=== PATIENT | male | born 1990 | race Caucasian/White ===

== ENCOUNTER 2019-01-31 10:38 | Emergency (ER) | payer SELFPAY ==
[2019-01-31] MEDS ORDERED: ASPIRIN 81 MG TABLET, CHEWABLE PO ONE (11:17)
[2019-01-31 11:23] LABS: ABSOLUTE EOSINOPHILS # (AUTO) 0.1 10^3/uL (0.0-0.6); ABSOLUTE MONOCYTES (AUTO) 1.2 10^3/uL (0.1-1.4); ABSOLUTE NEUT (AUTO) 10.1 10^3/uL (1.7-8.2); BASOPHILS % (AUTO) 0.4 % (0-2); EOSINOPHILS % (AUTO) 0.8 % (0-6); HEMATOCRIT 37.6 % (37.9-51.0); HEMOGLOBIN 12.8 g/dL (13.5-17.0); LYMPHOCYTES % (AUTO) 14.6 % (13-45); MEAN CORPUSCULAR HGB CONC 34.2 g/dL (32.0-36.0); MEAN CORPUSCULAR VOLUME 97 fl (80-97); MONOCYTES % (AUTO) 9.2 % (3-13); PLATELET COUNT 181 10^3/uL (150-450); RED CELL DISTRIBUTION WIDTH 14.9 % (11.5-14.0); TOTAL CELLS COUNTED % (AUTO) 100 %; WHITE BLOOD COUNT 13.5 10^3/uL (4.0-10.5)
--- NOTE | 2019-01-31 11:35 | ER Document Report ---
ED Medical Screen (RME) - General Chief Complaint: Chest Pain Stated Complaint: CHEST PAIN, LEFT ARM PAIN Time Seen by Provider: 01/31/19 11:31 Primary Care Provider: ROSANGELA FAGAN [Primary Care Provider] - Follow up as needed Mode of Arrival: Ambulatory Information source: Patient Notes: 28-year-old male presented to ED for complaint of chest pain. He states is been going on for couple weeks but he started having numbness down his arm with shortness of breath he has had aches. He denies any nausea vomiting or diarrhea. Drinks every day smokes a pack and a half a day he states he also uses Subutex every other day probably less than a half a pole. Patient is alert oriented respirations regular nonlabored speaking in full sentences. I have greeted and performed a rapid initial assessment of this patient. A comprehensive ED assessment and evaluation of the patient, analysis of test results and completion of medical decision making process will be conducted by an additional ED providers. - Related Data Allergies/Adverse Reactions: No Known Allergies Allergy (Unverified 01/31/19 10:40) Past Medical History - Social History Chew tobacco use (# tins/day): No Frequency of alcohol use: Heavy Drug Abuse: None Course - Laboratory Result Diagrams: 01/31/19 11:15 01/31/19 11:15 Laboratory results interpreted by me: 01/31/19 11:15 WBC 13.5 H RBC 3.90 L Hgb 12.8 L Hct 37.6 L RDW 14.9 H Absolute Neuts (auto) 10.1 H Doctor's Discharge - Discharge Referrals: ROSANGELA FAGAN [Primary Care Provider] - Follow up as needed
[2019-01-31 11:40] LABS: ALBUMIN 4.8 g/dL (3.5-5.0); ALKALINE PHOSPHATASE 94 U/L (38-126); ANION GAP 9 (5-19); ASPARTATE AMINO TRANSFERASE 160 U/L (17-59); BILIRUBIN,DIRECT 0.1 mg/dL (0.0-0.4); BILIRUBIN,TOTAL 0.4 mg/dL (0.2-1.3); BLOOD UREA NITROGEN 15 mg/dL (7-20); CALCIUM 9.6 mg/dL (8.4-10.2); CARBON DIOXIDE 29 mmol/L (22-30); CHLORIDE 99 mmol/L (98-107); CREATINE KINASE 218 U/L (55-170); GLUCOSE 97 mg/dL (75-110); POTASSIUM 4.1 mmol/L (3.6-5.0); TOTAL PROTEIN 7.3 g/dL (6.3-8.2)
[2019-01-31 11:54] LABS: TROPONIN I < 0.012 ng/mL
--- NOTE | 2019-01-31 11:57 | RADIOLOGY REPORT (SQ) ---
EXAM DESCRIPTION: CHEST SINGLE VIEW COMPLETED DATE/TIME: 01/31/2019 11:49 am REASON FOR STUDY: chest pain COMPARISON: None. EXAM PARAMETERS: NUMBER OF VIEWS: One view. TECHNIQUE: Single frontal radiographic view of the chest acquired. RADIATION DOSE: NA LIMITATIONS: None. FINDINGS: LUNGS AND PLEURA: No opacities, masses or pneumothorax. No pleural effusion. MEDIASTINUM AND HILAR STRUCTURES: No masses. Contour normal. HEART AND VASCULAR STRUCTURES: Heart normal in size. Normal vasculature. BONES: No acute findings. HARDWARE: None in the chest. OTHER: No other significant finding. IMPRESSION: NO ACUTE RADIOGRAPHIC FINDING IN THE CHEST. TECHNICAL DOCUMENTATION: JOB ID: [id number] [employer]- All Rights Reserved Reading location - IP/workstation name: [email or web address]
[2019-01-31] MEDS ORDERED: NORMAL SALINE 1000 ML 1,000 ML IV ONE (13:32)
[2019-01-31] MEDS ORDERED: LIDOCAINE 2% VISCOUS SOLN 20 ML UDCUP PO ONE (16:04)
[2019-01-31] MEDS ORDERED: METOCLOPRAMIDE HCL ORAL SOLN 10 MG/10 ML UDCUP PO ONE (16:04)
[2019-01-31] MEDS ORDERED: MAG HYDROX/AL HYDROX/SIMETH SUSP 30 ML UDCUP PO ONE (16:04)
[2019-01-31 16:33] LABS: URINE AMPHETAMINES SCREEN NEGATIVE; URINE BARBITURATES SCREEN NEGATIVE; URINE BENZODIAZEPINES SCREEN NEGATIVE; URINE COCAINE SCREEN NEGATIVE; URINE MARIJUANA (THC) SCREEN NEGATIVE; URINE METHADONE SCREEN NEGATIVE; URINE PHENCYCLIDINE SCREEN NEGATIVE
--- NOTE | 2019-01-31 17:23 | ER Document Report ---
ED General - General Chief Complaint: Chest Pain Stated Complaint: CHEST PAIN, LEFT ARM PAIN Time Seen by Provider: 01/31/19 11:31 Primary Care Provider: ROSANGELA FAGAN [NO LOCAL MD] - Follow up as needed Mode of Arrival: Ambulatory Notes: RME NOTE: 28-year-old male presented to ED for complaint of chest pain. He states is been going on for couple weeks but he started having numbness down his arm with shortness of breath he has had aches. He denies any nausea vomiting or diarrhea. Drinks every day smokes a pack and a half a day he states he also uses Subutex every other day probably less than a half a pole. Patient is alert oriented respirations regular nonlabored speaking in full sentences. MY HPI: Patient voices upon my assessment that he has had sharp epigastric abdominal pains intermittently for the last couple of weeks. States he has not taken any medications. States that sometimes he feels as though bilateral upper extremities go numb. When I asked him specifically if he feels as though he is breathing fast during his episodes he stops to think. States "yeah I guess." States his mother has at an early age from coronary artery disease which concerned him which is why he presents to the emergency room. Patient voices he does smoke cigarettes but is denying any history of high blood pressure, hyperlipidemia, diabetes. - Related Data Allergies/Adverse Reactions: No Known Allergies Allergy (Unverified 01/31/19 10:40) Past Medical History - General Information source: Patient - Social History Smoking Status: Current Every Day Smoker Chew tobacco use (# tins/day): No Frequency of alcohol use: Heavy Drug Abuse: None Family History: Reviewed & Not Pertinent Patient has suicidal ideation: No Patient has homicidal ideation: No Review of Systems - Review of Systems Constitutional: denies: Fever EENT: No symptoms reported Cardiovascular: See HPI Respiratory: No symptoms reported Gastrointestinal: See HPI Genitourinary: No symptoms reported Male Genitourinary: No symptoms reported Musculoskeletal: No symptoms reported Skin: No symptoms reported Hematologic/Lymphatic: No symptoms reported Neurological/Psychological: No symptoms reported Physical Exam - Vital signs Vitals: Resp Pulse Ox 19 97 01/31/19 11:17 01/31/19 11:17 - Notes Notes: GENERAL: Alert, interacts well. No acute distress. HEAD: Normocephalic, atraumatic. EYES: Pupils equal, round, and reactive to light. Extraocular movements intact. ENT: Oral mucosa moist, tongue midline. NECK: Full range of motion. Supple. Trachea midline. LUNGS: Clear to auscultation bilaterally, no wheezes, rales, or rhonchi. No respiratory distress. HEART: Regular rate and rhythm. No murmur ABDOMEN: Soft, epigastric abdominal pain noted. No right upper quadrant or left upper quadrant pain noted. Non-distended. Bowel sounds present in all 4 quadrants. EXTREMITIES: Moves all 4 extremities spontaneously. No edema, normal radial and dorsalis pedis pulses bilaterally. No cyanosis. BACK: no cervical, thoracic, lumbar midline tenderness. No saddle anesthesia, normal distal neurovascular exam. NEUROLOGICAL: Alert and oriented x3. Normal speech. cranial nerves II through XII grossly intact. PSYCH: Normal affect, normal mood. SKIN: Warm, dry, normal turgor. No rashes or lesions noted. Course - Re-evaluation Re-evalutation: Initial orders placed by E provider. Upon my assessment patient does appear to have more epigastric abdominal pain. Lipase added to order. Lipase is negative. Patient was given a GI cocktail which relieved his pain. Discussed with patient likely diagnosis of gastritis and following up with primary care provider. At this time will discharge with return precautions and follow-up recommendations. Verbal discharge instructions given a the bedside and opportunity for questions given. Medication warnings reviewed. Patient is in agreement with this plan and has verbalized understanding of return precautions and the need for primary care follow-up in the next 24-72 hours. This medical record was dictated with voice recognizing software. There may be grammatical, syntax errors that are unintended. EKG shows sinus rhythm rate of 92, QTc 446, normal early repolarization pattern. - Vital Signs Vital signs: Temp Pulse Resp BP Pulse Ox 98.5 F 12 130/75 H 97 01/31/19 11:33 01/31/19 12:30 01/31/19 12:30 01/31/19 12:30 - Laboratory Result Diagrams: 01/31/19 11:15 01/31/19 11:15 Laboratory results interpreted by me: 01/31/19 01/31/19 11:15 11:15 WBC 13.5 H RBC 3.90 L Hgb 12.8 L Hct 37.6 L RDW 14.9 H Absolute Neuts (auto) 10.1 H Sodium 136.8 L AST 160 H Creatine Kinase 218 H Discharge - Discharge Clinical Impression: Epigastric abdominal pain Gastritis Qualifiers: Gastritis type: unspecified gastritis Chronicity: acute Gastritis bleeding: without bleeding Qualified Code(s): K29.00 - Acute gastritis without bleeding Condition: Stable Disposition: HOME, SELF-CARE Instructions: Gastritis ([facility]) Additional Instructions: You have been seen and treated in the emergency department for your generalized epigastric abdominal pain. Likely this is gastritis. This is an inflammation of your esophageal lining. Please take medications as prescribed. Please also follow-up at [facility], [facility] for continued care. Return to the emergency room for any concerns. Prescriptions: Sucralfate [Carafate 1 gm Tablet] 1 gm PO QID #20 tablet Famotidine [Pepcid 40 mg Tablet] 40 mg PO BID #60 tablet Forms: Return to Work Referrals: RYLAN,NO [NO LOCAL MD] - Follow up as needed [facility] [Provider Group] - Follow up as needed [facility] [Provider Group] - Follow up as needed
[2019-01-31 17:56] VITALS: BP 132/84
--- NOTE | 2019-02-01 08:45 | EKG REPORT ---
SEVERITY:- NORMAL ECG - SINUS RHYTHM ST ELEV, PROBABLE NORMAL EARLY REPOL PATTERN : Confirmed by: Racheal Barrera MD 01-Feb-2019 08:44:59
== END 2019-01-31 17:56 | disposition home or self-care (01) ==
LOC: ER 10:38
DX: K29.00 Acute gastritis without bleeding (principal); R10.13 Epigastric pain; M79.602 Pain in left arm; R07.9 Chest pain, unspecified; R20.0 Anesthesia of skin; R06.02 Shortness of breath; F17.200 Nicotine dependence, unspecified, uncomplicated
CPT/HCPCS: 93005; 99284; 96360; 36415; 82553; 82550; 83690; 85025; 80053; 84484; 80307; 71045; 93010; J3490; J7030

== ENCOUNTER 2019-07-13 06:35 | Inpatient (IN) | payer SELFPAY ==
[2019-07-13] MEDS ORDERED: NORMAL SALINE 1000 ML 1,000 ML IV ONE (06:45)
[2019-07-13] MEDS ORDERED: ONDANSETRON HCL INJ/PF 4 MG/2 ML SDV IV ONE ×2 (06:45→14:03)
[2019-07-13 07:05] LABS: ABSOLUTE BASOPHILS # (AUTO) 0.1 10^3/uL (0.0-0.2); ABSOLUTE LYMPHOCYTES (AUTO) 1.5 10^3/uL (0.5-4.7); ABSOLUTE MONOCYTES (AUTO) 0.7 10^3/uL (0.1-1.4); ABSOLUTE NEUT (AUTO) 9.6 10^3/uL (1.7-8.2); BASOPHILS % (AUTO) 0.5 % (0-2); EOSINOPHILS % (AUTO) 0.2 % (0-6); HEMATOCRIT 31.9 % (37.9-51.0); HEMOGLOBIN 11.2 g/dL (13.5-17.0); LYMPHOCYTES % (AUTO) 12.8 % (13-45); MEAN CORPUSCULAR HEMOGLOBIN 38.8 pg (27.0-33.4); MEAN CORPUSCULAR HGB CONC 35.1 g/dL (32.0-36.0); MONOCYTES % (AUTO) 5.8 % (3-13); PLATELET COUNT 242 10^3/uL (150-450); RED BLOOD COUNT 2.89 10^6/uL (4.35-5.55); RED CELL DISTRIBUTION WIDTH 20.2 % (11.5-14.0); SEGMENTED NEUTROPHILS % (AUTO) 80.7 % (42-78); TOTAL CELLS COUNTED % (AUTO) 100 %; WHITE BLOOD COUNT 11.9 10^3/uL (4.0-10.5)
[2019-07-13] MEDS ORDERED: MORPHINE SULFATE 10 MG/ML INJ IV ONE ×5 (07:18→15:28)
[2019-07-13] MEDS ORDERED: LIDOCAINE 2% VISCOUS SOLN 15 ML UDCUP PO ONE (07:19)
[2019-07-13] MEDS ORDERED: MAG HYDROX/AL HYDROX/SIMETH SUSP 30 ML UDCUP PO ONE (07:19)
[2019-07-13] MEDS ORDERED: PANTOPRAZOLE SODIUM 40 MG VIAL IV ONE (07:20)
[2019-07-13 07:21] LABS: ALBUMIN 3.3 g/dL (3.5-5.0); ALKALINE PHOSPHATASE 197 U/L (38-126); ANION GAP 7 (5-19); ASPARTATE AMINO TRANSFERASE 102 U/L (17-59); BILIRUBIN,DIRECT 0.3 mg/dL (0.0-0.4); BILIRUBIN,TOTAL 1.2 mg/dL (0.2-1.3); BLOOD UREA NITROGEN 11 mg/dL (7-20); CALCIUM 8.2 mg/dL (8.4-10.2); CARBON DIOXIDE 29 mmol/L (22-30); CHLORIDE 102 mmol/L (98-107); GLUCOSE 115 mg/dL (75-110); POTASSIUM 3.5 mmol/L (3.6-5.0)
[2019-07-13 07:26] LABS: MEAN CORPUSCULAR VOLUME 111 fl (80-97)
[2019-07-13 07:29] LABS: ANISOCYTOSIS 2+; HOWELL-JOLLY BODIES PRESENT; PLATELET CLUMPS PRESENT; PLATELET COMMENT ADEQUATE; POLYCHROMASIA SLIGHT; STOMATOCYTES 1+
--- NOTE | 2019-07-13 08:06 | ER Document Report ---
Entered by ELENI MENDOZA SCRIBE 07/13/19 0717 Acting as scribe for:ASHLEY VILLANUEVA MD ED GI/ - General Chief Complaint: Abdominal Pain Stated Complaint: STOMACH PAIN Time Seen by Provider: 07/13/19 06:59 Primary Care Provider: OSCAR SINGLETON MD [Primary Care Provider] - Follow up as needed Mode of Arrival: Ambulatory Information source: Patient Notes: This 28-year-old male patient presents to the emergency department today with complaints of upper abdominal pain which began a few hours prior to arrival. Patient is writhing around in the bed and appears to be in significant pain. Patient is a daily drinker, when asked how much he drinks daily he says "I do not know, asked her" and motions to a female medical records specialist at bedside. She reports that he consumes approximately x3-4 22 ounce beers a day. Patient has vomited twice. Patient reported to nursing staff at triage that every morning when he wakes up he has nausea and dry heaves. Patient also reported somewhat chronic mild abdominal pain but he states that today is by far the worst pain he has had. Pertinent PMHx/PSHx: EtOH abuse - additional PMHx/PSHx not pertinent to this visit as recorded. PCP: none TRAVEL OUTSIDE OF THE [place] IN LAST 30 DAYS: No - Related Data Allergies/Adverse Reactions: No Known Allergies Allergy (Unverified 01/31/19 10:40) Home Medications: prilosec Past Medical History - General Information source: Patient, [facility] Records - Social History Smoking Status: Current Every Day Smoker Cigarette use (# per day): Yes Frequency of alcohol use: daily Lives with: Spouse/Significant other Family History: Reviewed & Not Pertinent Patient has suicidal ideation: No Patient has homicidal ideation: No - Medical History Medical History: Negative Surgical Hx: Negative Review of Systems - Review of Systems Constitutional: No symptoms reported EENT: No symptoms reported Cardiovascular: No symptoms reported Respiratory: No symptoms reported Gastrointestinal: See HPI, Abdominal pain, Nausea, Vomiting Genitourinary: No symptoms reported Male Genitourinary: No symptoms reported Musculoskeletal: No symptoms reported Skin: No symptoms reported Hematologic/Lymphatic: No symptoms reported Neurological/Psychological: No symptoms reported -: Yes All other systems reviewed and negative Physical Exam - Vital signs Vitals: Temp Pulse Resp BP Pulse Ox 97.5 F 96 18 140/81 H 100 07/13/19 06:39 07/13/19 06:39 07/13/19 06:39 07/13/19 06:39 07/13/19 06:39 - Notes Notes: Physical Exam: General: Alert, appears quite uncomfortable, writhing around in the bed compl aining of pain. HEENT: Normocephalic. Atraumatic. PERRL. Extraocular movements intact. Oropharynx clear. Neck: Supple. Non-tender. Respiratory: No respiratory distress. Clear and equal breath sounds bilaterally. Cardiovascular: Regular rate and rhythm. Abdominal: Markedly decreased, nearly absent bowel sounds. Guarding throughout. Patient is moderately tender with palpation across his entire abdomen, severe tenderness with palpation of the upper abdomen. Unable to tell if there is true rebound tenderness. No distension. Back: No gross abnormalities. Extremities: Moves all four extremities. Upper extremities: Normal inspection. Normal ROM. Lower extremities: Normal inspection. No edema. Normal ROM. Neurological: Normal cognition. AAOx4. Normal speech. Psychological: Normal affect. Normal Mood. Skin: Warm. Dry. Normal color. Course - Vital Signs Vital signs: Temp Pulse Resp BP Pulse Ox 99 F 96 24 H 100/86 H 98 07/13/19 15:42 07/13/19 06:39 07/13/19 12:33 07/13/19 14:01 07/13/19 15:04 - Laboratory Result Diagrams: 07/13/19 06:49 07/13/19 06:49 Laboratory results interpreted by me: 07/13/19 07/13/19 07/13/19 06:49 06:49 06:49 WBC 11.9 H RBC 2.89 L Hgb 11.2 L Hct 31.9 L MCV 111 H MCH 38.8 H RDW 20.2 H Lymph % (Auto) 12.8 L Absolute Neuts (auto) 9.6 H Seg Neutrophils % 80.7 H Potassium 3.5 L Glucose 115 H Calcium 8.2 L AST 102 H Alkaline Phosphatase 197 H Total Protein 6.0 L Albumin 3.3 L Lipase 4981.6 H - Diagnostic Test Radiology reviewed: Image reviewed, Reports reviewed - Right upper quadrant ultrasound is read as a distended gallbladder with no other abnormalities. When I looked at the ultrasound, the gallbladder did not look distended. CT scan of the abdomen pelvis with IV and oral contrast shows acute pancreatitis, moderate ascites, hepatomegaly with moderate hepatic steatosis. - Consults Dr. Martin Time consulted: 10:35 Consulted provider: will come to ER - Recommends medicine admission, and CT scan with oral and IV contrast. Discharge - Discharge Clinical Impression: Acute abdominal pain Pancreatitis Qualifiers: Chronicity: acute Pancreatitis type: unspecified pancreatitis type Acute p ancreatitis complication: unspecified Qualified Code(s): K85.90 - Acute pancreatitis without necrosis or infection, unspecified Condition: Stable Disposition: ADMITTED INPATIENT Admitting Provider: Maggie (Hospitalist) Unit Admitted: Medical Floor Referrals: OSCAR SINGLETON MD [Primary Care Provider] - Follow up as needed Scribe Attestation: 07/13/19 07:26 I personally performed the services described in the documentation, reviewed and edited the documentation which was dictated to the scribe in my presence, and it accurately records my words and actions. I personally performed the services described in the documentation, reviewed and edited the documentation which was dictated to the scribe in my presence, and it accurately records my words and actions.
--- NOTE | 2019-07-13 08:22 | RADIOLOGY REPORT (SQ) ---
EXAM DESCRIPTION: ACUTE ABDOMEN SERIES COMPLETED DATE/TIME: 07/13/2019 7:53 am REASON FOR STUDY: Severe epigastric abd pain,chronic EtOH abuse COMPARISON: None. NUMBER OF VIEWS: Three views. TECHNIQUE: Frontal chest, supine abdomen and upright/decubitus abdomen radiographic images acquired. LIMITATIONS: None. FINDINGS: CHEST: Lungs clear of infiltrates. FREE AIR: None. No abnormal gas collections. BOWEL GAS PATTERN: Nonobstructive pattern. No dilated loops or air fluid levels. CALCIFICATIONS: No suspicious calcifications. HARDWARE: None in the abdomen. SOFT TISSUES: No gross mass or suggestion of organomegaly. BONES: No acute fracture. No worrisome bone lesions. OTHER: No other significant finding. IMPRESSION: NO RADIOGRAPHIC EVIDENCE FOR ACUTE ABDOMINAL DISEASE. TECHNICAL DOCUMENTATION: JOB ID: [id number] 2010 [employer]- All Rights Reserved Reading location - IP/workstation name: [email or web address]
[2019-07-13] MEDS ORDERED: RINGERS SOLUTION,LACTATED 1,000 ML IV ONE ×2 (08:37→15:44)
[2019-07-13] MEDS ORDERED: MORPHINE SULFATE 10 MG/ML INJ NEB ONE (08:52)
[2019-07-13 09:22] LABS: APPEARANCE,URINE CLEAR; BILIRUBIN,URINE NEGATIVE (NEGATIVE); COLOR,URINE YELLOW; GLUCOSE, URINE NEGATIVE (NEGATIVE); KETONES,URINE NEGATIVE (NEGATIVE); LEUKOCYTE ESTERASE,URINE NEGATIVE (NEGATIVE); NITRITE,URINE NEGATIVE (NEGATIVE); PROTEIN,URINE NEGATIVE (NEGATIVE); URINE SPECIFIC GRAVITY 1.013; UROBILINOGEN,URINE NEGATIVE mg/dL (<2.0)
--- NOTE | 2019-07-13 09:43 | RADIOLOGY REPORT (SQ) ---
EXAM DESCRIPTION: U/S ABDOMEN LIMITED W/O DOP COMPLETED DATE/TIME: 07/13/2019 9:27 am REASON FOR STUDY: Acute pancreatitis COMPARISON: None. TECHNIQUE: Dynamic and static grayscale images acquired of the abdomen and recorded on PACS. Additio nal selected color Doppler and spectral images recorded. LIMITATIONS: None. FINDINGS: PANCREAS: No masses. Visualized pancreatic duct normal caliber. LIVER: No masses. Echotexture normal. LIVER VASCULATURE: Normal directional flow of the main portal vein and hepatic veins. GALLBLADDER: Distended. No gallstones or wall thickness. ULTRASOUND-DETECTED OHARA'S SIGN: Positive. INTRAHEPATIC DUCTS AND COMMON DUCT: CBD and intrahepatic ducts normal caliber. No filling defects. INFERIOR VENA CAVA: Normal flow. AORTA: No aneurysm. RIGHT KIDNEY: Normal size. Normal echogenicity. No solid or suspicious masses. No hydronephrosis. No calcifications. PERITONEAL AND RIGHT PLEURAL SPACE: No ascites or effusions. OTHER: No other significant findings. IMPRESSION: Distended gallbladder without stones. Positive sonographic Ohara's sign. TECHNICAL DOCUMENTATION: JOB ID: [id number] 2010 [employer]- All Rights Reserved Reading location - IP/workstation name: [email or web address]
[2019-07-13] MEDS ORDERED: PIPERACILLIN/TAZOBACTAM 3.375 GM VIAL IV ONE (10:56)
--- NOTE | 2019-07-13 11:06 | PDOC CONSULTATION ---
Consultation Consult Date: 07/13/19 Attending physician:: SILAS VILLANUEVA Provider Consulted: BRIAN BERMUDEZ Consult reason:: Acute abdominal pain History of Present Illness Admission Date/PCP: OSCAR SINGLETON MD History of Present Illness: KACY DUMAS is a 28 year old male Presents emergency department via ground rescue complaining of acute onset abdominal pain nausea and one episode of vomiting. Last bowel movement earlier this morning, normal. Patient reports a history of waking up with dry heaves and nausea. He drinks alcohol, specifically multiple beers, daily. He denies history of pancreatitis, but admits to having had gastritis. In the emergency department he was found to have significant abdominal tenderness and acute abdominal series was interpreted as normal. Patient had a right upper quadrant ultrasound which was interpreted as having a distended gallbladder. Patient's liver function studies within normal limits. His lipase level was 4981. Surgery was consulted to rule out surgical cause for his symptoms. He has received IV fluids and pain medication in the ED Past Medical History Past Medical History: Gastritis: Alcohol abuse, smoking Past Surgical History Past Surgical History: Nonoperative management of the thumb injury Social History Lives with: Spouse/Significant other Smoking Status: Current Every Day Smoker Electronic Cigarette use?: No Frequency of Alcohol Use: Heavy Hx Recreational Drug Use: No Hx Prescription Drug Abuse: No Family History Family History: None, Reviewed & Not Pertinent Parental Family History Reviewed: No Children Family History Reviewed: No Sibling(s) Family History Reviewed.: No Medication/Allergy Home Medications: Famotidine [Pepcid 40 mg Tablet] 40 mg PO BID #60 tablet 01/31/19 Sucralfate [Carafate 1 gm Tablet] 1 gm PO QID #20 tablet 01/31/19 Allergies/Adverse Reactions: No Known Allergies Allergy (Unverified 01/31/19 10:40) Review of Systems Constitutional: PRESENT: as per HPI Eyes: ABSENT: visual disturbances Ears: ABSENT: hearing changes Cardiovascular: ABSENT: chest pain, dyspnea on exertion, edema, orthropnea, palpitations Respiratory: ABSENT: cough, hemoptysis Gastrointestinal: PRESENT: as per HPI, other - Denies history of trauma; has nausea, and dry heaves in the morning. Genitourinary: ABSENT: dysuria, hematuria Musculoskeletal: ABSENT: joint swelling Endocrine: ABSENT: cold intolerance, heat intolerance, polydipsia, polyuria Hematologic/Lymphatic: ABSENT: easy bleeding, easy bruising Physical Exam Vital Signs: Temp Pulse Resp BP Pulse Ox 97.5 F 96 22 H 125/79 98 07/13/19 06:39 07/13/19 06:39 07/13/19 09:01 07/13/19 09:01 07/13/19 09:01 Intake & Output 07/12/19 07/13/19 07/14/19 06:59 06:59 06:59 Intake Total 1999 Balance 1999 Weight 99.3 kg General appearance: PRESENT: mild distress, other - Patient unable to get comfortable in the bed Head exam: PRESENT: atraumatic Eye exam: PRESENT: EOMI Ear exam: PRESENT: normal external ear exam Mouth exam: PRESENT: dry mucosa Neck exam: PRESENT: full ROM Respiratory exam: PRESENT: clear to auscultation cheri Cardiovascular exam: PRESENT: RRR Pulses: PRESENT: normal carotid pulses, normal radial pulses, normal femoral pulses, normal dorsalis pedis pul GI/Abdominal exam: PRESENT: other - Slightly distended, hypoactive bowel sounds, diffusely tender. Poorly localized Rectal exam: PRESENT: deferred Extremities exam: PRESENT: full ROM Musculoskeletal exam: PRESENT: full ROM Neurological exam: PRESENT: oriented to person, oriented to place, oriented to time, oriented to situation Psychiatric exam: PRESENT: anxious Results Laboratory Results: 07/13/19 06:49 07/13/19 06:49 07/13/19 07/13/19 07/13/19 06:49 06:49 06:49 WBC 11.9 H RBC 2.89 L Hgb 11.2 L Hct 31.9 L MCV 111 H MCH 38.8 H MCHC 35.1 RDW 20.2 H Plt Count 242 Seg Neutrophils % 80.7 H Sodium 137.6 Potassium 3.5 L Chloride 102 Carbon Dioxide 29 Anion Gap 7 BUN 11 Creatinine 0.77 Est GFR ( Amer) > 60 Glucose 115 H Calcium 8.2 L Total Bilirubin 1.2 AST 102 H Alkaline Phosphatase 197 H Total Protein 6.0 L Albumin 3.3 L Lipase 4981.6 H Urine Color Urine Appearance Urine pH Ur Specific [place] Urine Protein Urine Glucose (UA) Urine Ketones Urine Blood Urine Nitrite Ur Leukocyte Esterase Urine WBC (Auto) 07/13/19 08:57 WBC RBC Hgb Hct MCV MCH MCHC RDW Plt Count Seg Neutrophils % Sodium Potassium Chloride Carbon Dioxide Anion Gap BUN Creatinine Est GFR ( Amer) Glucose Calcium Total Bilirubin AST Alkaline Phosphatase Total Protein Albumin Lipase Urine Color YELLOW Urine Appearance CLEAR Urine pH 5.0 Ur Specific [place] 1.013 Urine Protein NEGATIVE Urine Glucose (UA) NEGATIVE Urine Ketones NEGATIVE Urine Blood NEGATIVE Urine Nitrite NEGATIVE Ur Leukocyte Esterase NEGATIVE Urine WBC (Auto) 2 Impressions: Acute Abdomen Series 07/13/19 07:18 IMPRESSION: NO RADIOGRAPHIC EVIDENCE FOR ACUTE ABDOMINAL DISEASE. Abdomen Ultrasound 07/13/19 08:37 IMPRESSION: Distended gallbladder without stones. Positive sonographic Ohara's sign. Assessment & Plan - Diagnosis (1) Acute abdominal pain Is this a current diagnosis for this admission?: Yes Plan: Impression: Acute onset abdominal pain with significant abdominal tenderness, nonlocalized, guarding, leukocytosis, and fairly unremarkable imaging thus far. 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 The gallbladder on ultrasonography does not appear distended, and there are no stones. Acute abdominal series suggests intraperitoneal edema versus fluid. Liver function studies within normal limits. There is no immediate indication for surgical intervention. Recommendations: 1. Patient needs admission for management of pain, IV fluids, n.p.o. status. I have suggested the patient be admitted to the hospitalist service with surgery consulting and this was discussed with Dr. Silas Graves. 2. I have recommended we obtain a CT scan of the abdomen and pelvis with oral contrast to further delineate the extent of pancreatitis, and to rule out potential causes of his acute abdominal pain. 3. I explained what pancreatitis is to the patient and his significant mother, and the initial management thereof. 4. We will follow patient with you. (2) Pancreatitis Qualifiers: Chronicity: acute Pancreatitis type: unspecified pancreatitis type Acute pancreatitis complication: unspecified Qualified Code(s): K85.90 - Acute pancreatitis without necrosis or infection, unspecified Is this a current diagnosis for this admission?: Yes (3) Smoker Is this a current diagnosis for this admission?: Yes (4) Alcohol abuse Is this a current diagnosis for this admission?: Yes - Time Time Spent: 30 to 50 Minutes Smoking Cessation Education: 3 to 10 minutes Medications reviewed and adjusted accordingly: Yes Anticipated discharge: Home - Inpatient Certification Based on my medical assessment, after consideration of the patient's comorbidities, presenting symptoms, or acuity I expect that the services needed warrant INPATIENT care.: Yes I certify that my determination is in accordance with my understanding of Medicare's requirements for reasonable and necessary INPATIENT services [42 CFR 412.3e].: Yes Medical Necessity: Need For IV Fluids, Need for Pain Control
--- NOTE | 2019-07-13 15:47 | RADIOLOGY REPORT (SQ) ---
EXAM DESCRIPTION: CT ABD/PELVIS WITH IV ORAL COMPLETED DATE/TIME: 07/13/2019 2:09 pm REASON FOR STUDY: Acute pancreatitis, ascites, guarding. COMPARISON: Abdominal ultrasound, same date. TECHNIQUE: CT scan of the abdomen and pelvis performed using helical scanning technique with dynamic intravenous contrast injection. No oral contrast. Images reviewed with lung, soft tissue, and bone windows. Reconstructed coronal and sagittal MPR images reviewed. Delayed images for evaluation of the urinary system also acquired. All images stored on PACS. All CT scanners at this facility use dose modulation, iterative reconstruction, and/or weight based d osing when appropriate to reduce radiation dose to as low as reasonably achievable (ALARA). [facility]: Dose Right [facility]: CareDose [facility]: Dose Right [facility]: Teradose 4D [facility]: EmboMedics CONTRAST TYPE AND DOSE: contrast/concentration: Isovue 350.00 mg/ml; Total Contrast Delivered: 100.0 ml; Total Saline Delivered: 72.0 ml RENAL FUNCTION: Greater than 60 RADIATION DOSE: CT Rad equipment meets quality standard of care and radiation dose reduction techniq ues were employed. CTDIvol: 6.4 - 9.0 mGy. DLP: 883 mGy-cm.. LIMITATIONS: None. FINDINGS: LOWER CHEST: No significant findings. No nodules or infiltrates. No effusion. LIVER: The liver is markedly enlarged measuring 24.8 cm craniocaudal at the midclavicular line. Ther e is moderate diffuse hepatic steatosis. No focal hepatic mass. Hepatic and portal veins are patent . No intrahepatic or extrahepatic biliary ductal dilation. SPLEEN: Normal size. No focal lesions. PANCREAS: The pancreas is diffusely enlarged with homogeneous enhancement. No focal pancreatic mass. No pancreatic ductal dilation. No evidence of pancreatic necrosis. There is peripancreatic fluid. No focal pseudocyst. GALLBLADDER: No identified stones by CT criteria. No inflammatory changes to suggest cholecystitis. ADRENAL GLANDS: No significant masses or asymmetry. RIGHT KIDNEY AND URETER: No solid masses. No significant calcifications. No hydronephrosis or hyd roureter. LEFT KIDNEY AND URETER: No solid masses. No significant calcifications. No hydronephrosis or hydr oureter. AORTA AND VESSELS: No aneurysm. No dissection. Renal arteries, SMA, celiac without stenosis. RETROPERITONEUM: No retroperitoneal adenopathy, hemorrhage or masses. BOWEL AND PERITONEAL CAVITY: There is a moderate amount of ascites. No pneumoperitoneum. No bowel o bstruction. No bowel wall thickening. APPENDIX: Normal. PELVIS: No mass. No free fluid. Normal bladder. ABDOMINAL WALL: No masses. No hernias. BONES: No significant or acute findings. OTHER: No other significant finding. IMPRESSION: 1. Diffuse enlargement of the pancreas without evidence of pancreatic necrosis. Findings are consist ent with acute pancreatitis. 2. Moderate amount of ascites in the abdomen and pelvis. No focal drainable abscess. 3. Hepatomegaly with moderate hepatic steatosis. TECHNICAL DOCUMENTATION: JOB ID: [id number] Quality ID # [id number]: Final reports with documentation of one or more dose reduction techniques (e.g., Au tomated exposure control, adjustment of the mA and/or kV according to patient size, use of iterative reconstruction technique) 2010 [employer]- All Rights Reserved Reading location - IP/workstation name: [email or web address]
[2019-07-13] MEDS ORDERED: ONDANSETRON HCL INJ/PF 4 MG/2 ML SDV IV PRN (17:03)
[2019-07-13] MEDS ORDERED: RINGERS SOLUTION,LACTATED 1,000 ML IV PRN ×2 (17:03→17:38)
[2019-07-13] MEDS ORDERED: GLUCAGON,HUMAN RECOMB 1 MG INJ SUBCUT PRN (17:03)
[2019-07-13] MEDS ORDERED: DEXTROSE 50%-WATER 25 GM/50 ML DISP.SYRIN IV PRN ×2 (17:03)
[2019-07-13] MEDS ORDERED: ACETAMINOPHEN 325 MG TABLET PO PRN (17:03)
[2019-07-13] MEDS ORDERED: DEXTROSE 40% GEL 15 GM TUBE PO PRN ×2 (17:03)
[2019-07-13] MEDS ORDERED: MORPHINE SULFATE 10 MG/ML INJ IV PRN (17:10)
[2019-07-13] MEDS ORDERED: POTASSI CL 20 MEQ/50 ML RIDER 20 MEQ/50 ML RTUPB IV ONE (17:15)
--- NOTE | 2019-07-13 17:41 | PDOC H&P ---
History of Present Illness Admission Date/PCP: 07/13/19 16:09 OSCAR SINGLETON MD Patient complains of: Abdominal pain, nausea and vomiting History of Present Illness: KACY DUMAS is a 28 year old male with no significant medical or surgical history presents to the emergency department with severe abdominal pain. The patient states that his stomach had been feeling upset yesterday but he was not having any significant pain. At approximately 3 AM he was awakened with abdominal pain. It was severe. It was associated with nausea and vomiting. He denied fever or chills. He denies hematemesis. He has never had anything like this before. He admits to drinking 3 of the 22 ounce cans of beer daily and smoking 1 to 1-1/2 packs of cigarettes daily. Evaluation revealed an elevated lipase of 4981.6. Alkaline phosphatase was slightly elevated at 197. ALT was normal and AST was 102. Total bilirubin was normal. His potassium was low at 3.5. His white blood cell count was elevated at 11.9 and 81% neutrophils. Hemoglobin was 11.2, hematocrit 31.9 and his MCV was elevated at 111. Diagnostic imaging shows acute pancreatitis with hepatomegaly and ascites. Surgery has seen the patient. Will admit patient to the medical service. Past Medical History Psychiatric Medical History: Reports: Alcohol Dependency, Tobacco Dependency Past Surgical History Past Surgical History: Reports: None Social History Information Source: Patient Lives with: Spouse/Significant other Smoking Status: Current Every Day Smoker Electronic Cigarette use?: No Frequency of Alcohol Use: Heavy Hx Recreational Drug Use: No Hx Prescription Drug Abuse: No - Advance Directive Resuscitation Status: Do Not Resuscitate Family History Family History: Reviewed & Not Pertinent, CAD, Other - Asthma Parental Family History Reviewed: Yes Children Family History Reviewed: NA Sibling(s) Family History Reviewed.: Yes Medication/Allergy Home Medications: Famotidine [Pepcid 40 mg Tablet] 40 mg PO BID #60 tablet 01/31/19 Sucralfate [Carafate 1 gm Tablet] 1 gm PO QID #20 tablet 01/31/19 Allergies/Adverse Reactions: No Known Allergies Allergy (Unverified 01/31/19 10:40) Review of Systems All systems: reviewed and no additional remarkable complaints except as stated Constitutional: PRESENT: as per HPI Respiratory: PRESENT: other - Epigastric discomfort with deep breaths Gastrointestinal: PRESENT: abdominal pain, nausea, vomiting, other - Distended abdomen Physical Exam Vital Signs: Temp Pulse Resp BP Pulse Ox 99 F 96 24 H 100/86 H 98 07/13/19 15:42 07/13/19 06:39 07/13/19 12:33 07/13/19 14:01 07/13/19 15:04 Intake & Output 07/12/19 07/13/19 07/14/19 06:59 06:59 06:59 Intake Total 1999 Balance 1999 Weight 99.3 kg General appearance: PRESENT: cooperative, severe distress, well-developed Head exam: PRESENT: atraumatic, normocephalic Eye exam: PRESENT: conjunctiva pink, EOMI. ABSENT: scleral icterus Ear exam: PRESENT: normal external ear exam. ABSENT: bleeding, drainage Mouth exam: PRESENT: dry mucosa, tongue midline Respiratory exam: PRESENT: clear to auscultation cheri, symmetrical, unlabored, other - Epigastric discomfort with deep breath. ABSENT: rales, rhonchi, tachypnea, wheezes Cardiovascular exam: PRESENT: RRR, +S1, +S2. ABSENT: diastolic murmur, systolic murmur GI/Abdominal exam: PRESENT: ascites - By diagnostic imaging, distended, firm, tenderness - Extremely tender especially in the epigastrium Rectal exam: PRESENT: deferred Gentrourinary exam: ABSENT: indwelling catheter Extremities exam: PRESENT: full ROM. ABSENT: pedal edema Musculoskeletal exam: PRESENT: normal inspection. ABSENT: deformity Neurological exam: PRESENT: alert, awake, oriented to person, oriented to place, oriented to time, oriented to situation, CN II-XII grossly intact. ABSENT: altered, motor sensory deficit Psychiatric exam: PRESENT: appropriate affect - Affect reflects his significant pain. ABSENT: agitated, anxious Focused psych exam: ABSENT: delusional, restlessness Skin exam: PRESENT: dry, normal color, warm. ABSENT: rash Results Laboratory Results: 07/13/19 06:49 07/13/19 06:49 07/13/19 07/13/19 07/13/19 06:49 06:49 06:49 WBC 11.9 H RBC 2.89 L Hgb 11.2 L Hct 31.9 L MCV 111 H MCH 38.8 H MCHC 35.1 RDW 20.2 H Plt Count 242 Seg Neutrophils % 80.7 H Sodium 137.6 Potassium 3.5 L Chloride 102 Carbon Dioxide 29 Anion Gap 7 BUN 11 Creatinine 0.77 Est GFR ( Amer) > 60 Glucose 115 H Calcium 8.2 L Total Bilirubin 1.2 AST 102 H Alkaline Phosphatase 197 H Total Protein 6.0 L Albumin 3.3 L Lipase 4981.6 H Urine Color Urine Appearance Urine pH Ur Specific [place] Urine Protein Urine Glucose (UA) Urine Ketones Urine Blood Urine Nitrite Ur Leukocyte Esterase Urine WBC (Auto) 07/13/19 08:57 WBC RBC Hgb Hct MCV MCH MCHC RDW Plt Count Seg Neutrophils % Sodium Potassium Chloride Carbon Dioxide Anion Gap BUN Creatinine Est GFR ( Amer) Glucose Calcium Total Bilirubin AST Alkaline Phosphatase Total Protein Albumin Lipase Urine Color YELLOW Urine Appearance CLEAR Urine pH 5.0 Ur Specific [place] 1.013 Urine Protein NEGATIVE Urine Glucose (UA) NEGATIVE Urine Ketones NEGATIVE Urine Blood NEGATIVE Urine Nitrite NEGATIVE Ur Leukocyte Esterase NEGATIVE Urine WBC (Auto) 2 Impressions: Acute Abdomen Series 07/13/19 07:18 IMPRESSION: NO RADIOGRAPHIC EVIDENCE FOR ACUTE ABDOMINAL DISEASE. Abdomen Ultrasound 07/13/19 08:37 IMPRESSION: Distended gallbladder without stones. Positive sonographic Ohara's sign. Abdomen/Pelvis CT 07/13/19 10:55 IMPRESSION: 1. Diffuse enlargement of the pancreas without evidence of pancreatic necrosis. Findings are consistent with acute pancreatitis. 2. Moderate amount of ascites in the abdomen and pelvis. No focal drainable abscess. 3. Hepatomegaly with moderate hepatic steatosis. Assessment and Plan - Diagnosis (1) Pancreatitis Qualifiers: Chronicity: acute Pancreatitis type: unspecified pancreatitis type Acute pancreatitis complication: unspecified Qualified Code(s): K85.90 - Acute pancreatitis without necrosis or infection, unspecified Is this a current diagnosis for this admission?: Yes (2) Ascites Qualifiers: Ascites type: due to alcoholic hepatitis Qualified Code(s): K70.11 - Alcoholic hepatitis with ascites Is this a current diagnosis for this admission?: Yes (3) Acute abdominal pain Is this a current diagnosis for this admission?: Yes (4) Hepatomegaly Is this a current diagnosis for this admission?: Yes (5) Alcoholic hepatitis with ascites Is this a current diagnosis for this admission?: Yes (6) Alcohol dependency Qualifiers: Substance use status: uncomplicated Qualified Code(s): F10.20 - Alcohol dependence, uncomplicated Is this a current diagnosis for this admission?: Yes (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 He will get aggressive IV fluids. We will continue to monitor the serum chemistries. Pancreatitis secondary to alcoholism Abdominal pain and ascites secondary to pancreatitis and possible alcohol related hepatitis-analgesia and supportive care. Consider Aldactone after further evaluation. Alcohol-related hepatitis with hepatomegaly and ascites-the patient was warned about worsening complications from ongoing alcoholism. In view of potential withdrawal IV benzodiazepine therapy is available. Alcohol and nicotine dependency-I have prescribed a nicotine patch as needed. When the patient is feeling better I will discuss potential detox plans. Megaloblastic anemia-the patient was mildly anemic but his MCV was 111. This is likely related to his alcohol abuse. I have ordered anemia studies and the patient will likely benefit from folic acid and B12. I have asked nursing to monitor intake and output. In addition to the IV benzodiazepine therapy, IV analgesia will be available. The patient will be n.p.o. He will get aggressive IV fluids. This will include a banana bag. We will check laboratory studies daily and continue ongoing evaluation of the patient. - Time Time Spent with patient: 35 or more minutes Smoking Cessation Education: 3 to 10 minutes Medications reviewed and adjusted accordingly: Yes Anticipated discharge: Home - Inpatient Certification Based on my medical assessment, after consideration of the patient's c omorbidities, presenting symptoms, or acuity I expect that the services needed warrant INPATIENT care.: Yes I certify that my determination is in accordance with my understanding of Medicare's requirements for reasonable and necessary INPATIENT services [42 CFR 412.3e].: Yes Medical Necessity: Need Close Monitoring Due to Risk of Patient Decompensation, Need For IV Fluids, Need for Pain Control, Risk of Complication if Not Cared For in Hospital Post Hospital Care: D/C [employer] Management Technician Documentation
[2019-07-13] MEDS: NORMAL SALINE 1000 ML 1,000 ML with POTASSIUM CHLORIDE 20 MEQ, MAGNESIUM SULFATE 8 MEQ,... IV SCH ×5 (19:27)
[2019-07-13] MEDS ORDERED: MAGNESIUM SULFATE/D5W 1 GM/100 ML RTUPB IV ONE (19:48)
[2019-07-13] MEDS ORDERED: THIAMINE HCL INJ 200 MG/2 ML VIAL IM ONE (19:49)
[2019-07-13] MEDS ORDERED: MVI, ADULT NO.1 WITH VIT K INJ 10 ML VIAL IV ONE ×2 (19:51→21:15)
[2019-07-13] MEDS ORDERED: PYRIDOXINE HCL INJ 100 MG/1 ML VIAL IM ONE (19:54)
[2019-07-13] MEDS ORDERED: CYANOCOBALAMIN (VITAMIN B-12) INJ 1000 MCG/1 ML VIAL IM ONE (19:54)
[2019-07-13] MEDS ORDERED: FOLIC ACID INJ 5 MG/1 ML 10 ML VIAL IV ONE (20:30)
[2019-07-13] MEDS: MORPHINE SULFATE 10 MG/ML INJ IV PRN (20:52)
[2019-07-13] MEDS ORDERED: PYRIDOXINE HCL INJ 100 MG/1 ML VIAL ONE (21:28)
[2019-07-13] MEDS: DIAZEPAM INJ 10 MG/2 ML DISP.SYRIN IV PRN (22:35)
[2019-07-13] MEDS: HEPARIN SOD (PORCINE) 5,000 UNIT/ML 1 ML VIAL SUBCUT SCH (22:51)
[2019-07-13] MEDS ORDERED: INFLUENZA QUAD (6MOS+) 2019-20 VAC 0.5 ML SYR IM ONE (23:50)
[2019-07-14] MEDS: MORPHINE SULFATE 10 MG/ML INJ IV PRN ×4 (00:07→07:42)
[2019-07-14] MEDS: DIAZEPAM INJ 10 MG/2 ML DISP.SYRIN IV PRN ×5 (02:52→21:59)
[2019-07-14] MEDS: HEPARIN SOD (PORCINE) 5,000 UNIT/ML 1 ML VIAL SUBCUT SCH ×3 (05:01→22:08)
[2019-07-14 05:40] LABS: ABSOLUTE EOSINOPHILS # (AUTO) 0.1 10^3/uL (0.0-0.6); ABSOLUTE LYMPHOCYTES (AUTO) 1.4 10^3/uL (0.5-4.7); ABSOLUTE MONOCYTES (AUTO) 0.5 10^3/uL (0.1-1.4); ABSOLUTE NEUT (AUTO) 10.7 10^3/uL (1.7-8.2); ABSOLUTE RETICS # 0.106 10^6/uL (0.028-0.122); BASOPHILS % (AUTO) 0.1 % (0-2); EOSINOPHILS % (AUTO) 0.4 % (0-6); HEMATOCRIT 32.4 % (37.9-51.0); LYMPHOCYTES % (AUTO) 11.4 % (13-45); MEAN CORPUSCULAR HEMOGLOBIN 38.5 pg (27.0-33.4); MEAN CORPUSCULAR HGB CONC 34.1 g/dL (32.0-36.0); MEAN CORPUSCULAR VOLUME 113 fl (80-97); MONOCYTES % (AUTO) 4.2 % (3-13); PLATELET COUNT 177 10^3/uL (150-450); RED BLOOD COUNT 2.87 10^6/uL (4.35-5.55); RED CELL DISTRIBUTION WIDTH 19.2 % (11.5-14.0); RETICULOCYTE COUNT (AUTO) 3.68 % (0.66-2.85); SEGMENTED NEUTROPHILS % (AUTO) 83.9 % (42-78); TOTAL CELLS COUNTED % (AUTO) 100 %; WHITE BLOOD COUNT 12.7 10^3/uL (4.0-10.5)
[2019-07-14 05:48] LABS: ANION GAP 7 (5-19); BLOOD UREA NITROGEN 15 mg/dL (7-20); CARBON DIOXIDE 27 mmol/L (22-30); CHLORIDE 101 mmol/L (98-107); CHOLESTEROL 120.53 mg/dL (0-200); GLUCOSE 103 mg/dL (75-110); INTERNATIONAL RATION (INR) 1.12; IRON(TIBC) 29.7 ug/dL (49-181); POTASSIUM 3.8 mmol/L (3.6-5.0); PROTHROMBIN TIME 14.5 SEC (11.4-15.4); TRIGLYCERIDES 116 mg/dL (<150)
[2019-07-14 05:49] LABS: PARTIAL THROMBOPLASTIN TIME 28.5 SEC (23.5-35.8)
[2019-07-14 05:59] LABS: DIRECT LDL 57 mg/dL (<100)
[2019-07-14 06:01] LABS: CALCIUM 6.6 mg/dL (8.4-10.2)
[2019-07-14 06:44] LABS: ANISOCYTOSIS 2+
[2019-07-14 06:45] LABS: PLATELET COMMENT ADEQUATE; STOMATOCYTES 2+
[2019-07-14 06:57] LABS: FOLATE > 20.00 ng/mL (>2.76)
[2019-07-14] MEDS ORDERED: RINGERS SOLUTION,LACTATED 1,000 ML IV PRN (09:56)
[2019-07-14] MEDS ORDERED: PANTOPRAZOLE SODIUM 40 MG VIAL IV SCH (10:00)
--- NOTE | 2019-07-14 10:21 | PDOC PROGRESS REPORT ---
Subjective Progress Note for:: 07/14/19 Subjective:: The patient is still having a significant amount of pain. He still looks quite miserable. His abdomen still hurts quite a bit and is extremely tender. Reason For Visit: ACUTE PANCREATITIS HEPATOMEGALY ABDOMINAL PAIN Physical Exam Vital Signs: Temp Pulse Resp BP Pulse Ox 98.5 F 101 H 16 142/81 H 98 07/14/19 08:02 07/14/19 08:02 07/14/19 08:02 07/14/19 08:02 07/14/19 08:02 Intake & Output 07/13/19 07/14/19 07/15/19 06:59 06:59 06:59 Intake Total 4150 Output Total 150 Balance 4000 Weight 99.3 kg 74.5 kg General appearance: PRESENT: cooperative, severe distress - Moderate to severe distress, well-developed Head exam: PRESENT: atraumatic, normocephalic Respiratory exam: PRESENT: clear to auscultation cheri, symmetrical, unlabored, other - Significant epigastric pain with deep breathing. ABSENT: rales, rhonchi, tachypnea, wheezes Cardiovascular exam: PRESENT: RRR, +S1, +S2. ABSENT: diastolic murmur, systolic murmur GI/Abdominal exam: PRESENT: diminished bowel sounds, distended, firm, soft, tenderness - Extremely painful over the abdomen globally Rectal exam: PRESENT: deferred Neurological exam: PRESENT: alert, awake, oriented to person, oriented to place, oriented to time, oriented to situation, CN II-XII grossly intact. ABSENT: altered Psychiatric exam: PRESENT: appropriate affect - Affect reflects his pain Results Laboratory Results: 07/14/19 05:11 07/14/19 05:11 07/14/19 07/14/19 05:11 05:11 WBC 12.7 H RBC 2.87 L Hgb 11.0 L Hct 32.4 L MCV 113 H MCH 38.5 H MCHC 34.1 RDW 19.2 H Plt Count 177 Seg Neutrophils % 83.9 H Retic Count (auto) 3.68 H Sodium 134.9 L Potassium 3.8 Chloride 101 Carbon Dioxide 27 Anion Gap 7 BUN 15 Creatinine 0.95 Est GFR ( Amer) > 60 Glucose 103 Calcium 6.6 L* Magnesium 1.4 L Iron 29.7 L TIBC 250 % Saturation 12 Ferritin 628.00 H Triglycerides 116 Cholesterol 120.53 LDL Cholesterol Direct 57 VLDL Cholesterol 23.0 HDL Cholesterol 35 L Lipase 2967.8 H Vitamin B12 > 1000.0 H Folate > 20.00 Impressions: Acute Abdomen Series 07/13/19 07:18 IMPRESSION: NO RADIOGRAPHIC EVIDENCE FOR ACUTE ABDOMINAL DISEASE. Abdomen Ultrasound 07/13/19 08:37 IMPRESSION: Distended gallbladder without stones. Positive sonographic Ohara's sign. Abdomen/Pelvis CT 07/13/19 10:55 IMPRESSION: 1. Diffuse enlargement of the pancreas without evidence of pancreatic necrosis. Findings are consistent with acute pancreatitis. 2. Moderate amount of ascites in the abdomen and pelvis. No focal drainable abscess. 3. Hepatomegaly with moderate hepatic steatosis. Assessment and Plan - Diagnosis (1) Pancreatitis Qualifiers: Chronicity: acute Pancreatitis type: unspecified pancreatitis type Acute pancreatitis complication: unspecified Qualified Code(s): K85.90 - Acute pancreatitis without necrosis or infection, unspecified Is this a current diagnosis for this admission?: Yes (2) Ascites Qualifiers: Ascites type: due to alcoholic hepatitis Qualified Code(s): K70.11 - Alcoholic hepatitis with ascites Is this a current diagnosis for this admission?: Yes (3) Acute abdominal pain Is this a current diagnosis for this admission?: Yes (4) Hepatomegaly Is this a current diagnosis for this admission?: Yes (5) Alcoholic hepatitis with ascites Is this a current diagnosis for this admission?: Yes (6) Alcohol dependency Qualifiers: Substance use status: uncomplicated Qualified Code(s): F10.20 - Alcohol dependence, uncomplicated Is this a current diagnosis for this admission?: Yes (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 He will get aggressive IV fluids. We will continue to monitor the serum chemistries. Pancreatitis secondary to alcoholism Abdominal pain and ascites secondary to pancreatitis and possible alcohol related hepatitis-analgesia and supportive care. Consider Aldactone after further evaluation. Alcohol-related hepatitis with hepatomegaly and ascites-the patient was warned about worsening complications from ongoing alcoholism. In view of potential withdrawal IV benzodiazepine therapy is available. Alcohol and nicotine dependency-I have prescribed a nicotine patch as needed. When the patient is feeling better I will discuss potential detox plans. Megaloblastic anemia-the patient was mildly anemic but his MCV was 111. This is likely related to his alcohol abuse. I have ordered anemia studies and the patient will likely benefit from folic acid and B12. I have asked nursing to monitor intake and output. In addition to the IV benzodiazepine therapy, IV analgesia will be available. The patient will be n.p.o. He will get aggressive IV fluids. This will include a banana bag. We will check laboratory studies daily and continue ongoing evaluation of the patient. 07/14/2019 The patient is still having a significant amount of pain. His lipase did come down by almost half. His white blood cell count went up slightly. I discussed the case with Dr. Martin. We are going to add antibiotic therapy. He lost his IV access and unfortunately he had not gotten as much IV fluid as high as ordered. I spoke to the nurse and she is going to correct this. His urine was dark and he clearly needed the fluid. The patient exhibited hypocalcemia and hypomagnesemia. I did order a ionized calcium and this was low as well. He did receive 2 g of calcium gluconate and IV magnesium sulfate. I will recheck his numbers and monitor them daily. While he is n.p.o. I will supplement by intravenous. He is still having significant pain. I did increase the narcotic analgesia for him. His anemia is stable. - Time Time Spent with patient: 15-24 minutes Medications reviewed and adjusted accordingly: Yes Anticipated discharge: Home
[2019-07-14] MEDS: CALCIUM GLUC IN NACL, ISO-OSM 1 GM/50 ML RTUPB IV SCH ×2 (10:33→12:41)
[2019-07-14] MEDS: RINGERS SOLUTION,LACTATED 1,000 ML IV PRN ×2 (10:33→22:00)
[2019-07-14] MEDS: HYDROMORPHONE HCL INJ/PF 2 MG/ML AMPULE IV PRN ×4 (10:49→23:08)
[2019-07-14 10:54] LABS: ALBUMIN 2.5 g/dL (3.5-5.0); ALKALINE PHOSPHATASE 123 U/L (38-126); ASPARTATE AMINO TRANSFERASE 74 U/L (17-59); BILIRUBIN,DIRECT 0.7 mg/dL (0.0-0.4); BILIRUBIN,TOTAL 1.7 mg/dL (0.2-1.3)
[2019-07-14] MEDS: MAGNESIUM SULFATE/D5W 1 GM/100 ML RTUPB IV SCH ×2 (11:39→13:48)
[2019-07-14] MEDS: MEROPENEM 1 GM in NORMAL SALINE 50 ML IV SCH ×2 (14:52→21:59)
--- NOTE | 2019-07-14 14:58 | PDOC PROGRESS REPORT ---
Subjective Progress Note for:: 07/14/19 Reason For Visit: ACUTE PANCREATITIS HEPATOMEGALY ABDOMINAL PAIN Patient seen early this morning. He was writhing in abdominal pain. Getting up moving around. He is strictly n.p.o. Urine output diminished, dark Physical Exam Vital Signs: Temp Pulse Resp BP Pulse Ox 98.7 F 111 H 16 123/66 95 07/14/19 11:22 07/14/19 11:22 07/14/19 11:22 07/14/19 11:22 07/14/19 11:22 Intake & Output 07/13/19 07/14/19 07/15/19 06:59 06:59 06:59 Intake Total 4150 200 Output Total 150 Balance 4000 200 Weight 99.3 kg 74.5 kg General appearance: PRESENT: other - Moderate distress GI/Abdominal exam: PRESENT: other - Abdomen exposed; more distention, more edema more peritoneal fluid compared to yesterday; diffusely tender Results Laboratory Results: 07/14/19 05:11 07/14/19 05:11 07/14/19 07/14/19 07/14/19 05:11 05:11 05:11 WBC 12.7 H RBC 2.87 L Hgb 11.0 L Hct 32.4 L MCV 113 H MCH 38.5 H MCHC 34.1 RDW 19.2 H Plt Count 177 Seg Neutrophils % 83.9 H Retic Count (auto) 3.68 H Sodium 134.9 L Potassium 3.8 Chloride 101 Carbon Dioxide 27 Anion Gap 7 BUN 15 Creatinine 0.95 Est GFR ( Amer) > 60 Glucose 103 Calcium 6.6 L* Magnesium 1.4 L Iron 29.7 L TIBC 250 % Saturation 12 Ferritin 628.00 H Total Bilirubin 1.7 H AST 74 H Alkaline Phosphatase 123 Total Protein 5.0 L Albumin 2.5 L Triglycerides 116 Cholesterol 120.53 LDL Cholesterol Direct 57 VLDL Cholesterol 23.0 HDL Cholesterol 35 L Lipase 2967.8 H Vitamin B12 > 1000.0 H Folate > 20.00 Impressions: Acute Abdomen Series 07/13/19 07:18 IMPRESSION: NO RADIOGRAPHIC EVIDENCE FOR ACUTE ABDOMINAL DISEASE. Abdomen Ultrasound 07/13/19 08:37 IMPRESSION: Distended gallbladder without stones. Positive sonographic Ohara's sign. Abdomen/Pelvis CT 07/13/19 10:55 IMPRESSION: 1. Diffuse enlargement of the pancreas without evidence of pancreatic necrosis. Findings are consistent with acute pancreatitis. 2. Moderate amount of ascites in the abdomen and pelvis. No focal drainable abscess. 3. Hepatomegaly with moderate hepatic steatosis. Assessment & Plan - Diagnosis (1) Acute abdominal pain Is this a current diagnosis for this admission?: Yes (2) Pancreatitis Qualifiers: Chronicity: acute Pancreatitis type: unspecified pancreatitis type Acute pancreatitis complication: unspecified Qualified Code(s): K85.90 - Acute pancreatitis without necrosis or infection, unspecified Is this a current diagnosis for this admission?: Yes Plan: Impression: Acute, moderate to severe first episode pancreatitis, alcohol induced. Despite n.p.o., IV fluids pain medication, patient's clinical symptoms and laboratory profile insignificantly different. Abdomen more distended consistent with third spacing of fluid shifts intraperitoneally Recommendations: 1. Discussed my assessment with patient, significant other, and Dr. Serrano; Patient is third spacing, with more fluid shifting into the intraperitoneal cavity, with relative intravascular depletion. Patient needs more IV fluids. I would also start empiric antibiotic therapy. 2. Explained to patient and staff that patient is at high risk for clinical deterioration. No indication for surgical intervention, but aggressive fluid support. Patient may third space into pleural cavities, resulting in respiratory decompensation. 3. We will sign off from a surgical standpoint; please reconsult if clinically indicated. (3) Smoker Is this a current diagnosis for this admission?: Yes (4) Alcohol abuse Is this a current diagnosis for this admission?: Yes - Time Time Spent: 30 to 50 Minutes Critical Time spent with patient: Less than 15 minutes
[2019-07-14] MEDS: NORMAL SALINE 1000 ML 1,000 ML with POTASSIUM CHLORIDE 20 MEQ, MAGNESIUM SULFATE 8 MEQ,... IV SCH ×5 (17:01)
[2019-07-14 17:06] LABS: BLOOD UREA NITROGEN 14 mg/dL (7-20); CALCIUM 7.3 mg/dL (8.4-10.2); CHLORIDE 100 mmol/L (98-107); GLUCOSE 104 mg/dL (75-110); POTASSIUM 4.1 mmol/L (3.6-5.0)
[2019-07-14 17:11] LABS: CARBON DIOXIDE 29 mmol/L (22-30)
[2019-07-14 17:22] LABS: ANION GAP 4 (5-19)
[2019-07-14] MEDS: PANTOPRAZOLE SODIUM 40 MG VIAL IV SCH (22:00)
[2019-07-15] MEDS: DIAZEPAM INJ 10 MG/2 ML DISP.SYRIN IV PRN ×6 (01:04→21:59)
[2019-07-15] MEDS: HYDROMORPHONE HCL INJ/PF 2 MG/ML AMPULE IV PRN ×6 (03:03→23:57)
[2019-07-15] MEDS: RINGERS SOLUTION,LACTATED 1,000 ML IV PRN ×3 (05:05→17:20)
[2019-07-15] MEDS: MEROPENEM 1 GM in NORMAL SALINE 50 ML IV SCH ×3 (05:30→21:59)
[2019-07-15 06:24] LABS: ABSOLUTE EOSINOPHILS # (AUTO) 0.1 10^3/uL (0.0-0.6); ABSOLUTE MONOCYTES (AUTO) 0.6 10^3/uL (0.1-1.4); ABSOLUTE NEUT (AUTO) 10.2 10^3/uL (1.7-8.2); BASOPHILS % (AUTO) 0.3 % (0-2); EOSINOPHILS % (AUTO) 1.1 % (0-6); HEMATOCRIT 27.2 % (37.9-51.0); HEMOGLOBIN 9.4 g/dL (13.5-17.0); LYMPHOCYTES % (AUTO) 8.3 % (13-45); MEAN CORPUSCULAR HEMOGLOBIN 39.2 pg (27.0-33.4); MEAN CORPUSCULAR HGB CONC 34.4 g/dL (32.0-36.0); MEAN CORPUSCULAR VOLUME 114 fl (80-97); MONOCYTES % (AUTO) 4.8 % (3-13); PLATELET COUNT 135 10^3/uL (150-450); RED BLOOD COUNT 2.39 10^6/uL (4.35-5.55); RED CELL DISTRIBUTION WIDTH 18.2 % (11.5-14.0); SEGMENTED NEUTROPHILS % (AUTO) 85.5 % (42-78); TOTAL CELLS COUNTED % (AUTO) 100 %; WHITE BLOOD COUNT 11.9 10^3/uL (4.0-10.5)
[2019-07-15] MEDS: HEPARIN SOD (PORCINE) 5,000 UNIT/ML 1 ML VIAL SUBCUT SCH ×2 (06:24→13:36)
[2019-07-15 06:39] LABS: ALBUMIN 2.3 g/dL (3.5-5.0); ALKALINE PHOSPHATASE 112 U/L (38-126); ASPARTATE AMINO TRANSFERASE 60 U/L (17-59); BILIRUBIN,DIRECT 0.3 mg/dL (0.0-0.4); BILIRUBIN,TOTAL 1.3 mg/dL (0.2-1.3); BLOOD UREA NITROGEN 9 mg/dL (7-20); CALCIUM 7.5 mg/dL (8.4-10.2); CARBON DIOXIDE 25 mmol/L (22-30); CHLORIDE 102 mmol/L (98-107); GLUCOSE 91 mg/dL (75-110); POTASSIUM 4.1 mmol/L (3.6-5.0); TOTAL PROTEIN 4.7 g/dL (6.3-8.2)
[2019-07-15 06:44] LABS: ANISOCYTOSIS 1+; PLATELET COMMENT DECREASED
[2019-07-15 08:00] LABS: ANION GAP 4 (5-19)
[2019-07-15] MEDS: PANTOPRAZOLE SODIUM 40 MG VIAL IV SCH ×2 (09:38→21:59)
--- NOTE | 2019-07-15 11:47 | PDOC PROGRESS REPORT ---
Subjective Progress Note for:: 07/15/19 Subjective:: Patient is still having a lot of pain. His abdomen feels more tense. His platelets are decreasing as is his albumin. Some of this is delusional. He does not feel much better. Patient is reporting pain under the costal margins and near both inguinal areas. Reason For Visit: ACUTE PANCREATITIS HEPATOMEGALY ABDOMINAL PAIN Physical Exam Vital Signs: Temp Pulse Resp BP Pulse Ox 98.3 F 123 H 16 137/69 H 89 L 07/15/19 07:21 07/15/19 07:21 07/15/19 07:21 07/15/19 07:21 07/15/19 07:21 Intake & Output 07/14/19 07/15/19 07/16/19 06:59 06:59 06:59 Intake Total 4150 3456 Output Total 150 760 Balance 4000 2696 Weight 74.5 kg 74.6 kg General appearance: PRESENT: cooperative, well-developed, other - Moderate to severe distress Head exam: PRESENT: atraumatic, normocephalic Ear exam: PRESENT: normal external ear exam. ABSENT: bleeding, drainage Mouth exam: PRESENT: moist, tongue midline Respiratory exam: PRESENT: clear to auscultation cheri, symmetrical, unlabored, other - Painful with deep inspiration. ABSENT: rales, rhonchi, tachypnea, wheezes Cardiovascular exam: PRESENT: +S1, +S2, tachycardia GI/Abdominal exam: PRESENT: diminished bowel sounds, distended, firm, tenderness - Extremely tender mostly in the upper abdomen Rectal exam: PRESENT: deferred Gentrourinary exam: ABSENT: indwelling catheter Extremities exam: ABSENT: pedal edema Musculoskeletal exam: PRESENT: ambulatory, full ROM, normal inspection. ABSENT: deformity Neurological exam: PRESENT: alert, awake, oriented to person, oriented to place, oriented to time, oriented to situation, CN II-XII grossly intact. ABSENT: altered, motor sensory deficit Psychiatric exam: PRESENT: appropriate affect - Affect reflects his pain. ABSEN T: agitated, anxious Results Laboratory Results: 07/15/19 06:04 07/15/19 06:04 07/14/19 07/14/19 07/15/19 16:30 16:30 06:04 WBC 11.9 H RBC 2.39 L Hgb 9.4 L Hct 27.2 L MCV 114 H MCH 39.2 H MCHC 34.4 RDW 18.2 H Plt Count 135 L Seg Neutrophils % 85.5 H Sodium 133.1 L Potassium 4.1 Chloride 100 Carbon Dioxide 29 Anion Gap 4 L BUN 14 Creatinine 0.85 Est GFR ( Amer) > 60 Glucose 104 Calcium 7.3 L Ionized Calcium Shania 1.06 L Magnesium 2.4 H D Total Bilirubin AST Alkaline Phosphatase Total Protein Albumin Lipase 07/15/19 06:04 WBC RBC Hgb Hct MCV MCH MCHC RDW Plt Count Seg Neutrophils % Sodium 130.9 L Potassium 4.1 Chloride 102 Carbon Dioxide 25 Anion Gap 4 L BUN 9 Creatinine 0.62 Est GFR ( Amer) > 60 Glucose 91 Calcium 7.5 L Ionized Calcium Shania Magnesium 2.3 Total Bilirubin 1.3 AST 60 H Alkaline Phosphatase 112 Total Protein 4.7 L Albumin 2.3 L Lipase 1094.1 H Impressions: Acute Abdomen Series 07/13/19 07:18 IMPRESSION: NO RADIOGRAPHIC EVIDENCE FOR ACUTE ABDOMINAL DISEASE. Abdomen Ultrasound 07/13/19 08:37 IMPRESSION: Distended gallbladder without stones. Positive sonographic Ohara's sign. Abdomen/Pelvis CT 07/13/19 10:55 IMPRESSION: 1. Diffuse enlargement of the pancreas without evidence of pancreatic necrosis. Findings are consistent with acute pancreatitis. 2. Moderate amount of ascites in the abdomen and pelvis. No focal drainable abscess. 3. Hepatomegaly with moderate hepatic steatosis. Assessment and Plan - Diagnosis (1) Pancreatitis Qualifiers: Chronicity: acute Pancreatitis type: unspecified pancreatitis type Acute pancreatitis complication: unspecified Qualified Code(s): K85.90 - Acute sanches creatitis without necrosis or infection, unspecified Is this a current diagnosis for this admission?: Yes (2) Ascites Qualifiers: Ascites type: due to alcoholic hepatitis Qualified Code(s): K70.11 - Alcoholic hepatitis with ascites Is this a current diagnosis for this admission?: Yes (3) Acute abdominal pain Is this a current diagnosis for this admission?: Yes (4) Hepatomegaly Is this a current diagnosis for this admission?: Yes (5) Alcoholic hepatitis with ascites Is this a current diagnosis for this admission?: Yes (6) Alcohol dependency Qualifiers: Substance use status: uncomplicated Qualified Code(s): F10.20 - Alcohol dependence, uncomplicated Is this a current diagnosis for this admission?: Yes (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 He will get aggressive IV fluids. We will continue to monitor the serum chemistries. Pancreatitis secon monet to alcoholism Abdominal pain and ascites secondary to pancreatitis and possible alcohol related hepatitis-analgesia and supportive care. Consider Aldactone after further evaluation. Alcohol-related hepatitis with hepatomegaly and ascites-the patient was warned about worsening complications from ongoing alcoholism. In view of potential withdrawal IV benzodiazepine therapy is available. Alcohol and nicotine dependency-I have prescribed a nicotine patch as needed. When the patient is feeling better I will discuss potential detox plans. Megaloblastic anemia-the patient was mildly anemic but his MCV was 111. This is likely related to his alcohol abuse. I have ordered anemia studies and the patient will likely benefit from folic acid and B12. I have asked nursing to monitor intake and output. In addition to the IV benzodiazepine therapy, IV analgesia will be available. The patient will be n.p.o. He will get aggressive IV fluids. This will include a banana bag. We will check laboratory studies daily and continue ongoing evaluation of the patient. 07/14/2019 The patient is still having a significant amount of pain. His lipase did come down by almost half. His white blood cell count went up slightly. I discussed the case with Dr. Martin. We are going to add antibiotic therapy. He lost his IV access and unfortunately he had not gotten as much IV fluid as high as ordered. I spoke to the nurse and she is going to correct this. His urine was dark and he clearly needed the fluid. The patient exhibited hypocalcemia and hypomagnesemia. I did order a ionized calcium and this was low as well. He did receive 2 g of calcium gluconate and IV magnesium sulfate. I will recheck his numbers and monitor them daily. While he is n.p.o. I will supplement by intravenous. He is still having significant pain. I did increase the narcotic analgesia for him. His anemia is stable. 07/15/2019 The patient still has significant abdominal pain. His abdomen is still tense. I did discuss with surgery his seeming lack of progress. I have added albumin infusions to try and improve oncotic pressure. His albumin has dropped below 2.0. Unfortunately he still requires large volume fluids to treat the pancreatitis. He is still strictly n.p.o. I have increased the pain regimen again. Because of thrombocytopenia I stopped the heparin. Surgery will continue to follow the patient. The concern is for developing complications. He remains on antibiotic therapy as well. We will continue to monitor his laboratory studies on a daily basis. - Time Time Spent with patient: Less than 15 minutes Medications reviewed and adjusted accordingly: Yes Anticipated discharge: Home
[2019-07-15] MEDS: ALBUMIN HUMAN 12.5 GM/50 ML RTUINJ IV SCH ×2 (12:39→13:53)
[2019-07-15] MEDS: NICOTINE 21 MG/24 HR PATCH.TD24 TD PRN (14:07)
[2019-07-15 14:37] LABS: PATH REVIEW PATHOLOGIST REVIEWED
[2019-07-15] MEDS: NORMAL SALINE 1000 ML 1,000 ML with POTASSIUM CHLORIDE 20 MEQ, MAGNESIUM SULFATE 8 MEQ,... IV SCH ×5 (17:14)
[2019-07-15] MEDS: KETOROLAC TROMETHAMINE INJ/PF 30 MG/1 ML SDV IV PRN (19:38)
[2019-07-16] MEDS: HYDROMORPHONE HCL INJ/PF 2 MG/ML AMPULE IV PRN ×4 (04:45→16:14)
[2019-07-16] MEDS: MEROPENEM 1 GM in NORMAL SALINE 50 ML IV SCH ×3 (05:34→21:03)
[2019-07-16 05:45] LABS: ABSOLUTE EOSINOPHILS # (AUTO) 0.2 10^3/uL (0.0-0.6); ABSOLUTE LYMPHOCYTES (AUTO) 0.8 10^3/uL (0.5-4.7); ABSOLUTE MONOCYTES (AUTO) 0.8 10^3/uL (0.1-1.4); ABSOLUTE NEUT (AUTO) 10.1 10^3/uL (1.7-8.2); BASOPHILS % (AUTO) 0.2 % (0-2); EOSINOPHILS % (AUTO) 1.9 % (0-6); HEMATOCRIT 26.3 % (37.9-51.0); HEMOGLOBIN 9.1 g/dL (13.5-17.0); LYMPHOCYTES % (AUTO) 6.5 % (13-45); MEAN CORPUSCULAR HEMOGLOBIN 39.6 pg (27.0-33.4); MEAN CORPUSCULAR HGB CONC 34.4 g/dL (32.0-36.0); MEAN CORPUSCULAR VOLUME 115 fl (80-97); MONOCYTES % (AUTO) 6.4 % (3-13); PLATELET COUNT 148 10^3/uL (150-450); RED BLOOD COUNT 2.29 10^6/uL (4.35-5.55); RED CELL DISTRIBUTION WIDTH 16.9 % (11.5-14.0); TOTAL CELLS COUNTED % (AUTO) 100 %; WHITE BLOOD COUNT 11.9 10^3/uL (4.0-10.5)
[2019-07-16 06:04] LABS: ALBUMIN 2.6 g/dL (3.5-5.0); ALKALINE PHOSPHATASE 122 U/L (38-126); ANION GAP 5 (5-19); ASPARTATE AMINO TRANSFERASE 59 U/L (17-59); BILIRUBIN,DIRECT 0.4 mg/dL (0.0-0.4); BILIRUBIN,TOTAL 1.1 mg/dL (0.2-1.3); BLOOD UREA NITROGEN 7 mg/dL (7-20); CARBON DIOXIDE 25 mmol/L (22-30); CHLORIDE 103 mmol/L (98-107); GLUCOSE 78 mg/dL (75-110); POTASSIUM 3.9 mmol/L (3.6-5.0); TOTAL PROTEIN 4.9 g/dL (6.3-8.2)
[2019-07-16 06:23] LABS: TOXIC GRANULATION 1+
[2019-07-16 06:24] LABS: ANISOCYTOSIS 1+; PLATELET COMMENT ADEQUATE; POIKILOCYTOSIS 2+; STOMATOCYTES 2+
[2019-07-16] MEDS: KETOROLAC TROMETHAMINE INJ/PF 30 MG/1 ML SDV IV PRN ×3 (08:26→20:54)
[2019-07-16] MEDS: DIAZEPAM INJ 10 MG/2 ML DISP.SYRIN IV PRN (08:29)
[2019-07-16] MEDS: RINGERS SOLUTION,LACTATED 1,000 ML IV PRN (08:35)
--- NOTE | 2019-07-16 09:18 | PDOC PROGRESS REPORT ---
Subjective Progress Note for:: 07/16/19 Subjective:: fells better this am than yesterday though still with pains. Denies nausea,Has flatus Reason For Visit: ACUTE PANCREATITIS HEPATOMEGALY ABDOMINAL PAIN Physical Exam Vital Signs: Temp Pulse Resp BP Pulse Ox 98.1 F 73 18 148/82 H 97 07/16/19 04:00 07/16/19 04:00 07/16/19 04:00 07/16/19 04:00 07/16/19 04:00 Intake & Output 07/15/19 07/16/19 07/17/19 06:59 06:59 06:59 Intake Total 3456 4190 Output Total 760 1325 Balance 2696 2865 Weight 74.6 kg 74.7 kg Exam: abdomen is quite soft with tenderness LUQ Results Laboratory Results: 07/16/19 05:21 07/16/19 05:21 07/16/19 07/16/19 05:21 05:21 WBC 11.9 H RBC 2.29 L Hgb 9.1 L Hct 26.3 L MCV 115 H MCH 39.6 H MCHC 34.4 RDW 16.9 H Plt Count 148 L Seg Neutrophils % 85.0 H Sodium 132.9 L Potassium 3.9 Chloride 103 Carbon Dioxide 25 Anion Gap 5 BUN 7 Creatinine 0.64 Est GFR ( Amer) > 60 Glucose 78 Calcium 8.0 L Magnesium 2.3 Total Bilirubin 1.1 AST 59 Alkaline Phosphatase 122 Total Protein 4.9 L Albumin 2.6 L Lipase 460.5 H Impressions: Acute Abdomen Series 07/13/19 07:18 IMPRESSION: NO RADIOGRAPHIC EVIDENCE FOR ACUTE ABDOMINAL DISEASE. Abdomen Ultrasound 07/13/19 08:37 IMPRESSION: Distended gallbladder without stones. Positive sonographic Ohara's sign. Abdomen/Pelvis CT 07/13/19 10:55 IMPRESSION: 1. Diffuse enlargement of the pancreas without evidence of pancreatic necrosis. Findings are consistent with acute pancreatitis. 2. Moderate amount of ascites in the abdomen and pelvis. No focal drainable abscess. 3. Hepatomegaly with moderate hepatic steatosis. Assessment & Plan - Diagnosis (1) Acute abdominal pain Is this a current diagnosis for this admission?: Yes (2) Alcohol abuse Is this a current diagnosis for this admission?: Yes (3) Alcoholic hepatitis with ascites Is this a current diagnosis for this admission?: Yes (4) Pancreatitis Qualifiers: Chronicity: acute Pancreatitis type: unspecified pancreatitis type Acute pancreatitis complication: unspecified Qualified Code(s): K85.90 - Acute pancreatitis without necrosis or infection, unspecified Is this a current diagnosis for this admission?: Yes - Time Critical Time spent with patient: 15-24 minutes - Inpatient Certification Medical Necessity: Need Close Monitoring Due to Risk of Patient Decompensation, Need for Pain Control, Risk of Complication if Not Cared For in Hospital - Plan Summary Plan Summary: Pancreatitis appears to be resolving with decrease lipase almost normal OK to start clears and increase as tolerated We will sign off. Call for questions
[2019-07-16] MEDS: PANTOPRAZOLE SODIUM 40 MG VIAL IV SCH ×2 (09:53→21:03)
[2019-07-16] MEDS ORDERED: RINGERS SOLUTION,LACTATED 1,000 ML IV PRN (11:36)
[2019-07-16] MEDS ORDERED: HYDROMORPHONE HCL INJ/PF 2 MG/ML AMPULE IV PRN (11:36)
--- NOTE | 2019-07-16 17:19 | PDOC PROGRESS REPORT ---
Subjective Progress Note for:: 07/16/19 Subjective:: KACY DUMAS is a 28 year old male with no significant medical or surgical history presents to the emergency department with severe abdominal pain. The patient states that his stomach had been feeling upset yesterday but he was not having any significant pain. At approximately 3 AM he was awakened with abdominal pain. It was severe. It was associated with nausea and vomiting. He denied fever or chills. He denies hematemesis. He has never had anything like this before. He admits to drinking 3 of the 22 ounce cans of beer daily and smoking 1 to 1-1/2 packs of cigarettes daily. Evaluation revealed an elevated lipase of 4981.6. Alkaline phosphatase was sli ghtly elevated at 197. ALT was normal and AST was 102. Total bilirubin was normal. His potassium was low at 3.5. His white blood cell count was elevated at 11.9 and 81% neutrophils. Hemoglobin was 11.2, hematocrit 31.9 and his MCV was elevated at 111. Diagnostic imaging shows acute pancreatitis with hepatomegaly and ascites. Surgery has seen the patient. Will admit patient to the medical service. 07/16/2019. Patient complaining of persistent abdominal pain, 4/5 associated with abdominal distention and nausea. Also noted to be hypoxic today and desaturated when ambulating. Reason For Visit: ACUTE PANCREATITIS HEPATOMEGALY ABDOMINAL PAIN Physical Exam Vital Signs: Temp Pulse Resp BP Pulse Ox 97.9 F 126 H 20 121/71 93 07/16/19 11:48 07/16/19 11:48 07/16/19 11:48 07/16/19 11:48 07/16/19 11:48 Intake & Output 07/15/19 07/16/19 07/17/19 06:59 06:59 06:59 Intake Total 3456 4190 50 Output Total 760 1325 Balance 2696 2865 50 Weight 74.6 kg 74.7 kg General appearance: PRESENT: mild distress Head exam: PRESENT: atraumatic, normocephalic Respiratory exam: PRESENT: clear to auscultation cheri. ABSENT: rales, rhonchi, wheezes Cardiovascular exam: PRESENT: RRR. ABSENT: diastolic murmur, rubs, systolic murmur GI/Abdominal exam: PRESENT: ascites, firm, guarding, normal bowel sounds, tenderness. ABSENT: distended, mass, organolmegaly, rebound Results Laboratory Results: 07/16/19 05:21 07/16/19 05:21 07/16/19 07/16/19 05:21 05:21 WBC 11.9 H RBC 2.29 L Hgb 9.1 L Hct 26.3 L MCV 115 H MCH 39.6 H MCHC 34.4 RDW 16.9 H Plt Count 148 L Seg Neutrophils % 85.0 H Sodium 132.9 L Potassium 3.9 Chloride 103 Carbon Dioxide 25 Anion Gap 5 BUN 7 Creatinine 0.64 Est GFR ( Amer) > 60 Glucose 78 Calcium 8.0 L Magnesium 2.3 Total Bilirubin 1.1 AST 59 Alkaline Phosphatase 122 Total Protein 4.9 L Albumin 2.6 L Lipase 460.5 H Impressions: Acute Abdomen Series 07/13/19 07:18 IMPRESSION: NO RADIOGRAPHIC EVIDENCE FOR ACUTE ABDOMINAL DISEASE. Abdomen Ultrasound 07/13/19 08:37 IMPRESSION: Distended gallbladder without stones. Positive sonographic Ohara's sign. Abdomen/Pelvis CT 07/13/19 10:55 IMPRESSION: 1. Diffuse enlargement of the pancreas without evidence of pancreatic necrosis. Findings are consistent with acute pancreatitis. 2. Moderate amount of ascites in the abdomen and pelvis. No focal drainable abscess. 3. Hepatomegaly with moderate hepatic steatosis. Assessment and Plan - Diagnosis (1) Acute respiratory failure with hypoxia Is this a current diagnosis for this admission?: Yes Plan: Likely due to aggressive volume resuscitation for underlying alcoholic pancreatitis in the setting of severe ascites and alcoholic cirrhosis. Continue supplemental oxygen. Hold IV fluids. Follow-up chest x-ray. Paracentesis tomorrow by IR. If chest x-ray positive for fluid overload we will start on IV Lasix. (2) Pancreatitis Qualifiers: Chronicity: acute Pancreatitis type: unspecified pancreatitis type Acute pancreatitis complication: unspecified Qualified Code(s): K85.90 - Acute pancreatitis without necrosis or infection, unspecified Is this a current diagnosis for this admission?: Yes Plan: Mild improvement. Still complaining of persistent abdominal pain. P.o. intolerant. This most likely to EtOH abuse. 07/11/2019. CT abdomen and pelvis. Diffuse enlargement of the pancreas without evidence of pancreatic necrosis. Moderate amount of ascites in the abdomen pelvis. No focal drainable abscess. Hepatomegaly with moderate hepatic steatosis. Continue fluid resuscitation guided by volume status. Opioid and non-opioid analgesics. Antiemetics. Empiric IV antibiotics. Given hypoxia, ascites, and underlying possible cirrhosis will need to cut down on fluids and monitor vital status. (3) Alcoholic hepatitis with ascites Is this a current diagnosis for this admission?: Yes Plan: Patient denies having history of cirrhosis however abdominal CT is positive for hepatomegaly and hepatic steatosis and patient has history of alcohol abuse. Patient also noted to have megaloblastic anemia and thrombocytopenia with significant ascites on physical examination. Unfortunate patient has acute alcoholic pancreatitis and needs to be on IV fluids but due to worsening ascites and hypoxia will need to hold IV fluids and possibly start on IV Lasix and paracentesis. (4) Megaloblastic anemia due to alcoholism Is this a current diagnosis for this admission?: Yes Plan: Due to alcoholism. B12 and folic acid WNL. Continue supplements of B12 and folic acid. Monitor H&H. Supportive transfusions. (5) Tobacco dependency Is this a current diagnosis for this admission?: Yes Plan: Advised abstinence. Does not appear to be in withdrawal. Continue DT precautions. - Plan Summary Summary: 07/13/2019 Acute pancreatitis-the patient will be made n.p.o. He will get aggressive IV fluids. We will continue to monitor the serum chemistries. Pancreatitis secondary to alcoholism Abdominal pain and ascites secondary to pancreatitis and possible alcohol related hepatitis-analgesia and supportive care. Consider Aldactone after further evaluation. Alcohol-related hepatitis with hepatomegaly and ascites-the patient was warned about worsening complications from ongoing alcoholism. In view of potential withdrawal IV benzodiazepine therapy is available. Alcohol and nicotine dependency-I have prescribed a nicotine patch as needed. When the patient is feeling better I will discuss potential detox plans. Megaloblastic anemia-the patient was mildly anemic but his MCV was 111. This is likely related to his alcohol abuse. I have ordered anemia studies and the patient will likely benefit from folic acid and B12. I have asked nursing to monitor intake and output. In addition to the IV benzodiazepine therapy, IV analgesia will be available. The patient will be n.p.o. He will get aggressive IV fluids. This will include a banana bag. We will check laboratory studies daily and continue ongoing evaluation of the patient. 07/14/2019 The patient is still having a significant amount of pain. His lipase did come down by almost half. His white blood cell count went up slightly. I discussed the case with Dr. Martin. We are going to add antibiotic therapy. He lost his IV access and unfortunately he had not gotten as much IV fluid as high as ordered. I spoke to the nurse and she is going to correct this. His urine was dark and he clearly needed the fluid. The patient exhibited hypocalcemia and hypomagnesemia. I did order a ionized calcium and this was low as well. He did receive 2 g of calcium gluconate and IV magnesium sulfate. I will recheck his numbers and monitor them daily. While he is n.p.o. I will supplement by intravenous. He is still having significant pain. I did increase the narcotic analgesia for him. His anemia is stable. 07/15/2019 The patient still has significant abdominal pain. His abdomen is still tense. I did discuss with surgery his seeming lack of progress. I have added albumin infusions to try and improve oncotic pressure. His albumin has dropped below 2.0. Unfortunately he still requires large volume fluids to treat the pancreatitis. He is still strictly n.p.o. I have increased the pain regimen again. Because of thrombocytopenia I stopped the heparin. Surgery will continue to follow the patient. The concern is for developing complications. He remains on antibiotic therapy as well. We will continue to monitor his laboratory studies on a daily basis.
[2019-07-16] MEDS: ALBUMIN HUMAN 12.5 GM/50 ML RTUINJ IV SCH ×4 (18:34→21:00)
[2019-07-16] MEDS: OXYCODONE-ACETAMINOPHEN 5-325 MG TABLET PO PRN ×2 (19:30→23:42)
[2019-07-16] MEDS: NICOTINE 21 MG/24 HR PATCH.TD24 TD PRN (19:30)
--- NOTE | 2019-07-16 19:38 | RADIOLOGY REPORT (SQ) ---
EXAM DESCRIPTION: CHEST 2 VIEWS COMPLETED DATE/TIME: 07/16/2019 6:27 pm REASON FOR STUDY: low o2 sat COMPARISON: 01/31/2019 EXAM PARAMETERS: NUMBER OF VIEWS: two views TECHNIQUE: Digital Frontal and Lateral radiographic views of the chest acquired. RADIATION DOSE: NA LIMITATIONS: none FINDINGS: LUNGS AND PLEURA: Patchy opacification both lung bases, left more than right her we will l eft diaphragm is indistinct. MEDIASTINUM AND HILAR STRUCTURES: No masses or contour abnormalities. HEART AND VASCULAR STRUCTURES: Heart normal size. No evidence for failure. BONES: No acute findings. HARDWARE: None in the chest. OTHER: No other significant finding. IMPRESSION: Multicentric pneumonia in the left lower lobe more than the right middle lobe. Small ri ght pleural effusion. TECHNICAL DOCUMENTATION: JOB ID: [id number] 2010 [employer]- All Rights Reserved Reading location - IP/workstation name: [email or web address]
[2019-07-17] MEDS: KETOROLAC TROMETHAMINE INJ/PF 30 MG/1 ML SDV IV PRN ×4 (04:07→23:23)
[2019-07-17] MEDS: MEROPENEM 1 GM in NORMAL SALINE 50 ML IV SCH ×3 (05:15→21:52)
[2019-07-17] MEDS: OXYCODONE-ACETAMINOPHEN 5-325 MG TABLET PO PRN ×5 (06:14→23:22)
[2019-07-17 06:30] LABS: INTERNATIONAL RATION (INR) 1.08; PROTHROMBIN TIME 14.1 SEC (11.4-15.4)
[2019-07-17 06:33] LABS: ABSOLUTE EOSINOPHILS # (AUTO) 0.1 10^3/uL (0.0-0.6); ABSOLUTE LYMPHOCYTES (AUTO) 0.8 10^3/uL (0.5-4.7); ABSOLUTE MONOCYTES (AUTO) 0.9 10^3/uL (0.1-1.4); ABSOLUTE NEUT (AUTO) 10.4 10^3/uL (1.7-8.2); BASOPHILS % (AUTO) 0.2 % (0-2); EOSINOPHILS % (AUTO) 0.9 % (0-6); HEMATOCRIT 25.2 % (37.9-51.0); HEMOGLOBIN 8.6 g/dL (13.5-17.0); LYMPHOCYTES % (AUTO) 6.5 % (13-45); MEAN CORPUSCULAR HEMOGLOBIN 39.2 pg (27.0-33.4); MEAN CORPUSCULAR HGB CONC 34.2 g/dL (32.0-36.0); MEAN CORPUSCULAR VOLUME 114 fl (80-97); MONOCYTES % (AUTO) 7.7 % (3-13); PLATELET COUNT 188 10^3/uL (150-450); RED CELL DISTRIBUTION WIDTH 16.5 % (11.5-14.0); SEGMENTED NEUTROPHILS % (AUTO) 84.7 % (42-78); TOTAL CELLS COUNTED % (AUTO) 100 %; WHITE BLOOD COUNT 12.2 10^3/uL (4.0-10.5)
[2019-07-17 06:37] LABS: ALBUMIN 2.8 g/dL (3.5-5.0); ALKALINE PHOSPHATASE 145 U/L (38-126); ANION GAP 10 (5-19); ANISOCYTOSIS 1+; ASPARTATE AMINO TRANSFERASE 90 U/L (17-59); BILIRUBIN,DIRECT 0.5 mg/dL (0.0-0.4); BILIRUBIN,TOTAL 0.8 mg/dL (0.2-1.3); BLOOD UREA NITROGEN 6 mg/dL (7-20); CALCIUM 8.5 mg/dL (8.4-10.2); CARBON DIOXIDE 25 mmol/L (22-30); CHLORIDE 105 mmol/L (98-107); GLUCOSE 105 mg/dL (75-110); POTASSIUM 3.8 mmol/L (3.6-5.0); TOTAL PROTEIN 5.4 g/dL (6.3-8.2)
[2019-07-17 06:39] LABS: PLATELET COMMENT ADEQUATE
[2019-07-17 06:41] LABS: STOMATOCYTES 1+
[2019-07-17] MEDS: PANTOPRAZOLE SODIUM 40 MG VIAL IV SCH ×2 (10:23→21:57)
[2019-07-17] MEDS: ALBUMIN HUMAN 12.5 GM/50 ML RTUINJ IV SCH ×4 (11:27→15:00)
--- NOTE | 2019-07-17 14:02 | PDOC PROGRESS REPORT ---
Subjective Progress Note for:: 07/17/19 Subjective:: KACY DUMAS is a 28 year old male with no significant medical or surgical history presents to the emergency department with severe abdominal pain. The patient states that his stomach had been feeling upset yesterday but he was not having any significant pain. At approximately 3 AM he was awakened with abdominal pain. It was severe. It was associated with nausea and vomiting. He denied fever or chills. He denies hematemesis. He has never had anything like this before. He admits to drinking 3 of the 22 ounce cans of beer daily and smoking 1 to 1-1/2 packs of cigarettes daily. Evaluation revealed an elevated lipase of 4981.6. Alkaline phosphatase was sli ghtly elevated at 197. ALT was normal and AST was 102. Total bilirubin was normal. His potassium was low at 3.5. His white blood cell count was elevated at 11.9 and 81% neutrophils. Hemoglobin was 11.2, hematocrit 31.9 and his MCV was elevated at 111. Diagnostic imaging shows acute pancreatitis with hepatomegaly and ascites. Surgery has seen the patient. Will admit patient to the medical service. 07/16/2019. Patient complaining of persistent abdominal pain, 4/5 associated with abdominal distention and nausea. Also noted to be hypoxic today and desaturated when ambulating. 07/17/2019. No acute events overnight. Patient endorsing some improvement of abdominal pain, 3 out of 5. Able to tolerate clear liquid. Denies any fever, chills, nausea, vomiting, diarrhea, constipation or any urinary symptoms. Reason For Visit: ACUTE PANCREATITIS HEPATOMEGALY ABDOMINAL PAIN Physical Exam Vital Signs: Temp Pulse Resp BP Pulse Ox 98.2 F 112 H 12 141/78 H 91 L 07/17/19 08:24 07/17/19 08:24 07/17/19 08:24 07/17/19 08:24 07/17/19 08:24 Intake & Output 07/16/19 07/17/19 07/18/19 06:59 06:59 06:59 Intake Total 4190 2226 100 Output Total 1325 1720 Balance 2865 506 100 Weight 74.7 kg 80.8 kg General appearance: PRESENT: no acute distress, well-developed, well-nourished Head exam: PRESENT: atraumatic, normocephalic Respiratory exam: PRESENT: clear to auscultation cheri. ABSENT: rales, rhonchi, wheezes Cardiovascular exam: PRESENT: RRR. ABSENT: diastolic murmur, rubs, systolic murmur Extremities exam: PRESENT: full ROM, +1 edema. ABSENT: calf tenderness, clubbing, pedal edema Neurological exam: PRESENT: alert, awake, oriented to person, oriented to place, oriented to time, oriented to situation, CN II-XII grossly intact. ABSENT: motor sensory deficit Results Laboratory Results: 07/17/19 05:12 07/17/19 05:12 07/17/19 07/17/19 05:12 05:12 WBC 12.2 H RBC 2.20 L Hgb 8.6 L Hct 25.2 L MCV 114 H MCH 39.2 H MCHC 34.2 RDW 16.5 H Plt Count 188 Seg Neutrophils % 84.7 H Sodium 140.0 Potassium 3.8 Chloride 105 Carbon Dioxide 25 Anion Gap 10 BUN 6 L Creatinine 0.63 Est GFR ( Amer) > 60 Glucose 105 Calcium 8.5 Total Bilirubin 0.8 AST 90 H Alkaline Phosphatase 145 H Total Protein 5.4 L Albumin 2.8 L Impressions: Acute Abdomen Series 07/13/19 07:18 IMPRESSION: NO RADIOGRAPHIC EVIDENCE FOR ACUTE ABDOMINAL DISEASE. Abdomen Ultrasound 07/13/19 08:37 IMPRESSION: Distended gallbladder without stones. Positive sonographic Ohara's sign. Abdomen/Pelvis CT 07/13/19 10:55 IMPRESSION: 1. Diffuse enlargement of the pancreas without evidence of pancreatic necrosis. Findings are consistent with acute pancreatitis. 2. Moderate amount of ascites in the abdomen and pelvis. No focal drainable abscess. 3. Hepatomegaly with moderate hepatic steatosis. Chest X-Ray 07/16/19 00:00 IMPRESSION: Multicentric pneumonia in the left lower lobe more than the right middle lobe. Small right pleural effusion. Assessment and Plan - Diagnosis (1) Acute respiratory failure with hypoxia Is this a current diagnosis for this admission?: Yes Plan: Mild improvement. SPO2 WNL on 2 to 3 L. Likely due to underlying pneumonia complicated by aggressive volume resuscitation for underlying alcoholic pancreatitis in the setting of severe ascites and alcoholic cirrhosis. Continue supplemental oxygen. Hold IV fluids. Follow-up chest x-ray. (2) Pancreatitis Qualifiers: Chronicity: acute Pancreatitis type: unspecified pancreatitis type Acute pancreatitis complication: unspecified Qualified Code(s): K85.90 - Acute pancreatitis without necrosis or infection, unspecified Is this a current diagnosis for this admission?: Yes Plan: Mild improvement. Still complaining of persistent abdominal pain. P.o. intolerant. This most likely to EtOH abuse. 07/11/2019. CT abdomen and pelvis. Diffuse enlargement of the pancreas without evidence of pancreatic necrosis. Moderate amount of ascites in the abdomen pelvis. No focal drainable abscess. Hepatomegaly with moderate hepatic steatosis. Continue fluid resuscitation guided by volume status. Opioid and non-opioid analgesics. Antiemetics. Empiric IV antibiotics. Given hypoxia, ascites, and underlying possible cirrhosis will need to cut down on fluids and monitor vital status. (3) Alcoholic hepatitis with ascites Is this a current diagnosis for this admission?: Yes Plan: Patient denies having history of cirrhosis however abdominal CT is positive for hepatomegaly and hepatic steatosis and patient has history of alcohol abuse. Patient also noted to have megaloblastic anemia and thrombocytopenia with significant ascites on physical examination. Unfortunate patient has acute alcoholic pancreatitis and needs to be on IV fluids but due to worsening ascites and hypoxia will need to hold IV fluids and possibly start on IV Lasix and paracentesis. (4) Megaloblastic anemia due to alcoholism Is this a current diagnosis for this admission?: Yes Plan: Due to alcoholism. B12 and folic acid WNL. Continue supplements of B12 and folic acid. Monitor H&H. Supportive transfusions. (5) Tobacco dependency Is this a current diagnosis for this admission?: Yes Plan: Advised abstinence. Does not appear to be in withdrawal. Continue DT precautions. (6) Multifocal pneumonia Is this a current diagnosis for this admission?: Yes Plan: Most likely community-acquired,gram-positives including Streptococcus pneumonia. Chest x-ray positive for multi centric pneumonia in the left lower lobe more than the right middle lobe. Afebrile. WBC trending down. Day 4 IV antibiotics. Day 4 IV meropenem. Day 1 p.o. azithromycin. Continue back IV antibiotics. Follow-up sputum and blood culture. - Plan Summary Summary: 07/13/2019 Acute pancreatitis-the patient will be made n.p.o. He will get aggressive IV fluids. We will continue to monitor the serum chemistries. Pancreatitis secondary to alcoholism Abdominal pain and ascites secondary to pancreatitis and possible alcohol related hepatitis-analgesia and supportive care. Consider Aldactone after fu rther evaluation. Alcohol-related hepatitis with hepatomegaly and ascites-the patient was warned about worsening complications from ongoing alcoholism. In view of potential withdrawal IV benzodiazepine therapy is available. Alcohol and nicotine dependency-I have prescribed a nicotine patch as needed. When the patient is feeling better I will discuss potential detox plans. Megaloblastic anemia-the patient was mildly anemic but his MCV was 111. This is likely related to his alcohol abuse. I have ordered anemia studies and the patient will likely benefit from folic acid and B12. I have asked nursing to monitor intake and output. In addition to the IV benzodiazepine therapy, IV analgesia will be available. The patient will be n.p.o. He will get aggressive IV fluids. This will include a banana bag. We will check laboratory studies daily and continue ongoing evaluation of the patient. 07/14/2019 The patient is still having a significant amount of pain. His lipase did come down by almost half. His white blood cell count went up slightly. I discussed the case with Dr. Martin. We are going to add antibiotic therapy. He lost his IV access and unfortunately he had not gotten as much IV fluid as high as ordered. I spoke to the nurse and she is going to correct this. His urine was dark and he clearly needed the fluid. The patient exhibited hypocalcemia and hypomagnesemia. I did order a ionized calcium and this was low as well. He did receive 2 g of calcium gluconate and IV magnesium sulfate. I will recheck his numbers and monitor them daily. While he is n.p.o. I will supplement by intravenous. He is still having significant pain. I did increase the narcotic analgesia for him. His anemia is stable. 07/15/2019 The patient still has significant abdominal pain. His abdomen is still tense. I did discuss with surgery his seeming lack of progress. I have added albumin infusions to try and improve oncotic pressure. His albumin has dropped below 2.0. Unfortunately he still requires large volume fluids to treat the pancreatitis. He is still strictly n.p.o. I have increased the pain regimen again. Because of thrombocytopenia I stopped the heparin. Surgery will continue to follow the patient. The concern is for developing complications. He remains on antibiotic therapy as well. We will continue to monitor his laboratory studies on a daily basis.
[2019-07-17] MEDS: NICOTINE 21 MG/24 HR PATCH.TD24 TD PRN (14:13)
[2019-07-17] MEDS ORDERED: PROMETHAZINE HCL INJ 25 MG/1 ML VIAL IV PRN (14:20)
[2019-07-17] MEDS: AZITHROMYCIN 250 MG TABLET PO SCH (16:36)
[2019-07-17] MEDS ORDERED: NORMAL SALINE 1000 ML 1,000 ML IV PRN (18:54)
[2019-07-18] MEDS: OXYCODONE-ACETAMINOPHEN 5-325 MG TABLET PO PRN ×5 (03:38→21:26)
[2019-07-18] MEDS: MEROPENEM 1 GM in NORMAL SALINE 50 ML IV SCH ×3 (05:54→21:29)
[2019-07-18] MEDS: KETOROLAC TROMETHAMINE INJ/PF 30 MG/1 ML SDV IV PRN ×3 (05:57→20:06)
[2019-07-18 07:08] LABS: HEMATOCRIT 23.9 % (37.9-51.0); HEMOGLOBIN 8.1 g/dL (13.5-17.0); MEAN CORPUSCULAR HEMOGLOBIN 38.4 pg (27.0-33.4); MEAN CORPUSCULAR HGB CONC 33.7 g/dL (32.0-36.0); MEAN CORPUSCULAR VOLUME 114 fl (80-97); PLATELET COUNT 235 10^3/uL (150-450); RED BLOOD COUNT 2.09 10^6/uL (4.35-5.55); RED CELL DISTRIBUTION WIDTH 17.2 % (11.5-14.0); WHITE BLOOD COUNT 11.8 10^3/uL (4.0-10.5)
[2019-07-18 07:28] LABS: ALKALINE PHOSPHATASE 125 U/L (38-126); ANION GAP 7 (5-19); ASPARTATE AMINO TRANSFERASE 70 U/L (17-59); BILIRUBIN,DIRECT 0.2 mg/dL (0.0-0.4); BILIRUBIN,TOTAL 0.7 mg/dL (0.2-1.3); BLOOD UREA NITROGEN 6 mg/dL (7-20); CALCIUM 8.6 mg/dL (8.4-10.2); CARBON DIOXIDE 29 mmol/L (22-30); CHLORIDE 106 mmol/L (98-107); GLUCOSE 89 mg/dL (75-110); POTASSIUM 3.9 mmol/L (3.6-5.0); TOTAL PROTEIN 5.4 g/dL (6.3-8.2)
[2019-07-18] MEDS: AZITHROMYCIN 250 MG TABLET PO SCH (09:15)
[2019-07-18] MEDS: PANTOPRAZOLE SODIUM 40 MG VIAL IV SCH ×2 (09:15→21:26)
[2019-07-18] MEDS: NICOTINE 21 MG/24 HR PATCH.TD24 TD PRN (10:03)
--- NOTE | 2019-07-18 13:12 | PDOC PROGRESS REPORT ---
Subjective Progress Note for:: 07/18/19 Subjective:: KACY DUMAS is a 28 year old male with no significant medical or surgical history presents to the emergency department with severe abdominal pain. The patient states that his stomach had been feeling upset yesterday but he was not having any significant pain. At approximately 3 AM he was awakened with abdominal pain. It was severe. It was associated with nausea and vomiting. He denied fever or chills. He denies hematemesis. He has never had anything like this before. He admits to drinking 3 of the 22 ounce cans of beer daily and smoking 1 to 1-1/2 packs of cigarettes daily. Evaluation revealed an elevated lipase of 4981.6. Alkaline phosphatase was sli ghtly elevated at 197. ALT was normal and AST was 102. Total bilirubin was normal. His potassium was low at 3.5. His white blood cell count was elevated at 11.9 and 81% neutrophils. Hemoglobin was 11.2, hematocrit 31.9 and his MCV was elevated at 111. Diagnostic imaging shows acute pancreatitis with hepatomegaly and ascites. Surgery has seen the patient. Will admit patient to the medical service. 07/16/2019. Patient complaining of persistent abdominal pain, 4/5 associated with abdominal distention and nausea. Also noted to be hypoxic today and desaturated when ambulating. 07/17/2019. No acute events overnight. Patient endorsing some improvement of abdominal pain, 3 out of 5. Able to tolerate clear liquid. Denies any fever, chills, nausea, vomiting, diarrhea, constipation or any urinary symptoms. 07/18/2019. No acute events overnight. Abdominal pain improving, stating that it is 2 out of 5, tolerating his p.o. feeds, bowel movement yesterday. Still complaining of persistent productive cough abdominal distention and shortness of breath. Any fever, chest pain, nausea, vomiting, diarrhea, constipation or any urinary symptoms. Reason For Visit: ACUTE PANCREATITIS HEPATOMEGALY ABDOMINAL PAIN Physical Exam Vital Signs: Temp Pulse Resp BP Pulse Ox 99.4 F 124 H 32 H 157/90 H 91 L 07/18/19 11:09 07/18/19 11:09 07/18/19 11:09 07/18/19 11:09 07/18/19 11:09 Intake & Output 07/17/19 07/18/19 07/19/19 06:59 06:59 06:59 Intake Total 2226 1941 50 Output Total 1720 950 Balance 506 991 50 Weight 80.8 kg 77.9 kg General appearance: PRESENT: no acute distress, well-developed, well-nourished Head exam: PRESENT: atraumatic, normocephalic Respiratory exam: PRESENT: crackles, decreased breath sounds. ABSENT: rales, rhonchi, wheezes Cardiovascular exam: PRESENT: RRR. ABSENT: diastolic murmur, rubs, systolic murmur GI/Abdominal exam: PRESENT: ascites, firm, hypoactive bowel sounds, soft, tenderness. ABSENT: distended, guarding, mass, organolmegaly, rebound Neurological exam: PRESENT: alert, awake, oriented to person, oriented to place, oriented to time, oriented to situation, CN II-XII grossly intact. ABSENT: motor sensory deficit Results Laboratory Results: 07/18/19 05:58 07/18/19 05:58 07/18/19 07/18/19 05:58 05:58 WBC 11.8 H RBC 2.09 L Hgb 8.1 L Hct 23.9 L MCV 114 H MCH 38.4 H MCHC 33.7 RDW 17.2 H Plt Count 235 Sodium 141.6 Potassium 3.9 Chloride 106 Carbon Dioxide 29 Anion Gap 7 BUN 6 L Creatinine 0.61 Est GFR ( Amer) > 60 Glucose 89 Calcium 8.6 Total Bilirubin 0.7 AST 70 H Alkaline Phosphatase 125 Total Protein 5.4 L Albumin 3.0 L Impressions: Acute Abdomen Series 07/13/19 07:18 IMPRESSION: NO RADIOGRAPHIC EVIDENCE FOR ACUTE ABDOMINAL DISEASE. Abdomen Ultrasound 07/13/19 08:37 IMPRESSION: Distended gallbladder without stones. Positive sonographic Ohara's sign. Abdomen/Pelvis CT 07/13/19 10:55 IMPRESSION: 1. Diffuse enlargement of the pancreas without evidence of pancreatic necrosis. Findings are consistent with acute pancreatitis. 2. Moderate amount of ascites in the abdomen and pelvis. No focal drainable abscess. 3. Hepatomegaly with moderate hepatic steatosis. Chest X-Ray 07/16/19 00:00 IMPRESSION: Multicentric pneumonia in the left lower lobe more than the right middle lobe. Small right pleural effusion. Assessment and Plan - Diagnosis (1) Multifocal pneumonia Is this a current diagnosis for this admission?: Yes Plan: Most likely community-acquired,gram-positives including Streptococcus pneumonia. Chest x-ray positive for multi centric pneumonia in the left lower lobe more than the right middle lobe. Afebrile. WBC trending down. Day 5 IV antibiotics. Day 5 IV meropenem. Day 2 p.o. azithromycin. Continue back IV antibiotics. Follow-up sputum and blood culture. (2) Acute respiratory failure with hypoxia Is this a current diagnosis for this admission?: Yes Plan: Mild improvement. SPO2 WNL on 2 to 3 L. Likely due to underlying pneumonia complicated by aggressive volume resuscitation for underlying alcoholic pancreatitis in the setting of severe asc ites and alcoholic cirrhosis. Continue supplemental oxygen. Hold IV fluids. Follow-up chest x-ray. (3) Pancreatitis Qualifiers: Chronicity: acute Pancreatitis type: unspecified pancreatitis type Acute pancreatitis complication: unspecified Qualified Code(s): K85.90 - Acute pancreatitis without necrosis or infection, unspecified Is this a current diagnosis for this admission?: Yes Plan: Improving. Tolerating p.o. intake. Mild improvement. This most likely to EtOH abuse. 07/11/2019. CT abdomen and pelvis. Diffuse enlargement of the pancreas without evidence of pancreatic necrosis. Moderate amount of ascites in the abdomen pelvis. No focal drainable abscess. Hepatomegaly with moderate hepatic steatosis. Continue fluid resuscitation guided by volume status. Opioid and non-opioid analgesics. Antiemetics. Empiric IV antibiotics. Given hypoxia, ascites, and underlying possible cirrhosis will need to cut down on fluids and monitor vital status. (4) Alcoholic hepatitis with ascites Is this a current diagnosis for this admission?: Yes Plan: Patient denies having history of cirrhosis however abdominal CT is positive for hepatomegaly and hepatic steatosis and patient has history of alcohol abuse. Patient also noted to have megaloblastic anemia and thrombocytopenia with significant ascites on physical examination. Unfortunate patient has acute alcoholic pancreatitis and needs to be on IV fluids but due to worsening ascites and hypoxia will need to hold IV fluids and possibly start on IV Lasix and paracentesis. 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 B12 and folic acid WNL. Continue supplements of B12 and folic acid. Monitor H&H. Supportive transfusions. (6) Tobacco dependency Is this a current diagnosis for this admission?: Yes Plan: Advised abstinence. Does not appear to be in withdrawal. Continue DT precautions. - Plan Summary Summary: 07/13/2019 Acute pancreatitis-the patient will be made n.p.o. He will get aggressive IV fluids. We will continue to monitor the serum chemistries. Pancreatitis secondary to alcoholism Abdominal pain and ascites secondary to pancreatitis and possible alcohol related hepatitis-analgesia and supportive care. Consider Aldactone after further evaluation. Alcohol-related hepatitis with hepatomegaly and ascites-the patient was warned about worsening complications from ongoing alcoholism. In view of potential withdrawal IV benzodiazepine therapy is available. Alcohol and nicotine dependency-I have prescribed a nicotine patch as needed. When the patient is feeling better I will discuss potential detox plans. Megaloblastic anemia-the patient was mildly anemic but his MCV was 111. This is likely related to his alcohol abuse. I have ordered anemia studies and the patient will likely benefit from folic acid and B12. I have asked nursing to monitor intake and output. In addition to the IV benzodiazepine therapy, IV analgesia will be available. The patient will be n.p.o. He will get aggressive IV fluids. This will include a banana bag. We will check laboratory studies daily and continue ongoing evaluation of the patient. 07/14/2019 The patient is still having a significant amount of pain. His lipase did come down by almost half. His white blood cell count went up slightly. I discussed the case with Dr. Martin. We are going to add antibiotic therapy. He lost his IV access and unfortunately he had not gotten as much IV fluid as high as ordered. I spoke to the nurse and she is going to correct this. His urine was dark and he clearly needed the fluid. The patient exhibited hypocalcemia and hypomagnesemia. I did order a ionized calcium and this was low as well. He did receive 2 g of calcium gluconate and IV magnesium sulfate. I will recheck his numbers and monitor them daily. While he is n.p.o. I will supplement by intravenous. He is still having significant pain. I did increase the narcotic analgesia for him. His anemia is stable. 07/15/2019 The patient still has significant abdominal pain. His abdomen is still tense. I did discuss with surgery his seeming lack of progress. I have added albumin infusions to try and improve oncotic pressure. His albumin has dropped below 2.0. Unfortunately he still requires large volume fluids to treat the pancreatitis. He is still strictly n.p.o. I have increased the pain regimen again. Because of thrombocytopenia I stopped the heparin. Surgery will continue to follow the patient. The concern is for developing complications. He remains on antibiotic therapy as well. We will continue to monitor his laboratory studies on a daily basis.
[2019-07-18] MEDS ORDERED: ACETYLCYSTEINE 20% SOLN 800 MG/4 ML VIAL.NEB NEB ONE (14:00)
[2019-07-18] MEDS: IPRATROPIUM/ALBUTEROL 0.5-2.5 MG/3 ML AMPUL NEB SCH ×2 (14:01→20:05)
[2019-07-18] MEDS: GUAIFENESIN/CODEINE PHOS 100-10 MG/ 5 ML UDC PO PRN ×2 (14:46→20:06)
[2019-07-18 19:09] LABS: ARTERIAL BLOOD BASE EXCESS 3.8 mmol/L; ARTERIAL BLOOD FIO2 4L; ARTERIAL BLOOD H2CO3 1.14 mmol/L (1.05-1.35); ARTERIAL BLOOD HCO3 27.5 mmol/L (20-24); ARTERIAL BLOOD O2 SATURATION 94.6 % (94-98); ARTERIAL BLOOD PH 7.48 (7.35-7.45); ARTERIAL BLOOD PO2 67.3 mmHg (80-100); ARTERIAL BLOOD TOTAL CO2 28.7 mmol/L (23-27)
--- NOTE | 2019-07-18 20:28 | RADIOLOGY REPORT (SQ) ---
EXAM DESCRIPTION: CT CHEST ANGIOGRAPHY WITHOUT THEN WITH IV CONTRAST COMPLETED DATE/TME: 07/18/2019 00:00 CLINICAL HISTORY: 28 years, Male, Worsening hypoxia and tachypnea COMPARISON: None. TECHNIQUE: Contrast enhanced CT of the chest was acquired. Images were obtained after the uneventful administration of 58 mL of Omnipaque 350 intravenous contrast. MIPS were created. Images stored on PACS. All CT scanners at this facility use dose modulation, iterative reconstruction, and/or weight based dosing when appropriate to reduce radiation dose to as low as reasonably achievable (ALARA). [facility]: Dose Right [facility]: CareDose [facility]: Dose Right [facility]: Teradose 4D [facility]: Smart Lou[place]ye LIMITATIONS: None. FINDINGS: Central airways are patent. Lung windows show large bilateral pleural effusions with associated partial passive collapse of both lower lobes. Superimposed multifocal groundglass opacity is noted about both upper lobes as well as the right middle lobe and lingula with areas of interlobular septal thickening. Superimposed bands of opacity are noted about both lower lobes, indicating foci of subsegmental atelectasis. There is also a more focal area of consolidation located within the lingula. Mediastinal windows show several mildly enlarged right hilar and mediastinal lymph nodes. For example, there is an enlarged prevascular lymph node on image 39 of series 3 measuring 1.4 x 1.1 cm in size. An additional enlarged right hilar lymph node is also evident measuring 2.1 x 1.4 cm in size on image 50 of series 3. Trace pericardial effusion is evident. The pulmonary artery is enlarged, measuring 3.3 cm in short axis. The study is limited for the evaluation of pulmonary emboli secondary to motion artifact and contrast bolus timing. No filling defects are identified to the lobar level. Limited evaluation of the upper abdomen reveals that the liver is diffusely low in attenuation relative to the spleen. There is diffuse peripancreatic inflammatory stranding and fluid, also appreciated on the previous CT abdomen/pelvis dated 07/13/2019. Additionally, the pancreas appears diffusely edematous. Bone windows show no destructive osseous lesions. IMPRESSION: Limited study, as above. No evidence of pulmonary embolism to the lobar level. Large bilateral pleural effusions with associated partial passive collapse of both lower lobes. Superimposed widespread bilateral groundglass opacity within both upper lobes, right middle lobe, and lingula with elements of interlobular septal thickening either indicates an underlying atypical infectious/inflammatory process (to include viral pneumonia), ARDS, acute interstitial pneumonitis and/or interstitial edema. Hepatic steatosis. Diffuse pancreatic edema with peripancreatic fluid/and premature stranding, in keeping with acute pancreatitis. TECHNICAL DOCUMENTATION: Quality ID # [id number]: Final reports with documentation of one or more dose reduction techniques (e.g., Automated exposure control, adjustment of the mA and/or kV according to patient size, use of iterative reconstruction technique) copyright 2011 [employer]- All Rights Reserved
[2019-07-18] MEDS: FUROSEMIDE INJ/PF 40 MG/4 ML SDV IV SCH (21:26)
[2019-07-18] MEDS: GUAIFENESIN 600 MG TABLET.SA PO SCH (21:26)
[2019-07-19] MEDS: KETOROLAC TROMETHAMINE INJ/PF 30 MG/1 ML SDV IV PRN ×4 (04:16→23:34)
[2019-07-19] MEDS: GUAIFENESIN/CODEINE PHOS 100-10 MG/ 5 ML UDC PO PRN ×3 (04:16→20:29)
[2019-07-19] MEDS: MEROPENEM 1 GM in NORMAL SALINE 50 ML IV SCH ×3 (05:26→21:30)
[2019-07-19] MEDS: OXYCODONE-ACETAMINOPHEN 5-325 MG TABLET PO PRN ×5 (06:18→23:48)
[2019-07-19 08:13] LABS: HEMATOCRIT 24.8 % (37.9-51.0); HEMOGLOBIN 8.2 g/dL (13.5-17.0); MEAN CORPUSCULAR HEMOGLOBIN 37.7 pg (27.0-33.4); MEAN CORPUSCULAR HGB CONC 33.3 g/dL (32.0-36.0); MEAN CORPUSCULAR VOLUME 113 fl (80-97); PLATELET COUNT 314 10^3/uL (150-450); RED BLOOD COUNT 2.19 10^6/uL (4.35-5.55); RED CELL DISTRIBUTION WIDTH 17.6 % (11.5-14.0); WHITE BLOOD COUNT 12.2 10^3/uL (4.0-10.5)
[2019-07-19] MEDS: IPRATROPIUM/ALBUTEROL 0.5-2.5 MG/3 ML AMPUL NEB SCH ×3 (08:14→20:00)
[2019-07-19 08:33] LABS: ALKALINE PHOSPHATASE 126 U/L (38-126); ANION GAP 9 (5-19); ASPARTATE AMINO TRANSFERASE 64 U/L (17-59); BILIRUBIN,DIRECT 0.5 mg/dL (0.0-0.4); BILIRUBIN,TOTAL 0.7 mg/dL (0.2-1.3); BLOOD UREA NITROGEN 9 mg/dL (7-20); CALCIUM 8.8 mg/dL (8.4-10.2); CARBON DIOXIDE 31 mmol/L (22-30); CHLORIDE 99 mmol/L (98-107); GLUCOSE 88 mg/dL (75-110); POTASSIUM 4.1 mmol/L (3.6-5.0); TOTAL PROTEIN 5.8 g/dL (6.3-8.2)
[2019-07-19 08:37] LABS: HEPATITS B SURFACE ANTIGEN Negative (Negative)
[2019-07-19 10:11] LABS: HEPATITIS C VIRUS ANTIBODY <0.1 s/co ratio (0.0-0.9)
[2019-07-19] MEDS: PANTOPRAZOLE SODIUM 40 MG VIAL IV SCH ×2 (10:11→21:30)
[2019-07-19] MEDS: FUROSEMIDE INJ/PF 40 MG/4 ML SDV IV SCH (10:11)
[2019-07-19] MEDS: GUAIFENESIN 600 MG TABLET.SA PO SCH ×2 (10:11→21:30)
[2019-07-19] MEDS: AZITHROMYCIN 250 MG TABLET PO SCH (10:11)
[2019-07-19] MEDS: NICOTINE 21 MG/24 HR PATCH.TD24 TD PRN (10:12)
--- NOTE | 2019-07-19 16:01 | PDOC PROGRESS REPORT ---
Subjective Progress Note for:: 07/19/19 Subjective:: KACY DUMAS is a 28 year old male with no significant medical or surgical history presents to the emergency department with severe abdominal pain. The patient states that his stomach had been feeling upset yesterday but he was not having any significant pain. At approximately 3 AM he was awakened with abdominal pain. It was severe. It was associated with nausea and vomiting. He denied fever or chills. He denies hematemesis. He has never had anything like this before. He admits to drinking 3 of the 22 ounce cans of beer daily and smoking 1 to 1-1/2 packs of cigarettes daily. Evaluation revealed an elevated lipase of 4981.6. Alkaline phosphatase was sli ghtly elevated at 197. ALT was normal and AST was 102. Total bilirubin was normal. His potassium was low at 3.5. His white blood cell count was elevated at 11.9 and 81% neutrophils. Hemoglobin was 11.2, hematocrit 31.9 and his MCV was elevated at 111. Diagnostic imaging shows acute pancreatitis with hepatomegaly and ascites. Surgery has seen the patient. Will admit patient to the medical service. 07/16/2019. Patient complaining of persistent abdominal pain, 4/5 associated with abdominal distention and nausea. Also noted to be hypoxic today and desaturated when ambulating. 07/17/2019. No acute events overnight. Patient endorsing some improvement of abdominal pain, 3 out of 5. Able to tolerate clear liquid. Denies any fever, chills, nausea, vomiting, diarrhea, constipation or any urinary symptoms. 07/18/2019. No acute events overnight. Abdominal pain improving, stating that it is 2 out of 5, tolerating his p.o. feeds, bowel movement yesterday. Still complaining of persistent productive cough abdominal distention and shortness of breath. Any fever, chest pain, nausea, vomiting, diarrhea, constipation or any urinary symptoms. 07/19/2019. Today patient is feeling much better, stating that shortness of breath is improving, abdominal pain is still there but improving compared to yesterday, p.o. tolerant but does not like the food in the hospital. Passing flatus has had one bowel movement. Denies any fever, chest pain, nausea, vomiting, diarrhea or any urinary symptoms. Reason For Visit: ACUTE PANCREATITIS HEPATOMEGALY ABDOMINAL PAIN Physical Exam Vital Signs: Temp Pulse Resp BP Pulse Ox 98.4 F 96 19 139/89 H 98 07/19/19 11:47 07/19/19 14:11 07/19/19 14:11 07/19/19 11:47 07/19/19 14:11 Intake & Output 07/18/19 07/19/19 07/20/19 06:59 06:59 06:59 Intake Total 1941 1491 50 Output Total 950 875 Balance 991 616 50 Weight 77.9 kg 77.6 kg 77.6 kg General appearance: PRESENT: no acute distress, well-developed, well-nourished Head exam: PRESENT: atraumatic, normocephalic Respiratory exam: PRESENT: crackles, decreased breath sounds. ABSENT: rales, rhonchi, wheezes Results Laboratory Results: 07/19/19 07:25 07/19/19 07:25 07/18/19 07/19/19 07/19/19 18:55 07:25 07:25 WBC 12.2 H RBC 2.19 L Hgb 8.2 L Hct 24.8 L MCV 113 H MCH 37.7 H MCHC 33.3 RDW 17.6 H Plt Count 314 Carbonic Acid 1.14 HCO3/H2CO3 Ratio 24:1 ABG pH 7.48 H ABG pCO2 38.0 ABG pO2 67.3 L ABG HCO3 27.5 H ABG O2 Saturation 94.6 ABG Base Excess 3.8 FiO2 4L Sodium 138.8 Potassium 4.1 Chloride 99 Carbon Dioxide 31 H Anion Gap 9 BUN 9 Creatinine 0.75 Est GFR ( Amer) > 60 Glucose 88 Calcium 8.8 Total Bilirubin 0.7 AST 64 H Alkaline Phosphatase 126 Total Protein 5.8 L Albumin 3.0 L Impressions: Acute Abdomen Series 07/13/19 07:18 IMPRESSION: NO RADIOGRAPHIC EVIDENCE FOR ACUTE ABDOMINAL DISEASE. Abdomen Ultrasound 07/13/19 08:37 IMPRESSION: Distended gallbladder without stones. Positive sonographic Ohara's sign. Abdomen/Pelvis CT 07/13/19 10:55 IMPRESSION: 1. Diffuse enlargement of the pancreas without evidence of pancreatic necrosis. Findings are consistent with acute pancreatitis. 2. Moderate amount of ascites in the abdomen and pelvis. No focal drainable abscess. 3. Hepatomegaly with moderate hepatic steatosis. Chest X-Ray 07/16/19 00:00 IMPRESSION: Multicentric pneumonia in the left lower lobe more than the right middle lobe. Small right pleural effusion. Chest/Abdomen CTA 07/18/19 00:00 IMPRESSION: Limited study, as above. No evidence of pulmonary embolism to the lobar level. Large bilateral pleural effusions with associated partial passive collapse of both lower lobes. Superimposed widespread bilateral groundglass opacity within both upper lobes, right middle lobe, and lingula with elements of interlobular septal thickening either indicates an underlying atypical infectious/inflammatory process (to include viral pneumonia), ARDS, acute interstitial pneumonitis and/or interstitial edema. Hepatic steatosis. Diffuse pancreatic edema with peripancreatic fluid/and premature stranding, in keeping with acute pancreatitis. TECHNICAL DOCUMENTATION: Quality ID # [id number]: Final reports with documentation of one or more dose reduction techniques (e.g., Automated exposure control, adjustment of the mA and/or kV according to patient size, use of iterative reconstruction technique) copyright 2011 [email or web address]- All Rights Reserved Assessment and Plan - Diagnosis (1) Multifocal pneumonia Is this a current diagnosis for this admission?: Yes Plan: Improving. Afebrile. Cough improving. Most likely community-acquired,gram-positives including Streptococcus pneumonia. 07/11/2019. CTA negative for PE. CTA positive for bilateral pleural effusions, superimposed widespread bilateral groundglass opacities and atypical infectious process such as pneumonia, ARDS or or interstitial pneumonitis. Day 6 IV antibiotics. Day 6 IV meropenem. Day 3 p.o. azithromycin. Blood cultures no growth x24 hours. Continue back IV antibiotics. (2) Acute respiratory failure with hypoxia Is this a current diagnosis for this admission?: Yes Plan: Mild improvement. SPO2 WNL on 2 to 3 L. Likely due to underlying pneumonia complicated by aggressive volume resusci tation for underlying alcoholic pancreatitis in the setting of severe ascites and alcoholic cirrhosis. Continue supplemental oxygen. Duo nebs. Plan as per #1. (3) Pancreatitis Qualifiers: Chronicity: acute Pancreatitis type: unspecified pancreatitis type Acute pancreatitis complication: unspecified Qualified Code(s): K85.90 - Acute pancreatitis without necrosis or infection, unspecified Is this a current diagnosis for this admission?: Yes Plan: Improving. Tolerating p.o. intake. This most likely to EtOH abuse. 07/11/2019. CT abdomen and pelvis. Diffuse enlargement of the pancreas without evidence of pancreatic necrosis. Moderate amount of ascites in the abdomen pelvis. No focal drainable abscess. Hepatomegaly with moderate hepatic steatosis. DC IV fluids given pleural effusion, hypoxia and underlying cirrhosis. Continue opioid and non-opioid analgesics. Antiemetics. Empiric IV antibiotic s. (4) Alcoholic hepatitis with ascites Is this a current diagnosis for this admission?: Yes Plan: Mostly alcoholic hepatitis given history of alcoholism. Hepatitis panel negative. Patient denies having history of cirrhosis however abdominal CT is positive for hepatomegaly and hepatic steatosis and patient has history of alcohol abuse. Patient also noted to have megaloblastic anemia and thrombocytopenia with significant ascites on physical examination. 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 B12 and folic acid WNL. Continue supplements of B12 and folic acid. Monitor H&H. Supportive transfusions. (6) Tobacco dependency Is this a current diagnosis for this admission?: Yes Plan: Advised abstinence. Does not appear to be in withdrawal. Continue DT precautions. (7) Bilateral pleural effusion Is this a current diagnosis for this admission?: Yes Plan: Likely due to aggressive volume resuscitation for acute pancreatitis complicated by underlying liver cirrhosis and pneumonia. Hold IV fluids. Cautious diuresis. Repeat chest x-ray if no improvement. Possible thoracentesis. - Plan Summary Summary: 07/13/2019 Acute pancreatitis-the patient will be made n.p.o. He will get aggressive IV fluids. We will continue to monitor the serum chemistries. Pancreatitis secondary to alcoholism Abdominal pain and ascites secondary to pancreatitis and possible alcohol related hepatitis-analgesia and supportive care. Consider Aldactone after further evaluation. Alcohol-related hepatitis with hepatomegaly and ascites-the patient was warned about worsening complications from ongoing alcoholism. In view of potential withdrawal IV benzodiazepine therapy is available. Alcohol and nicotine dependency-I have prescribed a nicotine patch as needed. When the patient is feeling better I will discuss potential detox plans. Megaloblastic anemia-the patient was mildly anemic but his MCV was 111. This is likely related to his alcohol abuse. I have ordered anemia studies and the patient will likely benefit from folic acid and B12. I have asked nursing to monitor intake and output. In addition to the IV benzodiazepine therapy, IV analgesia will be available. The patient will be n.p.o. He will get aggressive IV fluids. This will include a banana bag. We will check laboratory studies daily and continue ongoing evaluation of the patient. 07/14/2019 The patient is still having a significant amount of pain. His lipase did come down by almost half. His white blood cell count went up slightly. I discussed the case with Dr. Martin. We are going to add antibiotic therapy. He lost his IV access and unfortunately he had not gotten as much IV fluid as high as ordered. I spoke to the nurse and she is going to correct this. His urine was dark and he clearly needed the fluid. The patient exhibited hypocalcemia and hypomagnesemia. I did order a ionized calcium and this was low as well. He did receive 2 g of calcium gluconate and IV magnesium sulfate. I will recheck his numbers and monitor them daily. While he is n.p.o. I will supplement by intravenous. He is still having significant pain. I did increase the narcotic analgesia for him. His anemia is stable. 07/15/2019 The patient still has significant abdominal pain. His abdomen is still tense. I did discuss with surgery his seeming lack of progress. I have added albumin infusions to try and improve oncotic pressure. His albumin has dropped below 2.0. Unfortunately he still requires large volume fluids to treat the pancreatitis. He is still strictly n.p.o. I have increased the pain regimen again. Because of thrombocytopenia I stopped the heparin. Surgery will continue to follow the patient. The concern is for developing complications. He remains on antibiotic therapy as well. We will continue to monitor his laboratory studies on a daily basis.
[2019-07-20] MEDS: MEROPENEM 1 GM in NORMAL SALINE 50 ML IV SCH (05:37)
[2019-07-20] MEDS: OXYCODONE-ACETAMINOPHEN 5-325 MG TABLET PO PRN ×4 (05:37→21:29)
[2019-07-20] MEDS: KETOROLAC TROMETHAMINE INJ/PF 30 MG/1 ML SDV IV PRN ×3 (05:38→18:10)
[2019-07-20 05:43] LABS: ABSOLUTE BASOPHILS # (AUTO) 0.1 10^3/uL (0.0-0.2); ABSOLUTE EOSINOPHILS # (AUTO) 0.5 10^3/uL (0.0-0.6); ABSOLUTE LYMPHOCYTES (AUTO) 1.5 10^3/uL (0.5-4.7); ABSOLUTE MONOCYTES (AUTO) 1.1 10^3/uL (0.1-1.4); ABSOLUTE NEUT (AUTO) 10.1 10^3/uL (1.7-8.2); BASOPHILS % (AUTO) 0.5 % (0-2); EOSINOPHILS % (AUTO) 3.7 % (0-6); HEMATOCRIT 25.1 % (37.9-51.0); HEMOGLOBIN 8.5 g/dL (13.5-17.0); LYMPHOCYTES % (AUTO) 11.5 % (13-45); MEAN CORPUSCULAR HEMOGLOBIN 37.3 pg (27.0-33.4); MEAN CORPUSCULAR HGB CONC 33.8 g/dL (32.0-36.0); MEAN CORPUSCULAR VOLUME 110 fl (80-97); MONOCYTES % (AUTO) 8.2 % (3-13); PLATELET COUNT 394 10^3/uL (150-450); RED BLOOD COUNT 2.27 10^6/uL (4.35-5.55); RED CELL DISTRIBUTION WIDTH 18.1 % (11.5-14.0); SEGMENTED NEUTROPHILS % (AUTO) 76.1 % (42-78); TOTAL CELLS COUNTED % (AUTO) 100 %; WHITE BLOOD COUNT 13.3 10^3/uL (4.0-10.5)
[2019-07-20] MEDS: GUAIFENESIN/CODEINE PHOS 100-10 MG/ 5 ML UDC PO PRN ×3 (05:52→18:10)
[2019-07-20 05:59] LABS: ALBUMIN 2.8 g/dL (3.5-5.0); ALKALINE PHOSPHATASE 125 U/L (38-126); ANION GAP 5 (5-19); ASPARTATE AMINO TRANSFERASE 50 U/L (17-59); BILIRUBIN,DIRECT 0.1 mg/dL (0.0-0.4); BILIRUBIN,TOTAL 0.4 mg/dL (0.2-1.3); BLOOD UREA NITROGEN 11 mg/dL (7-20); CALCIUM 8.9 mg/dL (8.4-10.2); CARBON DIOXIDE 32 mmol/L (22-30); CHLORIDE 101 mmol/L (98-107); GLUCOSE 92 mg/dL (75-110); POTASSIUM 4.1 mmol/L (3.6-5.0); TOTAL PROTEIN 5.3 g/dL (6.3-8.2)
[2019-07-20 06:10] LABS: ANISOCYTOSIS 2+; POLYCHROMASIA 1+
[2019-07-20 06:11] LABS: PLATELET COMMENT ADEQUATE
--- NOTE | 2019-07-20 08:29 | Progress Note ---
Provider Note Provider Note: [facility] Telephone Advice Consultation Chart reviewed. Patient is a 28-year-old man who was admitted on 07/15 with w orsening abdominal pain. He was presenting nausea and vomiting as well. On admission he had leukocytosis, lipase almost 5,000 and mildly elevated alkaline phosphatase. CT scan of abdomen and pelvis consistent with pancreatitis. He was started on IV fluids, npo, meropenem. He started presenting shortness of breath and azithromycin was added for atypical coverage. Per notes, symptoms have been improving. Lipase significantly improved to 200s now. PMH: GERD PSH: Not known Allergies: No Known Allergies Allergy (Unverified 01/31/19 10:40) Medications: Omeprazole Magnesium [Prilosec Otc] 20 mg PO DAILY 07/13/19 [History] Vital Signs: Temp Pulse Resp BP Pulse Ox 98.4 F 84 19 153/86 H 94 07/19/19 20:00 07/19/19 20:03 07/19/19 20:03 07/19/19 20:00 07/19/19 20:03 Intake & Output 07/19/19 07/20/19 07/21/19 06:59 06:59 06:59 Intake Total 1491 390 Output Total 875 300 Balance 616 90 Weight 77.6 kg 77.9 kg Weight/Height Weight 77.9 kg Height 5 ft 5 in Laboratories: 07/20/19 05:19 07/20/19 05:19 MCV 110 fl (80-97) H 07/20/19 05:19 MCH 37.3 pg (27.0-33.4) H 07/20/19 05:19 MCHC 33.8 g/dL (32.0-36.0) 07/20/19 05:19 RDW 18.1 % (11.5-14.0) H 07/20/19 05:19 Seg Neutrophils % 76.1 % (42-78) 07/20/19 05:19 Retic Count (auto) 3.68 % (0.66-2.85) H 07/14/19 05:11 Carbonic Acid 1.14 mmol/L (1.05-1.35) 07/18/19 18:55 HCO3/H2CO3 Ratio 24:1 07/18/19 18:55 ABG pH 7.48 (7.35-7.45) H 07/18/19 18:55 ABG pCO2 38.0 mmHg (35-45) 07/18/19 18:55 ABG pO2 67.3 mmHg (80-100) L 07/18/19 18:55 ABG HCO3 27.5 mmol/L (20-24) H 07/18/19 18:55 ABG O2 Saturation 94.6 % (94-98) 07/18/19 18:55 ABG Base Excess 3.8 mmol/L 07/18/19 18:55 FiO2 4L 07/18/19 18:55 Chloride 101 mmol/L (98-107) 07/20/19 05:19 Carbon Dioxide 32 mmol/L (22-30) H 07/20/19 05:19 Anion Gap 5 (5-19) 07/20/19 05:19 Est GFR ( Amer) > 60 (>60) 07/20/19 05:19 Glucose 92 mg/dL (75-110) 07/20/19 05:19 Calcium 8.9 mg/dL (8.4-10.2) 07/20/19 05:19 Ionized Calcium Shania 1.06 mmol/L (1.14-1.30) L 07/14/19 16:30 Magnesium 2.0 mg/dL (1.6-2.3) 07/20/19 05:19 Iron 29.7 ug/dL (49-181) L 07/14/19 05:11 TIBC 250 ug/dL (250-450) 07/14/19 05:11 % Saturation 12 % 07/14/19 05:11 Ferritin 628.00 ng/mL (17.9-464.0) H 07/14/19 05:11 Total Bilirubin 0.4 mg/dL (0.2-1.3) 07/20/19 05:19 AST 50 U/L (17-59) 07/20/19 05:19 Alkaline Phosphatase 125 U/L (38-126) 07/20/19 05:19 Total Protein 5.3 g/dL (6.3-8.2) L 07/20/19 05:19 Albumin 2.8 g/dL (3.5-5.0) L 07/20/19 05:19 Triglycerides 116 mg/dL (<150) 07/14/19 05:11 Cholesterol 120.53 mg/dL (0-200) 07/14/19 05:11 LDL Cholesterol Direct 57 mg/dL (<100) 07/14/19 05:11 VLDL Cholesterol 23.0 mg/dL (10-31) 07/14/19 05:11 HDL Cholesterol 35 mg/dL (>40) L 07/14/19 05:11 Lipase 206.1 U/L (23-300) 07/20/19 05:19 Vitamin B12 > 1000.0 pg/mL (239-931) H 07/14/19 05:11 Folate > 20.00 ng/mL (>2.76) 07/14/19 05:11 Urine Color YELLOW 07/13/19 08:57 Urine Appearance CLEAR 07/13/19 08:57 Urine pH 5.0 (5.0-9.0) 07/13/19 08:57 Ur Specific [place] 1.013 07/13/19 08:57 Urine Protein NEGATIVE mg/dL (NEGATIVE) 07/13/19 08:57 Urine Glucose (UA) NEGATIVE mg/dL (NEGATIVE) 07/13/19 08:57 Urine Ketones NEGATIVE mg/dL (NEGATIVE) 07/13/19 08:57 Urine Blood NEGATIVE (NEGATIVE) 07/13/19 08:57 Urine Nitrite NEGATIVE (NEGATIVE) 07/13/19 08:57 Ur Leukocyte Esterase NEGATIVE (NEGATIVE) 07/13/19 08:57 Urine WBC (Auto) 2 /HPF 07/13/19 08:57 Microbiology: Blood cultures 07/17/19 NGTD Radiology: Acute Abdomen Series 07/13/19 07:18 IMPRESSION: NO RADIOGRAPHIC EVIDENCE FOR ACUTE ABDOMINAL DISEASE. Abdomen Ultrasound 07/13/19 08:37 IMPRESSION: Distended gallbladder without stones. Positive sonographic Ohara's sign. Abdomen/Pelvis CT 07/13/19 10:55 IMPRESSION: 1. Diffuse enlargement of the pancreas without evidence of pancreatic necrosis. Findings are consistent with acute pancreatitis. 2. Moderate amount of ascites in the abdomen and pelvis. No focal drainable abscess. 3. Hepatomegaly with moderate hepatic steatosis. Chest X-Ray 07/16/19 00:00 IMPRESSION: Multicentric pneumonia in the left lower lobe more than the right middle lobe. Small right pleural effusion. Chest/Abdomen CTA 07/18/19 00:00 IMPRESSION: Limited study, as above. No evidence of pulmonary embolism to the lobar level. Large bilateral pleural effusions with associated partial passive collapse of both lower lobes. Superimposed widespread bilateral groundglass opacity within both upper lobes, right middle lobe, and lingula with elements of interlobular septal thickening either indicates an underlying atypical infectious/inflammatory process (to include viral pneumonia), ARDS, acute interstitial pneumonitis and/or interstitial edema. Hepatic steatosis. Diffuse pancreatic edema with peripancreatic fluid/and premature stranding, in keeping with acute pancreatitis. Assessment and Recommendations: Patient evaluated due to acute pancreatitis. He has clinically improved per notes, although still has leukocytosis. Chest imaging consistent with volume overload - interstitial edema and pleural effusions typically for pancreatitis with 3rd spacing. CT abdomen and pelvis not demonstrating a necrotizing process. Can consider discontinuing azithromycin as this seems to be all related to pancreatitis. If his respiratory symptoms worsen can consider therapeutic thoracentesis. In terms of intra abdominal coverage, as there is no necrotizing process, can consider to hold meropenem and monitor. If worsening leukocytosis, can repeat CT scan of abdomen and pelvis. Antibiotics are usually not needed for pancreatitis unless concerns of pancreatic necrosis or development of abscess. Please call if questions. Olya Kaur MD [facility] ID [id number]
[2019-07-20] MEDS: IPRATROPIUM/ALBUTEROL 0.5-2.5 MG/3 ML AMPUL NEB SCH ×3 (08:43→20:23)
[2019-07-20] MEDS: AZITHROMYCIN 250 MG TABLET PO SCH (09:48)
[2019-07-20] MEDS: GUAIFENESIN 600 MG TABLET.SA PO SCH ×2 (09:48→21:29)
[2019-07-20] MEDS: PANTOPRAZOLE SODIUM 40 MG VIAL IV SCH ×2 (09:52→21:32)
[2019-07-20] MEDS: FUROSEMIDE INJ/PF 40 MG/4 ML SDV IV SCH ×2 (09:52→18:10)
--- NOTE | 2019-07-20 12:02 | PDOC PROGRESS REPORT ---
Subjective Progress Note for:: 07/20/19 Subjective:: KACY DUMAS is a 28 year old male with no significant medical or surgical history presents to the emergency department with severe abdominal pain. The patient states that his stomach had been feeling upset yesterday but he was not having any significant pain. At approximately 3 AM he was awakened with abdominal pain. It was severe. It was associated with nausea and vomiting. He denied fever or chills. He denies hematemesis. He has never had anything like this before. He admits to drinking 3 of the 22 ounce cans of beer daily and smoking 1 to 1-1/2 packs of cigarettes daily. Evaluation revealed an elevated lipase of 4981.6. Alkaline phosphatase was sli ghtly elevated at 197. ALT was normal and AST was 102. Total bilirubin was normal. His potassium was low at 3.5. His white blood cell count was elevated at 11.9 and 81% neutrophils. Hemoglobin was 11.2, hematocrit 31.9 and his MCV was elevated at 111. Diagnostic imaging shows acute pancreatitis with hepatomegaly and ascites. Surgery has seen the patient. Will admit patient to the medical service. 07/16/2019. Patient complaining of persistent abdominal pain, 4/5 associated with abdominal distention and nausea. Also noted to be hypoxic today and desaturated when ambulating. 07/17/2019. No acute events overnight. Patient endorsing some improvement of abdominal pain, 3 out of 5. Able to tolerate clear liquid. Denies any fever, chills, nausea, vomiting, diarrhea, constipation or any urinary symptoms. 07/18/2019. No acute events overnight. Abdominal pain improving, stating that it is 2 out of 5, tolerating his p.o. feeds, bowel movement yesterday. Still complaining of persistent productive cough abdominal distention and shortness of breath. Any fever, chest pain, nausea, vomiting, diarrhea, constipation or any urinary symptoms. 07/19/2019. Today patient is feeling much better, stating that shortness of breath is improving, abdominal pain is still there but improving compared to yesterday, p.o. tolerant but does not like the food in the hospital. Passing flatus has had one bowel movement. Denies any fever, chest pain, nausea, vomiting, diarrhea or any urinary symptoms. 07/20/2019. No acute events overnight. Moderate improvement of respiratory symptoms. Patient stated that he could not tolerate regular diet because it was making his abdominal distention and pain worse. Passing flatus, has had one bowel movement in the last 24 hours. Denies any fever, chills, chest pain, diarrhea or any urinary symptoms. Reason For Visit: ACUTE PANCREATITIS HEPATOMEGALY ABDOMINAL PAIN Physical Exam Vital Signs: Temp Pulse Resp BP Pulse Ox 98.6 F 87 18 152/85 H 94 07/20/19 08:01 07/20/19 08:45 07/20/19 08:45 07/20/19 08:01 07/20/19 08:45 Intake & Output 07/19/19 07/20/19 07/21/19 06:59 06:59 06:59 Intake Total 1491 390 170 Output Total 875 300 Balance 616 90 170 Weight 77.6 kg 77.9 kg General appearance: PRESENT: no acute distress, well-developed, well-nourished Head exam: PRESENT: atraumatic, normocephalic Respiratory exam: PRESENT: clear to auscultation cheri, decreased breath sounds - Bibasilar. ABSENT: rales, rhonchi, wheezes Cardiovascular exam: PRESENT: RRR. ABSENT: diastolic murmur, rubs, systolic murmur GI/Abdominal exam: PRESENT: ascites, firm, normal bowel sounds Neurological exam: PRESENT: alert, awake, oriented to person, oriented to place, oriented to time, oriented to situation, CN II-XII grossly intact. ABSENT: motor sensory deficit Results Laboratory Results: 07/20/19 05:19 07/20/19 05:19 07/20/19 07/20/19 05:19 05:19 WBC 13.3 H RBC 2.27 L Hgb 8.5 L Hct 25.1 L MCV 110 H MCH 37.3 H MCHC 33.8 RDW 18.1 H Plt Count 394 Seg Neutrophils % 76.1 Sodium 137.6 Potassium 4.1 Chloride 101 Carbon Dioxide 32 H Anion Gap 5 BUN 11 Creatinine 0.70 Est GFR ( Amer) > 60 Glucose 92 Calcium 8.9 Magnesium 2.0 Total Bilirubin 0.4 AST 50 Alkaline Phosphatase 125 Total Protein 5.3 L Albumin 2.8 L Lipase 206.1 Impressions: Acute Abdomen Series 07/13/19 07:18 IMPRESSION: NO RADIOGRAPHIC EVIDENCE FOR ACUTE ABDOMINAL DISEASE. Abdomen Ultrasound 07/13/19 08:37 IMPRESSION: Distended gallbladder without stones. Positive sonographic Ohara's sign. Abdomen/Pelvis CT 07/13/19 10:55 IMPRESSION: 1. Diffuse enlargement of the pancreas without evidence of pancreatic necrosis. Findings are consistent with acute pancreatitis. 2. Moderate amount of ascites in the abdomen and pelvis. No focal drainable abscess. 3. Hepatomegaly with moderate hepatic steatosis. Chest X-Ray 07/16/19 00:00 IMPRESSION: Multicentric pneumonia in the left lower lobe more than the right middle lobe. Small right pleural effusion. Chest/Abdomen CTA 07/18/19 00:00 IMPRESSION: Limited study, as above. No evidence of pulmonary embolism to the lobar level. Large bilateral pleural effusions with associated partial passive collapse of both lower lobes. Superimposed widespread bilateral groundglass opacity within both upper lobes, right middle lobe, and lingula with elements of interlobular septal thickening either indicates an underlying atypical infectious/inflammatory process (to include viral pneumonia), ARDS, acute interstitial pneumonitis and/or interstitial edema. Hepatic steatosis. Diffuse pancreatic edema with peripancreatic fluid/and premature stranding, in keeping with acute pancreatitis. TECHNICAL DOCUMENTATION: Quality ID # 436: Final reports with documentation of one or more dose reduction techniques (e.g., Automated exposure control, adjustment of the mA and/or kV according to patient size, use of iterative reconstruction technique) copyright 2011 [employer]- All Rights Reserved Assessment and Plan - Diagnosis (1) Multifocal pneumonia Is this a current diagnosis for this admission?: Yes Plan: Improving. Afebrile. Cough improving. Persistent leukocytosis. Most likely community-acquired,gram-positives including Streptococcus pneumonia. Patient is stating that he has been coughing for several months but has not seeked medical attention since his hospitalization. 07/11/2019. CTA negative for PE. Postive for bilateral pleural effusions, superimposed widespread bilateral groundglass opacities and atypical infectious process such as pneumonia, ARDS or or interstitial pneumonitis. Day 7 IV antibiotics. Day 1 IV cefepime. Received 4 days of p.o. azithromycin. Received 6 days of IV meropenem. Blood cultures no growth x24 hours. Continue back IV antibiotics. (2) Acute respiratory failure with hypoxia Is this a current diagnosis for this admission?: Yes Plan: Moderate improvement. SPO2 WNL 1 to 2 L. Likely due to underlying pneumonia complicated by aggressive volume resuscitation for underlying alcoholic pancreatitis in the setting of severe ascites and alcoholic cirrhosis. Continue supplemental oxygen. Duo nebs. Plan as per #1. (3) Pancreatitis Qualifiers: Chronicity: acute Pancreatitis type: unspecified pancreatitis type Acute pancreatitis complication: unspecified Qualified Code(s): K85.90 - Acute pancreatitis without necrosis or infection, unspecified Is this a current diagnosis for this admission?: Yes Plan: Improving. Could not tolerate a regular diet. Has had one bowel movement. Passing flatus. This most likely to EtOH abuse. 07/11/2019. CT abdomen and pelvis. Diffuse enlargement of the pancreas without evidence of pancreatic necrosis. Moderate amount of ascites in the abdomen pelvis. No focal drainable abscess. Hepatomegaly with moderate hepatic steatosis. DC IV fluids given pleural effusion, hypoxia and underlying cirrhosis. Continue opioid and non-opioid analgesics. Antiemetics. Empiric IV antibiotics. (4) Alcoholic hepatitis with ascites Is this a current diagnosis for this admission?: Yes Plan: Mostly alcoholic hepatitis given history of alcoholism. Hepatitis panel negative. Patient denies having history of cirrhosis however abdominal CT is positive for hepatomegaly and hepatic steatosis and patient has history of alcohol abuse. Patient also noted to have megaloblastic anemia and thrombocytopenia with significant ascites on physical examination. 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 B12 and folic acid WNL. Continue supplements of B12 and folic acid. Monitor H&H. Supportive transfusions. (6) Tobacco dependency Is this a current diagnosis for this admission?: Yes Plan: Advised abstinence. Does not appear to be in withdrawal. Continue DT precautions. (7) Bilateral pleural effusion Is this a current diagnosis for this admission?: Yes Plan: Likely due to aggressive volume resuscitation for acute pancreatitis complicated by underlying liver cirrhosis and pneumonia. Hold IV fluids. Cautious diuresis. Repeat chest x-ray if no improvement. If worsening respiratory symptoms will consider thoracentesis. - Plan Summary Summary: 07/13/2019 Acute pancreatitis-the patient will be made n.p.o. He will get aggressive IV fluids. We will continue to monitor the serum chemistries. Pancreatitis secondary to alcoholism Abdominal pain and ascites secondary to pancreatitis and possible alcohol related hepatitis-analgesia and supportive care. Consider Aldactone after further evaluation. Alcohol-related hepatitis with hepatomegaly and ascites-the patient was warned about worsening complications from ongoing alcoholism. In view of potential withdrawal IV benzodiazepine therapy is available. Alcohol and nicotine dependency-I have prescribed a nicotine patch as needed. When the patient is feeling better I will discuss potential detox plans. Megaloblastic anemia-the patient was mildly anemic but his MCV was 111. This is likely related to his alcohol abuse. I have ordered anemia studies and the patient will likely benefit from folic acid and B12. I have asked nursing to monitor intake and output. In addition to the IV benzodiazepine therapy, IV analgesia will be available. The patient will be n.p.o. He will get aggressive IV fluids. This will include a banana bag. We will check laboratory studies daily and continue ongoing evaluation of the patient. 07/14/2019 The patient is still having a significant amount of pain. His lipase did come down by almost half. His white blood cell count went up slightly. I discussed the case with Dr. Martin. We are going to add antibiotic therapy. He lost his IV access and unfortunately he had not gotten as much IV fluid as high as ordered. I spoke to the nurse and she is going to correct this. His urine was dark and he clearly needed the fluid. The patient exhibited hypocalcemia and hypomagnesemia. I did order a ionized calcium and this was low as well. He did receive 2 g of calcium gluconate and IV magnesium sulfate. I will recheck his numbers and monitor them daily. While he is n.p.o. I will supplement by intravenous. He is still having significant pain. I did increase the narcotic analgesia for him. His anemia is stable. 07/15/2019 The patient still has significant abdominal pain. His abdomen is still tense. I did discuss with surgery his seeming lack of progress. I have added albumin infusions to try and improve oncotic pressure. His albumin has dropped below 2.0. Unfortunately he still requires large volume fluids to treat the pancreatitis. He is still strictly n.p.o. I have increased the pain regimen again. Because of thrombocytopenia I stopped the heparin. Surgery will continue to follow the patient. The concern is for developing complications. He remains on antibiotic therapy as well. We will continue to monitor his laboratory studies on a daily basis.
[2019-07-20] MEDS: CEFEPIME 1 GM/D5W RTU 1 GM/50 ML RTUPB IV SCH (21:33)
[2019-07-21] MEDS: KETOROLAC TROMETHAMINE INJ/PF 30 MG/1 ML SDV IV PRN ×2 (04:51→17:47)
[2019-07-21 05:34] LABS: HEMATOCRIT 26.2 % (37.9-51.0); HEMOGLOBIN 8.9 g/dL (13.5-17.0); MEAN CORPUSCULAR HGB CONC 33.9 g/dL (32.0-36.0); MEAN CORPUSCULAR VOLUME 109 fl (80-97); PLATELET COUNT 526 10^3/uL (150-450); RED CELL DISTRIBUTION WIDTH 18.7 % (11.5-14.0); WHITE BLOOD COUNT 14.2 10^3/uL (4.0-10.5)
[2019-07-21] MEDS: GUAIFENESIN/CODEINE PHOS 100-10 MG/ 5 ML UDC PO PRN ×3 (05:48→17:53)
[2019-07-21] MEDS: OXYCODONE-ACETAMINOPHEN 5-325 MG TABLET PO PRN ×3 (05:48→18:50)
[2019-07-21] MEDS: IPRATROPIUM/ALBUTEROL 0.5-2.5 MG/3 ML AMPUL NEB SCH ×3 (08:40→20:16)
[2019-07-21] MEDS: GUAIFENESIN 600 MG TABLET.SA PO SCH ×2 (09:59→21:31)
[2019-07-21] MEDS: SPIRONOLACTONE 25 MG TABLET PO SCH (10:00)
[2019-07-21] MEDS: FUROSEMIDE INJ/PF 40 MG/4 ML SDV IV SCH ×2 (10:00→17:47)
[2019-07-21] MEDS: PANTOPRAZOLE SODIUM 40 MG VIAL IV SCH (10:00)
[2019-07-21] MEDS: CEFEPIME 1 GM/D5W RTU 1 GM/50 ML RTUPB IV SCH ×2 (10:45→21:31)
[2019-07-21] MEDS: MORPHINE SULFATE 10 MG/ML INJ IV PRN ×3 (11:58→21:31)
--- NOTE | 2019-07-21 13:10 | PDOC PROGRESS REPORT ---
Subjective Progress Note for:: 07/21/19 Subjective:: KACY DUMAS is a 28 year old male with no significant medical or surgical history presents to the emergency department with severe abdominal pain. The patient states that his stomach had been feeling upset yesterday but he was not having any significant pain. At approximately 3 AM he was awakened with abdominal pain. It was severe. It was associated with nausea and vomiting. He denied fever or chills. He denies hematemesis. He has never had anything like this before. He admits to drinking 3 of the 22 ounce cans of beer daily and smoking 1 to 1-1/2 packs of cigarettes daily. Evaluation revealed an elevated lipase of 4981.6. Alkaline phosphatase was sli ghtly elevated at 197. ALT was normal and AST was 102. Total bilirubin was normal. His potassium was low at 3.5. His white blood cell count was elevated at 11.9 and 81% neutrophils. Hemoglobin was 11.2, hematocrit 31.9 and his MCV was elevated at 111. Diagnostic imaging shows acute pancreatitis with hepatomegaly and ascites. Surgery has seen the patient. Will admit patient to the medical service. 07/16/2019. Patient complaining of persistent abdominal pain, 4/5 associated with abdominal distention and nausea. Also noted to be hypoxic today and desaturated when ambulating. 07/17/2019. No acute events overnight. Patient endorsing some improvement of abdominal pain, 3 out of 5. Able to tolerate clear liquid. Denies any fever, chills, nausea, vomiting, diarrhea, constipation or any urinary symptoms. 07/18/2019. No acute events overnight. Abdominal pain improving, stating that it is 2 out of 5, tolerating his p.o. feeds, bowel movement yesterday. Still complaining of persistent productive cough abdominal distention and shortness of breath. Any fever, chest pain, nausea, vomiting, diarrhea, constipation or any urinary symptoms. 07/19/2019. Today patient is feeling much better, stating that shortness of breath is improving, abdominal pain is still there but improving compared to yesterday, p.o. tolerant but does not like the food in the hospital. Passing flatus has had one bowel movement. Denies any fever, chest pain, nausea, vomiting, diarrhea or any urinary symptoms. 07/20/2019. No acute events overnight. Moderate improvement of respiratory symptoms. Patient stated that he could not tolerate regular diet because it was making his abdominal distention and pain worse. Passing flatus, has had one bowel movement in the last 24 hours. Denies any fever, chills, chest pain, diarrhea or any urinary symptoms. 07/21/2019. No acute events overnight. Shortness of breath improving however still complaining of persistent abdominal distention and epigastric abdominal pain, not able to tolerate regular diet, has had 1 bowel movement the last 24 hours, denies any fever, chills, nausea, vomiting, diarrhea or any urinary symptoms. Reason For Visit: ACUTE PANCREATITIS HEPATOMEGALY ABDOMINAL PAIN Physical Exam Vital Signs: Temp Pulse Resp BP Pulse Ox 98.2 F 89 20 141/88 H 98 07/21/19 08:05 07/21/19 08:40 07/21/19 08:40 07/21/19 08:05 07/21/19 08:40 Intake & Output 07/20/19 07/21/19 07/22/19 06:59 06:59 06:59 Intake Total 390 967 50 Output Total 300 Balance 90 967 50 Weight 77.9 kg 77.6 kg General appearance: PRESENT: no acute distress, well-developed, well-nourished Head exam: PRESENT: atraumatic, normocephalic Respiratory exam: PRESENT: clear to auscultation cheri, decreased breath sounds - Basilar.. ABSENT: rales, rhonchi, wheezes GI/Abdominal exam: PRESENT: ascites, distended, firm, normal bowel sounds, soft, tenderness. ABSENT: guarding, mass, organolmegaly, rebound Extremities exam: PRESENT: full ROM. ABSENT: calf tenderness, clubbing, pedal edema Musculoskeletal exam: PRESENT: ambulatory, full ROM, normal inspection Neurological exam: PRESENT: alert, awake, oriented to person, oriented to place, oriented to time, oriented to situation, CN II-XII grossly intact. ABSENT: motor sensory deficit Results Laboratory Results: 07/21/19 05:03 07/20/19 05:19 07/21/19 05:03 WBC 14.2 H RBC 2.40 L Hgb 8.9 L Hct 26.2 L MCV 109 H MCH 37.0 H MCHC 33.9 RDW 18.7 H Plt Count 526 H Impressions: Acute Abdomen Series 07/13/19 07:18 IMPRESSION: NO RADIOGRAPHIC EVIDENCE FOR ACUTE ABDOMINAL DISEASE. Abdomen Ultrasound 07/13/19 08:37 IMPRESSION: Distended gallbladder without stones. Positive sonographic Ohara's sign. Abdomen/Pelvis CT 07/13/19 10:55 IMPRESSION: 1. Diffuse enlargement of the pancreas without evidence of pancreatic necrosis. Findings are consistent with acute pancreatitis. 2. Moderate amount of ascites in the abdomen and pelvis. No focal drainable abscess. 3. Hepatomegaly with moderate hepatic steatosis. Chest X-Ray 07/16/19 00:00 IMPRESSION: Multicentric pneumonia in the left lower lobe more than the right middle lobe. Small right pleural effusion. Chest/Abdomen CTA 07/18/19 00:00 IMPRESSION: Limited study, as above. No evidence of pulmonary embolism to the lobar level. Large bilateral pleural effusions with associated partial passive collapse of both lower lobes. Superimposed widespread bilateral groundglass opacity within both upper lobes, right middle lobe, and lingula with elements of interlobular septal thickening either indicates an underlying atypical infectious/inflammatory process (to include viral pneumonia), ARDS, acute interstitial pneumonitis and/or interstitial edema. Hepatic steatosis. Diffuse pancreatic edema with peripancreatic fluid/and premature stranding, in keeping with acute pancreatitis. TECHNICAL DOCUMENTATION: Quality ID # 436: Final reports with documentation of one or more dose reduction techniques (e.g., Automated exposure control, adjustment of the mA and/or kV according to patient size, use of iterative reconstruction technique) copyright 2011 [employer]- All Rights Reserved Assessment and Plan - Diagnosis (1) Acute respiratory failure with hypoxia Is this a current diagnosis for this admission?: Yes Plan: Moderate improvement. SPO2 WNL 1 to 2 L. Likely due to underlying pneumonia complicated by aggressive volume resuscitation for underlying alcoholic pancreatitis in the setting of severe ascites and alcoholic cirrhosis. Continue supplemental oxygen. Duo nebs. Plan as per #1. (2) Multifocal pneumonia Is this a current diagnosis for this admission?: Yes Plan: Improving. Afebrile. Cough improving. Persistent leukocytosis. Most likely community-acquired,gram-positives including Streptococcus pneumonia. Patient is stating that he has been coughing for several months but has not seeked medical attention since his hospitalization. 07/11/2019. CTA negative for PE. Postive for bilateral pleural effusions, superimposed widespread bilateral groundglass opacities and atypical infectious process such as pneumonia, ARDS or or interstitial pneumonitis. Day 8 IV antibiotics. Day 2 IV cefepime. Received 4 days of p.o. azithromycin. Received 6 days of IV meropenem. Blood cultures no growth x24 hours. Continue back IV antibiotics. (3) Pancreatitis Qualifiers: Chronicity: acute Pancreatitis type: unspecified pancreatitis type Acute pancreatitis complication: unspecified Qualified Code(s): K85.90 - Acute pancreatitis without necrosis or infection, unspecified Is this a current diagnosis for this admission?: Yes Plan: Improving. Could not tolerate a regular diet. Has had one bowel movement. Passing flatus. This most likely to EtOH abuse. 07/11/2019. CT abdomen and pelvis. Diffuse enlargement of the pancreas without evidence of pancreatic necrosis. Moderate amount of ascites in the abdomen pelvis. No focal drainable abscess. Hepatomegaly with moderate hepatic steatosis. DC IV fluids given pleural effusion, hypoxia and underlying cirrhosis. Continue opioid and non-opioid analgesics. Antiemetics. Empiric IV antibiotics. (4) Alcoholic hepatitis with ascites Is this a current diagnosis for this admission?: Yes Plan: Mostly alcoholic hepatitis given history of alcoholism. Hepatitis panel negative. Patient denies having history of cirrhosis however abdominal CT is positive for hepatomegaly and hepatic steatosis and patient has history of alcohol abuse. Patient also noted to have megaloblastic anemia and thrombocytopenia with significant ascites on physical examination. 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 B12 and folic acid WNL. Continue supplements of B12 and folic acid. Monitor H&H. Supportive transfusions. (6) Tobacco dependency Is this a current diagnosis for this admission?: Yes Plan: Advised abstinence. Does not appear to be in withdrawal. Continue DT precautions. (7) Bilateral pleural effusion Is this a current diagnosis for this admission?: Yes Plan: Likely due to aggressive volume resuscitation for acute pancreatitis complicated by underlying liver cirrhosis and pneumonia. Hold IV fluids. Cautious diuresis. Repeat chest x-ray if no improvement. If worsening respiratory symptoms will consider thoracentesis. - Plan Summary Summary: 07/13/2019 Acute pancreatitis-the patient will be made n.p.o. He will get aggressive IV fluids. We will continue to monitor the serum chemistries. Pancreatitis secondary to alcoholism Abdominal pain and ascites secondary to pancreatitis and possible alcohol related hepatitis-analgesia and supportive care. Consider Aldactone after further evaluation. Alcohol-related hepatitis with hepatomegaly and ascites-the patient was warned about worsening complications from ongoing alcoholism. In view of potential withdrawal IV benzodiazepine therapy is available. Alcohol and nicotine dependency-I have prescribed a nicotine patch as needed. When the patient is feeling better I will discuss potential detox plans. Megaloblastic anemia-the patient was mildly anemic but his MCV was 111. This is likely related to his alcohol abuse. I have ordered anemia studies and the patient will likely benefit from folic acid and B12. I have asked nursing to monitor intake and output. In addition to the IV benzodiazepine therapy, IV analgesia will be available. The patient will be n.p.o. He will get aggressive IV fluids. This will include a banana bag. We will check laboratory studies daily and continue ongoing evaluation of the patient. 07/14/2019 The patient is still having a significant amount of pain. His lipase did come down by almost half. His white blood cell count went up slightly. I discussed the case with Dr. Martin. We are going to add antibiotic therapy. He lost his IV access and unfortunately he had not gotten as much IV fluid as high as ordered. I spoke to the nurse and she is going to correct this. His urine was dark and he clearly needed the fluid. The patient exhibited hypocalcemia and hypomagnesemia. I did order a ionized calcium and this was low as well. He did receive 2 g of calcium gluconate and IV magnesium sulfate. I will recheck his numbers and monitor them daily. While he is n.p.o. I will supplement by intravenous. He is still having significant pain. I did increase the narcotic analgesia for him. His anemia is stable. 07/15/2019 The patient still has significant abdominal pain. His abdomen is still tense. I did discuss with surgery his seeming lack of progress. I have added albumin infusions to try and improve oncotic pressure. His albumin has dropped below 2.0. Unfortunately he still requires large volume fluids to treat the pancreatitis. He is still strictly n.p.o. I have increased the pain regimen again. Because of thrombocytopenia I stopped the heparin. Surgery will continue to follow the patient. The concern is for developing complications. He remains on antibiotic therapy as well. We will continue to monitor his laboratory studies on a daily basis.
[2019-07-22] MEDS: OXYCODONE-ACETAMINOPHEN 5-325 MG TABLET PO PRN ×3 (03:32→19:30)
[2019-07-22] MEDS: GUAIFENESIN/CODEINE PHOS 100-10 MG/ 5 ML UDC PO PRN ×3 (04:54→16:57)
[2019-07-22 05:12] LABS: HEMATOCRIT 26.5 % (37.9-51.0); MEAN CORPUSCULAR HEMOGLOBIN 36.8 pg (27.0-33.4); MEAN CORPUSCULAR VOLUME 108 fl (80-97); PLATELET COUNT 524 10^3/uL (150-450); RED BLOOD COUNT 2.45 10^6/uL (4.35-5.55); RED CELL DISTRIBUTION WIDTH 19.4 % (11.5-14.0); WHITE BLOOD COUNT 15.8 10^3/uL (4.0-10.5)
[2019-07-22] MEDS: KETOROLAC TROMETHAMINE INJ/PF 30 MG/1 ML SDV IV PRN ×3 (07:27→21:41)
[2019-07-22] MEDS: IPRATROPIUM/ALBUTEROL 0.5-2.5 MG/3 ML AMPUL NEB SCH ×3 (08:44→20:38)
[2019-07-22] MEDS: SPIRONOLACTONE 25 MG TABLET PO SCH (09:48)
[2019-07-22] MEDS: GUAIFENESIN 600 MG TABLET.SA PO SCH ×2 (09:48→21:34)
[2019-07-22] MEDS: CEFEPIME 1 GM/D5W RTU 1 GM/50 ML RTUPB IV SCH ×2 (09:49→21:34)
[2019-07-22] MEDS: FUROSEMIDE INJ/PF 40 MG/4 ML SDV IV SCH ×2 (09:49→17:41)
--- NOTE | 2019-07-22 11:22 | PDOC PROGRESS REPORT ---
Subjective Progress Note for:: 07/22/19 Subjective:: KACY DUMAS is a 28 year old male with no significant medical or surgical history presents to the emergency department with severe abdominal pain. The patient states that his stomach had been feeling upset yesterday but he was not having any significant pain. At approximately 3 AM he was awakened with abdominal pain. It was severe. It was associated with nausea and vomiting. He denied fever or chills. He denies hematemesis. He has never had anything like this before. He admits to drinking 3 of the 22 ounce cans of beer daily and smoking 1 to 1-1/2 packs of cigarettes daily. Evaluation revealed an elevated lipase of 4981.6. Alkaline phosphatase was sli ghtly elevated at 197. ALT was normal and AST was 102. Total bilirubin was normal. His potassium was low at 3.5. His white blood cell count was elevated at 11.9 and 81% neutrophils. Hemoglobin was 11.2, hematocrit 31.9 and his MCV was elevated at 111. Diagnostic imaging shows acute pancreatitis with hepatomegaly and ascites. Surgery has seen the patient. Will admit patient to the medical service. 07/16/2019. Patient complaining of persistent abdominal pain, 4/5 associated with abdominal distention and nausea. Also noted to be hypoxic today and desaturated when ambulating. 07/17/2019. No acute events overnight. Patient endorsing some improvement of abdominal pain, 3 out of 5. Able to tolerate clear liquid. Denies any fever, chills, nausea, vomiting, diarrhea, constipation or any urinary symptoms. 07/18/2019. No acute events overnight. Abdominal pain improving, stating that it is 2 out of 5, tolerating his p.o. feeds, bowel movement yesterday. Still complaining of persistent productive cough abdominal distention and shortness of breath. Any fever, chest pain, nausea, vomiting, diarrhea, constipation or any urinary symptoms. 07/19/2019. Today patient is feeling much better, stating that shortness of breath is improving, abdominal pain is still there but improving compared to yesterday, p.o. tolerant but does not like the food in the hospital. Passing flatus has had one bowel movement. Denies any fever, chest pain, nausea, vomiting, diarrhea or any urinary symptoms. 07/20/2019. No acute events overnight. Moderate improvement of respiratory symptoms. Patient stated that he could not tolerate regular diet because it was making his abdominal distention and pain worse. Passing flatus, has had one bowel movement in the last 24 hours. Denies any fever, chills, chest pain, diarrhea or any urinary symptoms. 07/21/2019. No acute events overnight. Shortness of breath improving however still complaining of persistent abdominal distention and epigastric abdominal pain, not able to tolerate regular diet, has had 1 bowel movement the last 24 hours, denies any fever, chills, nausea, vomiting, diarrhea or any urinary symptoms. 07/22/2019. No acute events overnight. Still complaining of persistent lower pain, reporting mild improvement of abdominal swelling, cough is improving, has not been able to tolerate regular diet, has had one bowel movement since yesterday, denies any fever, shortness of breath, chills, nausea or vomiting. Unfortunately still having persistent leukocytosis. Reason For Visit: ACUTE PANCREATITIS HEPATOMEGALY ABDOMINAL PAIN Physical Exam Vital Signs: Temp Pulse Resp BP Pulse Ox 98.3 F 91 16 114/60 94 07/22/19 07:54 07/22/19 08:45 07/22/19 08:45 07/22/19 07:54 07/22/19 08:45 Intake & Output 07/21/19 07/22/19 07/23/19 06:59 06:59 06:59 Intake Total 967 1180 Output Total 1900 Balance 967 -720 Weight 77.6 kg 77.6 kg General appearance: PRESENT: no acute distress, well-developed, well-nourished Head exam: PRESENT: atraumatic Respiratory exam: PRESENT: clear to auscultation cheri, decreased breath sounds. ABSENT: rales, rhonchi, wheezes Cardiovascular exam: PRESENT: RRR. ABSENT: diastolic murmur, rubs, systolic murmur GI/Abdominal exam: PRESENT: distended, firm, normal bowel sounds. ABSENT: guarding, mass, organolmegaly, rebound, tenderness Neurological exam: PRESENT: alert, awake, oriented to person, oriented to place, oriented to time, oriented to situation, CN II-XII grossly intact. ABSENT: motor sensory deficit Results Laboratory Results: 07/22/19 04:51 07/20/19 05:19 07/22/19 04:51 WBC 15.8 H RBC 2.45 L Hgb 9.0 L Hct 26.5 L MCV 108 H MCH 36.8 H MCHC 34.0 RDW 19.4 H Plt Count 524 H Impressions: Acute Abdomen Series 07/13/19 07:18 IMPRESSION: NO RADIOGRAPHIC EVIDENCE FOR ACUTE ABDOMINAL DISEASE. Abdomen Ultrasound 07/13/19 08:37 IMPRESSION: Distended gallbladder without stones. Positive sonographic Ohara's sign. Abdomen/Pelvis CT 07/13/19 10:55 IMPRESSION: 1. Diffuse enlargement of the pancreas without evidence of pancreatic necrosis. Findings are consistent with acute pancreatitis. 2. Moderate amount of ascites in the abdomen and pelvis. No focal drainable abscess. 3. Hepatomegaly with moderate hepatic steatosis. Chest X-Ray 07/16/19 00:00 IMPRESSION: Multicentric pneumonia in the left lower lobe more than the right middle lobe. Small right pleural effusion. Chest/Abdomen CTA 07/18/19 00:00 IMPRESSION: Limited study, as above. No evidence of pulmonary embolism to the lobar level. Large bilateral pleural effusions with associated partial passive collapse of both lower lobes. Superimposed widespread bilateral groundglass opacity within both upper lobes, right middle lobe, and lingula with elements of interlobular septal thickening either indicates an underlying atypical infectious/inflammatory process (to include viral pneumonia), ARDS, acute interstitial pneumonitis and/or interstitial edema. Hepatic steatosis. Diffuse pancreatic edema with peripancreatic fluid/and premature stranding, in keeping with acute pancreatitis. TECHNICAL DOCUMENTATION: Quality ID # [id number]: Final reports with documentation of one or more dose reduction techniques (e.g., Automated exposure control, adjustment of the mA and/or kV according to patient size, use of iterative reconstruction technique) copyright 2011 [employer]- All Rights Reserved Assessment and Plan - Diagnosis (1) Acute respiratory failure with hypoxia Is this a current diagnosis for this admission?: Yes Plan: Moderate improvement. SPO2 WNL on RA. Likely due to underlying pneumonia complicated by aggressive volume resuscitation for underlying alcoholic pancreatitis in the setting of severe ascites and alcoholic cirrhosis. Continue supplemental oxygen. Duo nebs. (2) Multifocal pneumonia Is this a current diagnosis for this admission?: Yes Plan: Improving. Afebrile. Cough improving. Persistent leukocytosis. Most likely community-acquired,gram-positives including Streptococcus pneumonia. Patient is stating that he has been coughing for several months but has not seeked medical attention since his hospitalization. 07/11/2019. CTA negative for PE. Postive for bilateral pleural effusions, superimposed widespread bilateral groundglass opacities and atypical infectious process such as pneumonia, ARDS or or interstitial pneumonitis. Day 9 IV antibiotics. Day 3 IV cefepime. Received 4 days of p.o. azithromycin. Received 6 days of IV meropenem. Blood cultures no growth x24 hours. Continue back IV antibiotics. (3) Pancreatitis Qualifiers: Chronicity: acute Pancreatitis type: unspecified pancreatitis type Acute pancreatitis complication: unspecified Qualified Code(s): K85.90 - Acute pancreatitis without necrosis or infection, unspecified Is this a current diagnosis for this admission?: Yes Plan: Improving. Could not tolerate a regular diet. Has had one bowel movement. Passing flatus. This most likely to EtOH abuse. 07/11/2019. CT abdomen and pelvis. Diffuse enlargement of the pancreas without evidence of pancreatic necrosis. Moderate amount of ascites in the abdomen pelvis. No focal drainable abscess. Hepatomegaly with moderate hepatic steatosis. DC IV fluids given pleural effusion, hypoxia and underlying cirrhosis. Continue opioid and non-opioid analgesics. Antiemetics. Empiric IV antibiotics. (4) Alcoholic hepatitis with ascites Is this a current diagnosis for this admission?: Yes Plan: Mild improvement. Most likely alcoholic hepatitis given history of alcoholism. Hepatitis panel negative. Patient denies having history of cirrhosis however abdominal CT is positive for hepatomegaly and hepatic steatosis and patient has history of alcohol abuse. Patient also noted to have megaloblastic anemia and thrombocytopenia with significant ascites on physical examination. 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 B12 and folic acid WNL. Continue supplements of B12 and folic acid. Monitor H&H. Supportive transfusions. (6) Tobacco dependency Is this a current diagnosis for this admission?: Yes Plan: Advised abstinence. Does not appear to be in withdrawal. Continue DT precautions. (7) Bilateral pleural effusion Is this a current diagnosis for this admission?: Yes Plan: Improving based on physical examination. SpO2 WNL on RA. Likely due to aggressive volume resuscitation for acute pancreatitis complicated by underlying liver cirrhosis and pneumonia. Hold IV fluids. Cautious diuresis. Repeat chest x-ray if no improvement. If worsening respiratory symptoms will consider thoracentesis. - Plan Summary Summary: 07/13/2019 Acute pancreatitis-the patient will be made n.p.o. He will get aggressive IV fluids. We will continue to monitor the serum chemistries. Pancreatitis secondary to alcoholism Abdominal pain and ascites secondary to pancreatitis and possible alcohol related hepatitis-analgesia and supportive care. Consider Aldactone after further evaluation. Alcohol-related hepatitis with hepatomegaly and ascites-the patient was warned about worsening complications from ongoing alcoholism. In view of potential withdrawal IV benzodiazepine therapy is available. Alcohol and nicotine dependency-I have prescribed a nicotine patch as needed. When the patient is feeling better I will discuss potential detox plans. Megaloblastic anemia-the patient was mildly anemic but his MCV was 111. This is likely related to his alcohol abuse. I have ordered anemia studies and the patient will likely benefit from folic acid and B12. I have asked nursing to monitor intake and output. In addition to the IV benzodiazepine therapy, IV analgesia will be available. The patient will be n.p.o. He will get aggressive IV fluids. This will include a banana bag. We will check laboratory studies daily and continue ongoing evaluation of the patient. 07/14/2019 The patient is still having a significant amount of pain. His lipase did come down by almost half. His white blood cell count went up slightly. I discussed the case with Dr. Martin. We are going to add antibiotic therapy. He lost his IV access and unfortunately he had not gotten as much IV fluid as high as ordered. I spoke to the nurse and she is going to correct this. His urine was dark and he clearly needed the fluid. The patient exhibited hypocalcemia and hypomagnesemia. I did order a ionized calcium and this was low as well. He did receive 2 g of calcium gluconate and IV magnesium sulfate. I will recheck his numbers and monitor them daily. While he is n.p.o. I will supplement by intravenous. He is still having significant pain. I did increase the narcotic analgesia for him. His anemia is stable. 07/15/2019 The patient still has significant abdominal pain. His abdomen is still tense. I did discuss with surgery his seeming lack of progress. I have added albumin infusions to try and improve oncotic pressure. His albumin has dropped below 2.0. Unfortunately he still requires large volume fluids to treat the pancreatitis. He is still strictly n.p.o. I have increased the pain regimen again. Because of thrombocytopenia I stopped the heparin. Surgery will continue to follow the patient. The concern is for developing c omplications. He remains on antibiotic therapy as well. We will continue to monitor his laboratory studies on a daily basis.
[2019-07-22] MEDS: NICOTINE 21 MG/24 HR PATCH.TD24 TD PRN ×2 (11:47→21:33)
[2019-07-22] MEDS: MORPHINE SULFATE 10 MG/ML INJ IV PRN (16:57)
[2019-07-23] MEDS: OXYCODONE-ACETAMINOPHEN 5-325 MG TABLET PO PRN ×3 (07:34→20:10)
[2019-07-23] MEDS: KETOROLAC TROMETHAMINE INJ/PF 30 MG/1 ML SDV IV PRN ×3 (07:37→21:35)
[2019-07-23] MEDS: IPRATROPIUM/ALBUTEROL 0.5-2.5 MG/3 ML AMPUL NEB SCH ×3 (08:58→20:47)
[2019-07-23 09:21] LABS: HEMOGLOBIN 9.1 g/dL (13.5-17.0); MEAN CORPUSCULAR HEMOGLOBIN 36.6 pg (27.0-33.4); MEAN CORPUSCULAR HGB CONC 33.6 g/dL (32.0-36.0); MEAN CORPUSCULAR VOLUME 109 fl (80-97); PLATELET COUNT 686 10^3/uL (150-450); RED BLOOD COUNT 2.47 10^6/uL (4.35-5.55); RED CELL DISTRIBUTION WIDTH 19.3 % (11.5-14.0); WHITE BLOOD COUNT 16.4 10^3/uL (4.0-10.5)
--- NOTE | 2019-07-23 09:42 | PDOC PROGRESS REPORT ---
Subjective Progress Note for:: 07/23/19 Subjective:: KACY DUMAS is a 28 year old male with no significant medical or surgical history presents to the emergency department with severe abdominal pain. The patient states that his stomach had been feeling upset yesterday but he was not having any significant pain. At approximately 3 AM he was awakened with abdominal pain. It was severe. It was associated with nausea and vomiting. He denied fever or chills. He denies hematemesis. He has never had anything like this before. He admits to drinking 3 of the 22 ounce cans of beer daily and smoking 1 to 1-1/2 packs of cigarettes daily. Evaluation revealed an elevated lipase of 4981.6. Alkaline phosphatase was sli ghtly elevated at 197. ALT was normal and AST was 102. Total bilirubin was normal. His potassium was low at 3.5. His white blood cell count was elevated at 11.9 and 81% neutrophils. Hemoglobin was 11.2, hematocrit 31.9 and his MCV was elevated at 111. Diagnostic imaging shows acute pancreatitis with hepatomegaly and ascites. Surgery has seen the patient. Will admit patient to the medical service. 07/16/2019. Patient complaining of persistent abdominal pain, 4/5 associated with abdominal distention and nausea. Also noted to be hypoxic today and desaturated when ambulating. 07/17/2019. No acute events overnight. Patient endorsing some improvement of abdominal pain, 3 out of 5. Able to tolerate clear liquid. Denies any fever, chills, nausea, vomiting, diarrhea, constipation or any urinary symptoms. 07/18/2019. No acute events overnight. Abdominal pain improving, stating that it is 2 out of 5, tolerating his p.o. feeds, bowel movement yesterday. Still complaining of persistent productive cough abdominal distention and shortness of breath. Any fever, chest pain, nausea, vomiting, diarrhea, constipation or any urinary symptoms. 07/19/2019. Today patient is feeling much better, stating that shortness of breath is improving, abdominal pain is still there but improving compared to yesterday, p.o. tolerant but does not like the food in the hospital. Passing flatus has had one bowel movement. Denies any fever, chest pain, nausea, vomiting, diarrhea or any urinary symptoms. 07/20/2019. No acute events overnight. Moderate improvement of respiratory symptoms. Patient stated that he could not tolerate regular diet because it was making his abdominal distention and pain worse. Passing flatus, has had one bowel movement in the last 24 hours. Denies any fever, chills, chest pain, diarrhea or any urinary symptoms. 07/21/2019. No acute events overnight. Shortness of breath improving however still complaining of persistent abdominal distention and epigastric abdominal pain, not able to tolerate regular diet, has had 1 bowel movement the last 24 hours, denies any fever, chills, nausea, vomiting, diarrhea or any urinary symptoms. 07/22/2019. No acute events overnight. Still complaining of persistent lower pain, reporting mild improvement of abdominal swelling, cough is improving, has not been able to tolerate regular diet, has had one bowel movement since yesterday, denies any fever, shortness of breath, chills, nausea or vomiting. Unfortunately still having persistent leukocytosis. 07/23/2019. No acute events overnight. Still complaining of diffuse abdominal pain however able to tolerate his p.o. intake and having bowel movements, denies any fever, chills, nausea, vomiting, diarrhea, constipation or any urinary symptoms. Patient still having persistent leukocytosis with no apparent sign of infection. Reason For Visit: ACUTE PANCREATITIS HEPATOMEGALY ABDOMINAL PAIN Physical Exam Vital Signs: Temp Pulse Resp BP Pulse Ox 98.2 F 74 16 127/80 H 96 07/23/19 07:52 07/23/19 08:59 07/23/19 08:59 07/23/19 07:52 07/23/19 08:59 Intake & Output 07/22/19 07/23/19 07/24/19 06:59 06:59 06:59 Intake Total 1180 2857 Output Total 1900 1300 Balance -720 1557 Weight 77.6 kg 77.6 kg General appearance: PRESENT: no acute distress, well-developed, well-nourished Head exam: PRESENT: atraumatic, normocephalic Respiratory exam: PRESENT: clear to auscultation cheri, decreased breath sounds - Bibasilar. ABSENT: rales, rhonchi, wheezes Cardiovascular exam: PRESENT: RRR. ABSENT: diastolic murmur, rubs, systolic murmur GI/Abdominal exam: PRESENT: ascites, distended, normal bowel sounds, tenderness Rectal exam: PRESENT: deferred, tenderness - Epigastric Neurological exam: PRESENT: alert, awake, oriented to person, oriented to place, oriented to time, oriented to situation, CN II-XII grossly intact. ABSENT: motor sensory deficit Results Laboratory Results: 07/23/19 08:45 07/20/19 05:19 07/23/19 08:45 WBC 16.4 H RBC 2.47 L Hgb 9.1 L Hct 27.0 L MCV 109 H MCH 36.6 H MCHC 33.6 RDW 19.3 H Plt Count 686 H 07/17/19 16:39 Blood Blood Culture - Final NO GROWTH IN 5 DAYS 07/17/19 15:29 Blood Blood Culture - Final NO GROWTH IN 5 DAYS Impressions: Acute Abdomen Series 07/13/19 07:18 IMPRESSION: NO RADIOGRAPHIC EVIDENCE FOR ACUTE ABDOMINAL DISEASE. Abdomen Ultrasound 07/13/19 08:37 IMPRESSION: Distended gallbladder without stones. Positive sonographic Ohara's sign. Abdomen/Pelvis CT 07/13/19 10:55 IMPRESSION: 1. Diffuse enlargement of the pancreas without evidence of pancreatic necrosis. Findings are consistent with acute pancreatitis. 2. Moderate amount of ascites in the abdomen and pelvis. No focal drainable abscess. 3. Hepatomegaly with moderate hepatic steatosis. Chest X-Ray 07/16/19 00:00 IMPRESSION: Multicentric pneumonia in the left lower lobe more than the right middle lobe. Small right pleural effusion. Chest/Abdomen CTA 07/18/19 00:00 IMPRESSION: Limited study, as above. No evidence of pulmonary embolism to the lobar level. Large bilateral pleural effusions with associated partial passive collapse of both lower lobes. Superimposed widespread bilateral groundglass opacity within both upper lobes, right middle lobe, and lingula with elements of interlobular septal thickening either indicates an underlying atypical infectious/inflammatory process (to include viral pneumonia), ARDS, acute interstitial pneumonitis and/or interstitial edema. Hepatic steatosis. Diffuse pancreatic edema with peripancreatic fluid/and premature stranding, in keeping with acute pancreatitis. TECHNICAL DOCUMENTATION: Quality ID # 436: Final reports with documentation of one or more dose reduction techniques (e.g., Automated exposure control, adjustment of the mA and/or kV according to patient size, use of iterative reconstruction technique) copyright 2011 [employer]- All Rights Reserved Assessment and Plan - Diagnosis (1) Multifocal pneumonia Is this a current diagnosis for this admission?: Yes Plan: Improving. Afebrile. Cough improving. Persistent leukocytosis. Most likely community-acquired,gram-positives including Streptococcus pneumonia. Patient is stating that he has been coughing for several months but has not seeked medical attention since his hospitalization. 07/11/2019. CTA negative for PE. Postive for bilateral pleural effusions, superimposed widespread bilateral groundglass opacities and atypical infectious process such as pneumonia, ARDS or or interstitial pneumonitis. Day 10 IV antibiotics. Day 1 IV levofloxacin. Day 1 IV metronidazole. Received 3 days of IV cefepime. Received 4 days of p.o. azithromycin. Received 6 days of IV meropenem. Blood cultures no growth x24 hours. Continue back IV antibiotics. (2) Pancreatitis Qualifiers: Chronicity: acute Pancreatitis type: unspecified pancreatitis type Acute pancreatitis complication: unspecified Qualified Code(s): K85.90 - Acute pancreatitis without necrosis or infection, unspecified Is this a current diagnosis for this admission?: Yes Plan: Improving. Tolerating p.o. intake. Still complaining of persistent epigastric/hypogastric abdominal pain. Has had one bowel movement. Passing flatus. This most likely to EtOH abuse. 07/11/2019. CT abdomen and pelvis. Diffuse enlargement of the pancreas without evidence of pancreatic necrosis. Moderate amount of ascites in the abdomen pelvis. No focal drainable abscess. Hepatomegaly with moderate hepatic steatosis. DC IV fluids given pleural effusion, hypoxia and underlying cirrhosis. Continue opioid and non-opioid analgesics. Antiemetics. Empiric IV antibiotics. (3) Alcoholic hepatitis with ascites Is this a current diagnosis for this admission?: Yes Plan: Mild improvement. Most likely alcoholic hepatitis given history of alcoholism. Hepatitis panel negative. Patient denies having history of cirrhosis however abdominal CT is positive for hepatomegaly and hepatic steatosis and patient has history of alcohol abuse. Patient also noted to have megaloblastic anemia and thrombocytopenia with significant ascites on physical examination. (4) Megaloblastic anemia due to alcoholism Is this a current diagnosis for this admission?: Yes Plan: Due to alcoholism. B12 and folic acid WNL. Continue supplements of B12 and folic acid. Monitor H&H. Supportive transfusions. (5) Tobacco dependency Is this a current diagnosis for this admission?: Yes Plan: Advised abstinence. Does not appear to be in withdrawal. Continue DT precautions. (6) Bilateral pleural effusion Is this a current diagnosis for this admission?: Yes Plan: Improving based on physical examination. SpO2 WNL on RA. Likely due to aggressive volume resuscitation for acute pancreatitis complicated by underlying liver cirrhosis and pneumonia. Hold IV fluids. Cautious diuresis. Repeat chest x-ray if no improvement. If worsening respiratory symptoms will consider thoracentesis. (7) Acute respiratory failure with hypoxia Is this a current diagnosis for this admission?: Yes Plan: Resolved. SPO2 WNL on RA. Likely due to underlying pneumonia complicated by aggressive volume resuscitation for underlying alcoholic pancreatitis in the setting of severe ascites and alcoholic cirrhosis. - Plan Summary Summary: 07/13/2019 Acute pancreatitis-the patient will be made n.p.o. He will get aggressive IV fluids. We will continue to monitor the serum chemistries. Pancreatitis secondary to alcoholism Abdominal pain and ascites secondary to pancreatitis and possible alcohol related hepatitis-analgesia and supportive care. Consider Aldactone after further evaluation. Alcohol-related hepatitis with hepatomegaly and ascites-the patient was warned about worsening complications from ongoing alcoholism. In view of potential withdrawal IV benzodiazepine therapy is available. Alcohol and nicotine dependency-I have prescribed a nicotine patch as needed. When the patient is feeling better I will discuss potential detox plans. Megaloblastic anemia-the patient was mildly anemic but his MCV was 111. This is likely related to his alcohol abuse. I have ordered anemia studies and the patient will likely benefit from folic acid and B12. I have asked nursing to monitor intake and output. In addition to the IV benzodiazepine therapy, IV analgesia will be available. The patient will be n.p.o. He will get aggressive IV fluids. This will include a banana bag. We will check laboratory studies daily and continue ongoing evaluation of the patient. 07/14/2019 The patient is still having a significant amount of pain. His lipase did come down by almost half. His white blood cell count went up slightly. I discussed the case with Dr. Martin. We are going to add antibiotic therapy. He lost his IV access and unfortunately he had not gotten as much IV fluid as high as ordered. I spoke to the nurse and she is going to correct this. His urine was dark and he clearly needed the fluid. The patient exhibited hypocalcemia and hypomagnesemia. I did order a ionized calcium and this was low as well. He did receive 2 g of calcium gluconate and IV magnesium sulfate. I will recheck his numbers and monitor them daily. While he is n.p.o. I will supplement by intravenous. He is still having significant pain. I did increase the narcotic analgesia for him. His anemia is stable. 07/15/2019 The patient still has significant abdominal pain. His abdomen is still tense. I did discuss with surgery his seeming lack of progress. I have added albumin infusions to try and improve oncotic pressure. His albumin has dropped below 2.0. Unfortunately he still requires large volume fluids to treat the pancreatitis. He is still strictly n.p.o. I have increased the pain regimen again. Because of thrombocytopenia I stopped the heparin. Surgery will continue to follow the patient. The concern is for developing complications. He remains on antibiotic therapy as well. We will continue to monitor his laboratory studies on a daily basis.
[2019-07-23] MEDS: GUAIFENESIN/CODEINE PHOS 100-10 MG/ 5 ML UDC PO PRN ×2 (09:44→17:19)
[2019-07-23] MEDS: SPIRONOLACTONE 25 MG TABLET PO SCH (09:48)
[2019-07-23] MEDS: GUAIFENESIN 600 MG TABLET.SA PO SCH ×2 (09:48→21:37)
[2019-07-23] MEDS: FUROSEMIDE INJ/PF 40 MG/4 ML SDV IV SCH ×2 (09:48→17:13)
[2019-07-23] MEDS: LEVOFLOXACIN 750 MG TABLET PO SCH (10:00)
[2019-07-23] MEDS: MORPHINE SULFATE 10 MG/ML INJ IV PRN ×3 (10:58→21:46)
--- NOTE | 2019-07-23 11:25 | RADIOLOGY REPORT (SQ) ---
EXAM DESCRIPTION: CHEST 2 VIEWS COMPLETED DATE/TIME: 07/23/2019 10:31 am REASON FOR STUDY: f/u pleural effusion COMPARISON: 07/16/2019. EXAM PARAMETERS: NUMBER OF VIEWS: two views TECHNIQUE: Digital Frontal and Lateral radiographic views of the chest acquired. RADIATION DOSE: NA LIMITATIONS: none FINDINGS: LUNGS AND PLEURA: Scattered airspace disease, slightly improved. Bilateral pleural effusi ons also appear slightly smaller. MEDIASTINUM AND HILAR STRUCTURES: No masses or contour abnormalities. HEART AND VASCULAR STRUCTURES: Heart normal size. No evidence for failure. BONES: No acute findings. HARDWARE: None in the chest. OTHER: No other significant finding. IMPRESSION: SCATTERED AIRSPACE DISEASE AND BILATERAL PLEURAL EFFUSIONS, SLIGHT IMPROVEMENT SINCE JOVON OR STUDY. TECHNICAL DOCUMENTATION: JOB ID: [id number] 2010 [employer]- All Rights Reserved Reading location - IP/workstation name: [email or web address]
[2019-07-23] MEDS: METRONIDAZOLE 500 MG TABLET PO SCH ×2 (15:40→21:46)
[2019-07-24] MEDS: METRONIDAZOLE 500 MG TABLET PO SCH ×3 (05:31→22:01)
[2019-07-24] MEDS: OXYCODONE-ACETAMINOPHEN 5-325 MG TABLET PO PRN ×3 (06:51→20:26)
[2019-07-24] MEDS: KETOROLAC TROMETHAMINE INJ/PF 30 MG/1 ML SDV IV PRN ×3 (06:51→20:25)
[2019-07-24 08:14] LABS: HEMATOCRIT 27.5 % (37.9-51.0); HEMOGLOBIN 9.1 g/dL (13.5-17.0); MEAN CORPUSCULAR HEMOGLOBIN 35.9 pg (27.0-33.4); MEAN CORPUSCULAR HGB CONC 33.3 g/dL (32.0-36.0); MEAN CORPUSCULAR VOLUME 108 fl (80-97); PLATELET COUNT 743 10^3/uL (150-450); RED BLOOD COUNT 2.55 10^6/uL (4.35-5.55); RED CELL DISTRIBUTION WIDTH 19.7 % (11.5-14.0); WHITE BLOOD COUNT 17.8 10^3/uL (4.0-10.5)
[2019-07-24] MEDS: GUAIFENESIN/CODEINE PHOS 100-10 MG/ 5 ML UDC PO PRN ×3 (08:17→18:47)
[2019-07-24] MEDS: NICOTINE 21 MG/24 HR PATCH.TD24 TD PRN (08:17)
[2019-07-24 08:32] LABS: ANION GAP 16 (5-19); BLOOD UREA NITROGEN 26 mg/dL (7-20); CALCIUM 10.5 mg/dL (8.4-10.2); CARBON DIOXIDE 28 mmol/L (22-30); CHLORIDE 97 mmol/L (98-107); GLUCOSE 110 mg/dL (75-110); POTASSIUM 4.8 mmol/L (3.6-5.0)
[2019-07-24 08:46] LABS: ABSOLUTE LYMPHOCYTES# (MANUAL) 1.6 10^3/uL (0.5-4.7); ABSOLUTE MONOCYTES # (MANUAL) 0.9 10^3/uL (0.1-1.4); BASOPHILS % (MANUAL) 0 % (0-2); EOSINOPHILS % (MANUAL) 2 % (0-6); LYMPHOCYTES % (MANUAL) 8 % (13-45); MONOCYTES % (MANUAL) 5 % (3-13); SEGMENTED NEUTROPHILS % (MAN) 82 % (42-78); TOTAL CELLS COUNTED 100
[2019-07-24 08:50] LABS: ANISOCYTOSIS 2+; POIKILOCYTOSIS SLIGHT; POLYCHROMASIA 1+; TOXIC GRANULATION SLIGHT
[2019-07-24] MEDS: IPRATROPIUM/ALBUTEROL 0.5-2.5 MG/3 ML AMPUL NEB SCH ×3 (08:50→20:17)
[2019-07-24 08:51] LABS: OVALOCYTES SLIGHT; PLATELET COMMENT INCREASED; PLATELET LARGE PRESENT; SCHISTOCYTES SLIGHT; TEAR DROP CELLS SLIGHT
[2019-07-24 08:55] LABS: PROMYELOCYTES % (MANUAL) 2 % (0)
[2019-07-24] MEDS ORDERED: FUROSEMIDE 40 MG TABLET PO SCH (10:00)
[2019-07-24] MEDS: GUAIFENESIN 600 MG TABLET.SA PO SCH ×2 (10:48→22:03)
[2019-07-24] MEDS: LEVOFLOXACIN 750 MG TABLET PO SCH (10:48)
[2019-07-24] MEDS: MORPHINE SULFATE 10 MG/ML INJ IV PRN ×2 (10:49→17:17)
--- NOTE | 2019-07-24 16:14 | RADIOLOGY REPORT (SQ) ---
EXAM DESCRIPTION: CT ABDOMEN IV CONTRAST ONLY COMPLETED DATE/TIME: 07/24/2019 2:17 pm REASON FOR STUDY: Persistent abd pain and worsening leukocytosis COMPARISON: CT of the abdomen pelvis with contrast from 07/13/2019 TECHNIQUE: CT scan of the abdomen performed with intravenous and without oral contrast using helical scanning technique with dynamic intravenous contrast injection. Images reviewed with lung, soft tiss ue, and bone windows. Reconstructed coronal and sagittal MPR images reviewed. Delayed images for eval uation of the urinary system also acquired and evaluated. All images stored on PACS. All CT scanners at this facility use dose modulation, iterative reconstruc tion, and/or weight based dosing when appropriate to reduce radiation dose to as low as reasonably ac hievable (ALARA). [facility]: Dose Right [facility]: CareDose [facility]: Dose Right [facility]: Teradose 4D [facility]: [employer] CONTRAST TYPE AND DOSE: Contrast/concentration: Isovue 350.00 mg/ml; Total Contrast Delivered: 63.0 ml; Total Saline Delivered: 65.0 ml RENAL FUNCTION: Creatinine 0.93 mg per dL. RADIATION DOSE: CT Rad equipment meets quality standard of care and radiation dose reduction techniq ues were employed. CTDIvol: 4.9 - 4.9 mGy. DLP: 344 mGy-cm. LIMITATIONS: None. FINDINGS: LOWER CHEST: Trace bilateral pleural effusions and consolidative opacities with air bronch ograms in the basal segments of the lower lobes. There is no pericardial effusion or cardiomegaly. LIVER: The relative hypoattenuation of hepatic parenchyma compared to the splenic parenchyma on the p ortal venous phase is suggestive of hepatic steatosis. SPLEEN: The spleen is normal in size. PANCREAS: There is an acute peripancreatic fluid collection (APFC) that encases the pancreas and on t he left extends into the left lower quadrant along the anterior pararenal space. There is discernibl e pancreatic enhancement defect or ductal dilation. GALLBLADDER: The gallbladder is contracted. ADRENAL GLANDS: No mass or asymmetry. RIGHT KIDNEY AND URETER: No solid mass, hydronephrosis or nephrolithiasis. LEFT KIDNEY AND URETER: No solid mass, hydronephrosis or nephrolithiasis. AORTA AND VESSELS: No aneurysm of the abdominal aorta. The splenic artery and vein are patent. RETROPERITONEUM: No retroperitoneal adenopathy, hemorrhage or mass BOWEL AND PERITONEAL CAVITY: The stomach is distended and filled with ingested material. There are n o dilated loops of bowel or differential air-fluid levels. ABDOMINAL WALL: No masses or hernias. BONES: No acute findings. OTHER: No other finding. IMPRESSION: 1. Acute peripancreatic fluid collection (APFC) that encases the pancreas and on the lef t extends into the left lower quadrant along the anterior pararenal space. There is discernible pancr eatic enhancement defect or ductal dilation. 2. Trace bilateral pleural effusions and consolidative opacities with air bronchograms in the basal s egments of the lower lobes that could represent atelectasis or an infection. TECHNICAL DOCUMENTATION: JOB ID: [id number] Quality ID # 436: Final reports with documentation of one or more dose reduction techniques (e.g., Au tomated exposure control, adjustment of the mA and/or kV according to patient size, use of iterative reconstruction technique) 2010 [employer]- All Rights Reserved Reading location - IP/workstation name: [email or web address]
--- NOTE | 2019-07-24 18:47 | PDOC PROGRESS REPORT ---
Subjective Progress Note for:: 07/24/19 Subjective:: KACY DUMAS is a 28 year old male with no significant medical or surgical history presents to the emergency department with severe abdominal pain. The patient states that his stomach had been feeling upset yesterday but he was not having any significant pain. At approximately 3 AM he was awakened with abdominal pain. It was severe. It was associated with nausea and vomiting. He denied fever or chills. He denies hematemesis. He has never had anything like this before. He admits to drinking 3 of the 22 ounce cans of beer daily and smoking 1 to 1-1/2 packs of cigarettes daily. Evaluation revealed an elevated lipase of 4981.6. Alkaline phosphatase was sli ghtly elevated at 197. ALT was normal and AST was 102. Total bilirubin was normal. His potassium was low at 3.5. His white blood cell count was elevated at 11.9 and 81% neutrophils. Hemoglobin was 11.2, hematocrit 31.9 and his MCV was elevated at 111. Diagnostic imaging shows acute pancreatitis with hepatomegaly and ascites. Surgery has seen the patient. Will admit patient to the medical service. 07/16/2019. Patient complaining of persistent abdominal pain, 4/5 associated with abdominal distention and nausea. Also noted to be hypoxic today and desaturated when ambulating. 07/17/2019. No acute events overnight. Patient endorsing some improvement of abdominal pain, 3 out of 5. Able to tolerate clear liquid. Denies any fever, chills, nausea, vomiting, diarrhea, constipation or any urinary symptoms. 07/18/2019. No acute events overnight. Abdominal pain improving, stating that it is 2 out of 5, tolerating his p.o. feeds, bowel movement yesterday. Still complaining of persistent productive cough abdominal distention and shortness of breath. Any fever, chest pain, nausea, vomiting, diarrhea, constipation or any urinary symptoms. 07/19/2019. Today patient is feeling much better, stating that shortness of breath is improving, abdominal pain is still there but improving compared to yesterday, p.o. tolerant but does not like the food in the hospital. Passing flatus has had one bowel movement. Denies any fever, chest pain, nausea, vomiting, diarrhea or any urinary symptoms. 07/20/2019. No acute events overnight. Moderate improvement of respiratory symptoms. Patient stated that he could not tolerate regular diet because it was making his abdominal distention and pain worse. Passing flatus, has had one bowel movement in the last 24 hours. Denies any fever, chills, chest pain, diarrhea or any urinary symptoms. 07/21/2019. No acute events overnight. Shortness of breath improving however still complaining of persistent abdominal distention and epigastric abdominal pain, not able to tolerate regular diet, has had 1 bowel movement the last 24 hours, denies any fever, chills, nausea, vomiting, diarrhea or any urinary symptoms. 07/22/2019. No acute events overnight. Still complaining of persistent lower pain, reporting mild improvement of abdominal swelling, cough is improving, has not been able to tolerate regular diet, has had one bowel movement since yesterday, denies any fever, shortness of breath, chills, nausea or vomiting. Unfortunately still having persistent leukocytosis. 07/23/2019. No acute events overnight. Still complaining of diffuse abdominal pain however able to tolerate his p.o. intake and having bowel movements, denies any fever, chills, nausea, vomiting, diarrhea, constipation or any urinary symptoms. Patient still having persistent leukocytosis with no apparent sign of infection. 07/24/2019. No acute events overnight. Tolerating p.o. still having some abdominal pain with persistent distention, shortness of breath improving, on room air, denies any fever, chills, nausea, diarrhea, diarrhea, constipation or enuresis. Unfortunately patient is still having persistent leukocytosis CT abdomen with contrast shows acute peripancreatic fluid collection. I have consulted [facility] for either possible transfer or further recommendation but have not received a call back. Reason For Visit: ACUTE PANCREATITIS HEPATOMEGALY ABDOMINAL PAIN Physical Exam Vital Signs: Temp Pulse Resp BP Pulse Ox 97.8 F 99 17 130/53 H 95 07/24/19 15:10 07/24/19 15:10 07/24/19 15:10 07/24/19 15:10 07/24/19 15:10 Intake & Output 07/23/19 07/24/19 07/25/19 06:59 06:59 06:59 Intake Total 2857 2037 Output Total 1300 1600 Balance 1557 437 Weight 77.6 kg 54.9 kg General appearance: PRESENT: no acute distress, well-developed, well-nourished Head exam: PRESENT: atraumatic, normocephalic Respiratory exam: PRESENT: clear to auscultation cheri. ABSENT: rales, rhonchi, wheezes Cardiovascular exam: PRESENT: RRR. ABSENT: diastolic murmur, rubs, systolic murmur GI/Abdominal exam: PRESENT: distended, normal bowel sounds, soft, tenderness. ABSENT: guarding, mass, organolmegaly, rebound Neurological exam: PRESENT: alert, awake, oriented to person, oriented to place, oriented to time, oriented to situation, CN II-XII grossly intact. ABSENT: motor sensory deficit Results Laboratory Results: 07/24/19 07:54 07/24/19 07:54 07/24/19 07/24/19 07:54 07:54 WBC 17.8 H RBC 2.55 L Hgb 9.1 L Hct 27.5 L MCV 108 H MCH 35.9 H MCHC 33.3 RDW 19.7 H Plt Count 743 H Seg Neutrophils % Not Reportable Sodium 140.5 Potassium 4.8 Chloride 97 L Carbon Dioxide 28 Anion Gap 16 BUN 26 H Creatinine 0.93 Est GFR ( Amer) > 60 Glucose 110 Calcium 10.5 H Impressions: Acute Abdomen Series 07/13/19 07:18 IMPRESSION: NO RADIOGRAPHIC EVIDENCE FOR ACUTE ABDOMINAL DISEASE. Abdomen Ultrasound 07/13/19 08:37 IMPRESSION: Distended gallbladder without stones. Positive sonographic Ohara's sign. Abdomen/Pelvis CT 07/13/19 10:55 IMPRESSION: 1. Diffuse enlargement of the pancreas without evidence of pancreatic necrosis. Findings are consistent with acute pancreatitis. 2. Moderate amount of ascites in the abdomen and pelvis. No focal drainable abscess. 3. Hepatomegaly with moderate hepatic steatosis. Chest/Abdomen CTA 07/18/19 00:00 IMPRESSION: Limited study, as above. No evidence of pulmonary embolism to the lobar level. Large bilateral pleural effusions with associated partial passive collapse of both lower lobes. Superimposed widespread bilateral groundglass opacity within both upper lobes, right middle lobe, and lingula with elements of interlobular septal thickening either indicates an underlying atypical infectious/inflammatory process (to include viral pneumonia), ARDS, acute interstitial pneumonitis and/or interstitial edema. Hepatic steatosis. Diffuse pancreatic edema with peripancreatic fluid/and premature stranding, in keeping with acute pancreatitis. TECHNICAL DOCUMENTATION: Quality ID # [id number]: Final reports with documentation of one or more dose reduction techniques (e.g., Automated exposure control, adjustment of the mA and/or kV according to patient size, use of iterative reconstruction technique) copyright 2011 [employer]- All Rights Reserved Chest X-Ray 07/23/19 00:00 IMPRESSION: SCATTERED AIRSPACE DISEASE AND BILATERAL PLEURAL EFFUSIONS, SLIGHT IMPROVEMENT SINCE PRIOR STUDY. Abdomen CT 07/24/19 10:50 IMPRESSION: 1. Acute peripancreatic fluid collection (APFC) that encases the pancreas and on the left extends into the left lower quadrant along the anterior pararenal space. There is discernible pancreatic enhancement defect or ductal dilation. 2. Trace bilateral pleural effusions and consolidative opacities with air bronchograms in the basal segments of the lower lobes that could represent atelectasis or an infection. Assessment and Plan - Diagnosis (1) Pancreatitis Qualifiers: Chronicity: acute Pancreatitis type: unspecified pancreatitis type Acute pancreatitis complication: unspecified Qualified Code(s): K85.90 - Acute pancreatitis without necrosis or infection, unspecified Is this a current diagnosis for this admission?: Yes Plan: Improving. Tolerating p.o. intake. Still complaining of persistent epi gastric/hypogastric abdominal pain. Has had one bowel movement. Passing flatus. This most likely to EtOH abuse. 07/11/2019. CT abdomen and pelvis. Diffuse enlargement of the pancreas without evidence of pancreatic necrosis. Moderate amount of ascites in the abdomen pelvis. No focal drainable abscess. Hepatomegaly with moderate hepatic steatosis. DC IV fluids given pleural effusion, hypoxia and underlying cirrhosis. Continue opioid and non-opioid analgesics. Antiemetics. Empiric IV antibiotics. (2) Multifocal pneumonia Is this a current diagnosis for this admission?: Yes Plan: Improving. Afebrile. Cough improving. Persistent leukocytosis. Most likely community-acquired,gram-positives including Streptococcus pneumonia. Patient is stating that he has been coughing for several months but has not seeked medical attention since his hospitalization. 07/11/2019. CTA negative for PE. Postive for bilateral pleural effusions, superimposed widespread bilateral groundglass opacities and atypical infectious process such as pneumonia, ARDS or or interstitial pneumonitis. Day 11 IV antibiotics. Day 2 IV levofloxacin. Day 2 IV metronidazole. Received 3 days of IV cefepime. Received 4 days of p.o. azithromycin. Received 6 days of IV meropenem. Blood cultures no growth x24 hours. Continue back IV antibiotics. (3) Alcoholic hepatitis with ascites Is this a current diagnosis for this admission?: Yes Plan: Improving. Most likely alcoholic hepatitis given history of alcoholism. Hepatitis panel negative. Patient denies having history of cirrhosis however abdominal CT is positive for hepatomegaly and hepatic steatosis and patient has history of alcohol abuse. Patient also noted to have megaloblastic anemia and thrombocytopenia with significant ascites on physical examination. (4) Megaloblastic anemia due to alcoholism Is this a current diagnosis for this admission?: Yes Plan: Due to alcoholism. B12 and folic acid WNL. Continue supplements of B12 and folic acid. Monitor H&H. Supportive transfusions. (5) Tobacco dependency Is this a current diagnosis for this admission?: Yes Plan: Advised abstinence. Does not appear to be in withdrawal. Continue DT precautions. (6) Bilateral pleural effusion Is this a current diagnosis for this admission?: Yes Plan: Improving based on physical examination. SpO2 WNL on RA. Likely due to aggressive volume resuscitation for acute pancreatitis complicated by underlying liver cirrhosis and pneumonia. Hold IV fluids. Cautious diuresis. Repeat chest x-ray if no improvement. If worsening respiratory symptoms will consider thoracentesis. (7) Acute respiratory failure with hypoxia Is this a current diagnosis for this admission?: Yes Plan: Resolved. SPO2 WNL on RA. Likely due to underlying pneumonia complicated by aggressive volume resuscitation for underlying alcoholic pancreatitis in the setting of severe ascites and alcoholic cirrhosis. - Plan Summary Summary: 07/13/2019 Acute pancreatitis-the patient will be made n.p.o. He will get aggressive IV fluids. We will continue to monitor the serum chemistries. Pancreatitis secondary to alcoholism Abdominal pain and ascites secondary to pancreatitis and possible alcohol related hepatitis-analgesia and supportive care. Consider Aldactone after further evaluation. Alcohol-related hepatitis with hepatomegaly and ascites-the patient was warned about worsening complications from ongoing alcoholism. In view of potential withdrawal IV benzodiazepine therapy is available. Alcohol and nicotine dependency-I have prescribed a nicotine patch as needed. When the patient is feeling better I will discuss potential detox plans. Megaloblastic anemia-the patient was mildly anemic but his MCV was 111. This is likely related to his alcohol abuse. I have ordered anemia studies and the patient will likely benefit from folic acid and B12. I have asked nursing to monitor intake and output. In addition to the IV benzodiazepine therapy, IV analgesia will be available. The patient will be n.p.o. He will get aggressive IV fluids. This will include a banana bag. We will check laboratory studies daily and continue ongoing evaluation of the patient. 07/14/2019 The patient is still having a significant amount of pain. His lipase did come down by almost half. His white blood cell count went up slightly. I discussed the case with Dr. Martin. We are going to add antibiotic therapy. He lost his IV access and unfortunately he had not gotten as much IV fluid as high as ordered. I spoke to the nurse and she is going to correct this. His urine was dark and he clearly needed the fluid. The patient exhibited hypocalcemia and hypomagnesemia. I did order a ionized calcium and this was low as well. He did receive 2 g of calcium gluconate and IV magnesium sulfate. I will recheck his numbers and monitor them daily. While he is n.p.o. I will supplement by intravenous. He is still having significant pain. I did increase the narcotic analgesia for him. His anemia is stable. 07/15/2019 The patient still has significant abdominal pain. His abdomen is still tense. I did discuss with surgery his seeming lack of progress. I have added albumin infusions to try and improve oncotic pressure. His albumin has dropped below 2.0. Unfortunately he still requires large volume fluids to treat the pancreatitis. He is still strictly n.p.o. I have increased the pain regimen again. Because of thrombocytopenia I stopped the heparin. Surgery will continue to follow the patient. The concern is for developing complications. He remains on antibiotic therapy as well. We will continue to monitor his laboratory studies on a daily basis.
[2019-07-25] MEDS: METRONIDAZOLE 500 MG TABLET PO SCH (05:31)
[2019-07-25] MEDS: KETOROLAC TROMETHAMINE INJ/PF 30 MG/1 ML SDV IV PRN ×3 (05:31→20:28)
[2019-07-25] MEDS: OXYCODONE-ACETAMINOPHEN 5-325 MG TABLET PO PRN ×2 (05:31→13:59)
[2019-07-25 05:45] LABS: HEMATOCRIT 26.3 % (37.9-51.0); MEAN CORPUSCULAR HEMOGLOBIN 36.5 pg (27.0-33.4); MEAN CORPUSCULAR HGB CONC 34.3 g/dL (32.0-36.0); MEAN CORPUSCULAR VOLUME 106 fl (80-97); PLATELET COUNT 775 10^3/uL (150-450); RED BLOOD COUNT 2.47 10^6/uL (4.35-5.55); RED CELL DISTRIBUTION WIDTH 20.4 % (11.5-14.0); WHITE BLOOD COUNT 19.1 10^3/uL (4.0-10.5)
[2019-07-25 06:21] LABS: ABSOLUTE LYMPHOCYTES# (MANUAL) 1.3 10^3/uL (0.5-4.7); ABSOLUTE MONOCYTES # (MANUAL) 2.5 10^3/uL (0.1-1.4); BASOPHILS % (MANUAL) 0 % (0-2); EOSINOPHILS % (MANUAL) 0 % (0-6); LYMPHOCYTES % (MANUAL) 7 % (13-45); MONOCYTES % (MANUAL) 13 % (3-13); PROMYELOCYTES % (MANUAL) 1 % (0); SEGMENTED NEUTROPHILS % (MAN) 79 % (42-78); TOTAL CELLS COUNTED 100
[2019-07-25 06:24] LABS: ANISOCYTOSIS 2+; OVALOCYTES SLIGHT; PLATELET CLUMPS PRESENT; PLATELET COMMENT INCREASED
[2019-07-25] MEDS: IPRATROPIUM/ALBUTEROL 0.5-2.5 MG/3 ML AMPUL NEB SCH ×3 (08:35→20:11)
[2019-07-25] MEDS: MORPHINE SULFATE 10 MG/ML INJ IV PRN ×3 (09:19→21:44)
[2019-07-25] MEDS: GUAIFENESIN 600 MG TABLET.SA PO SCH ×2 (09:19→21:39)
[2019-07-25] MEDS: GUAIFENESIN/CODEINE PHOS 100-10 MG/ 5 ML UDC PO PRN ×2 (09:19→19:21)
[2019-07-25] MEDS: IMIPENEM/CILASTATIN SODIUM 1,000 MG in NORMAL SALINE 250 ML IV SCH ×3 (09:20→20:28)
[2019-07-25 09:59] LABS: PATH REVIEW PATHOLOGIST REVIEWED
[2019-07-25] MEDS: NICOTINE 21 MG/24 HR PATCH.TD24 TD PRN (11:19)
--- NOTE | 2019-07-25 12:22 | PDOC TRANSFER SUMMARY ---
General Admission Date/PCP: 07/13/19 16:09 OSCAR SINGLETON MD Resuscitation Status: Do Not Resuscitate - Transfer Diagnosis (1) Pancreatitis Is this a current diagnosis for this admission?: Yes (2) Multifocal pneumonia Is this a current diagnosis for this admission?: Yes (3) Alcoholic hepatitis with ascites Is this a current diagnosis for this admission?: Yes (4) Megaloblastic anemia due to alcoholism Is this a current diagnosis for this admission?: Yes (5) Tobacco dependency Is this a current diagnosis for this admission?: Yes (6) Bilateral pleural effusion Is this a current diagnosis for this admission?: Yes (7) Acute respiratory failure with hypoxia Is this a current diagnosis for this admission?: Yes - Transfer Medications Home Medications: Omeprazole Magnesium [Prilosec Otc] 20 mg PO DAILY 07/13/19 Transfer Medications: Current Medications Albuterol/Ipratropium (Duoneb 3 Ml Ampul) 3 ml NEB [id number] [facility] Stop: 08/17/19 13:59 Last Admin: 07/25/19 08:35 Dose: 3 ml Documented by: Dextrose (Dextrose Inj 50% Syringe (25 Gm/50 Ml)) 12.5 gm IV PRN PRN; Protocol PRN Reason: FOR BG 50-69 IN ALERT PATIENT Stop: 08/12/19 17:02 Dextrose (Dextrose Inj 50% Syringe (25 Gm/50 Ml)) 25 gm IV PRN PRN; Protocol PRN Reason: See Label Comments Stop: 08/12/19 17:02 Glucagon (Glucagen Inj 1 Mg Vial) 1 mg SUBCUT PRN PRN; Protocol PRN Reason: Evaluate for BG < 70 Stop: 08/12/19 17:02 Glucose (Glutose 40% Gel 15 Gm Tube) 15 gm PO PRN PRN; Protocol PRN Reason: For BG 50-69 in Alert Patient Stop: 08/12/19 17:02 Glucose (Glutose 40% Gel 15 Gm Tube) 30 gm PO PRN PRN; Protocol PRN Reason: FOR BG < 50 IN ALERT PATIENT Stop: 08/12/19 17:02 Guaifenesin (Mucinex Sr 600 Mg Tablet.Sa) 1,200 mg PO Q12 [facility] Stop: 08/17/19 21:59 Last Admin: 07/25/19 09:19 Dose: 1,200 mg Documented by: Guaifenesin/Codeine Phosphate (Robitussin-Ac Liquid 5 Ml Udcup) 5 ml PO QIDP PRN PRN Reason: COUGH Stop: 08/17/19 13:12 Last Admin: 07/25/19 09:19 Dose: 5 ml Documented by: Imipenem/Cilastatin Sodium 1, (000 mg/ Sodium Chloride) 250 mls @ 250 mls/hr IV Q6A JAIME Stop: 08/01/19 08:59 Last Infusion: 07/25/19 10:20 Dose: Infused Documented by: Ketorolac Tromethamine (Toradol Inj/Pf 30 Mg/1 Ml Sdv) 15 mg IV Q6HP PRN PRN Reason: FOR PAIN SCALE 3-5 Stop: 07/27/19 19:08 Last Admin: 07/25/19 11:39 Dose: 15 mg Documented by: Morphine Sulfate (Morphine 10 Mg/Ml Inj) 1 mg IV Q4HP PRN PRN Reason: FOR PAIN SCALE 3-5 Stop: 07/28/19 11:00 Last Admin: 07/25/19 09:19 Dose: 1 mg Documented by: Nicotine (Nicoderm 21 Mg/24 Hr Transderm Patch) 1 each TD DAILYP PRN PRN Reason: WITHDRAWAL SYMPTOMS Stop: 08/12/19 17:10 Last Admin: 07/25/19 11:19 Dose: 1 each Documented by: Oxycodone/Acetaminophen (Percocet 5-325 Mg Tablet) 1 tab PO Q6HP PRN PRN Reason: FOR PAIN SCALE 2-3 Stop: 07/28/19 11:00 Last Admin: 07/25/19 05:31 Dose: 1 tab Documented by: Pantoprazole Sodium (Protonix [address] Tablet) 40 mg PO BID@0600,1700 [facility] Stop: 08/24/19 16:59 Promethazine HCl (Phenergan Inj 25 Mg/1 Ml Vial) 12.5 mg IV Q4HP PRN PRN Reason: UNRESOLVED NAUSEA/VOMITING Stop: 08/16/19 14:19 Sodium Chloride (Saline Flush 2.5 Ml Monoject Prefil Syrin) 2.5 ml IV Q8 JAIME Stop: 08/12/19 21:59 Last Admin: 07/25/19 05:31 Dose: 2.5 ml Documented by: - Allergies Allergies/Adverse Reactions: No Known Allergies Allergy (Unverified 01/31/19 10:40) Hospital Course Hospital Course: KACY DUMAS is a 28 year old male with no significant medical or surgical history presents to the emergency department with severe abdominal pain. The patient states that his stomach had been feeling upset yesterday but he was not having any significant pain. At approximately 3 AM he was awakened with abdominal pain. It was severe. It was associated with nausea and vomiting. He denied fever or chills. He denies hematemesis. He has never had anything like this before. He admits to drinking 3 of the 22 ounce cans of beer daily and smoking 1 to 1-1/2 packs of cigarettes daily. Evaluation revealed an elevated lipase of 4981.6. Alkaline phosphatase was slightly elevated at 197. ALT was normal and AST was 102. Total bilirubin was normal. His potassium was low at 3.5. His white blood cell count was elevated at 11.9 and 81% neutrophils. Hemoglobin was 11.2, hematocrit 31.9 and his MCV was elevated at 111. Diagnostic imaging shows acute pancreatitis with hepatomegaly and ascites. Surgery has seen the patient. Will admit patient to the medical service. (1) Pancreatitis Tolerating p.o. intake but unfortunately still complaining of persistent epigastric/hypogastric abdominal pain and worsening leukocytosis on daily labs. Repeat CT on 07/24/2019 showed acute peripancreatic fluid collection that encases the pancreas and on the left extends into the left lower quadrant along the anterior pararenal space. There is discernible pancreatic and enhancement defect or ductal dilation. CT abdomen pelvis on 07/11/2019 showed diffuse enlargement of the pancreas without evidence of pancreatic necrosis. Moderate amount of ascites in the abdomen pelvis. No focal drainable abscess. Hepatomegaly with moderate hepatic steatosis. Initially started on aggressive fluid resuscitation and empiric IV antibiotics but after he developed hypoxia, worsening ascites and lower extremity edema and repeat CT showing worsening ascites and pleural effusions his fluids were stopped and patient was started on IV Lasix. Currently on room air. Minimal ascites. Persistent epigastric tenderness and worsening leukocytosis. Day 11 IV antibiotics. Day 2 IV levofloxacin. Day 2 IV metronidazole. Received 3 days of IV cefepime. Received 4 days of p.o. azithromycin. Received 6 days of IV meropenem. Blood culture on admission negative. Repeat blood culture no growth x48 hours. Given the fact that we do not have GI consult revealing available at [facility] and the patient has been in the hospital for 12 days, still having persistent abdominal pain and worsening leukocytosis while being on empiric broad-spectrum IV antibiotics with abnormal CT finding I discussed the case with GI fellow who graciously suggested that patient may benefit from being transferred to [facility] for close monitoring by gastroenterology. I believe patient will greatly benefit from close observation and evaluation by gastroenterology. (2) Multifocal pneumonia Afebrile. Persistent leukocytosis. Sputum and blood culture culture negative. Noted to have multifocal pneumonia on chest x-ray. Was complaining of productive cough and was having persistent leukocytosis with hypoxia. Patient is stating that he has been coughing for several months but has not seeked medical attention since his hospitalization. 07/11/2019. CTA negative for PE. Postive for bilateral pleural effusions, superimposed widespread bilateral groundglass opacities and atypical infectious process such as pneumonia, ARDS or or interstitial pneumonitis. Day 11 IV antibiotics. Day 2 IV levofloxacin. Day 2 IV metronidazole. Received 3 days of IV cefepime. Received 4 days of p.o. azithromycin. Received 6 days of IV meropenem. Blood cultures negative so far. Continue back IV antibiotics. (3) Alcoholic hepatitis with ascites Improving. Most likely alcoholic hepatitis given history of alcoholism. Hepatitis panel negative. Patient denies having history of cirrhosis however abdominal CT is positive for hepatomegaly and hepatic steatosis and patient has history of alcohol abuse. Patient also noted to have megaloblastic anemia and thrombocytopenia with significant ascites on physical examination. (4) Megaloblastic anemia due to alcoholism Due to alcoholism. B12 and folic acid WNL. Continue supplements of B12 and folic acid. Monitor H&H. Supportive transfusions. (5) Tobacco dependency Advised abstinence. Does not appear to be in withdrawal. Continue DT p recautions. (6) Bilateral pleural effusion This likely due to aggressive volume resuscitation for acute pancreatitis complicated by underlying liver cirrhosis and pneumonia. Noted to be hypoxic. CT chest on 07/18/2019 showed bilateral pleural effusion. His IV fluids were DC'd and started on cautious diuresis. Repeat CT showed almost resolution of pleural effusion. Currently SPO2 WNL on RA. (7) Acute respiratory failure with hypoxia Resolved. SPO2 WNL on RA. Likely due to underlying pneumonia complicated by aggressive volume resuscita tion for underlying alcoholic pancreatitis in the setting of severe ascites and alcoholic cirrhosis. Physical Exam Vital Signs: Temp Pulse Resp BP Pulse Ox 97.6 F 101 H 16 94/44 L 97 07/25/19 07:59 07/25/19 08:35 07/25/19 08:35 07/25/19 07:59 07/25/19 08:35 Intake & Output 07/24/19 07/25/19 07/26/19 06:59 06:59 06:59 Intake Total 2037 342 250 Output Total 1600 Balance 437 342 250 Weight 54.9 kg 71.5 kg General appearance: PRESENT: no acute distress, well-developed, well-nourished Head exam: PRESENT: atraumatic, normocephalic Respiratory exam: PRESENT: clear to auscultation cheri. ABSENT: rales, rhonchi, wheezes Cardiovascular exam: PRESENT: RRR. ABSENT: diastolic murmur, rubs, systolic murmur GI/Abdominal exam: PRESENT: distended, normal bowel sounds, soft, tenderness. ABSENT: guarding, mass, organolmegaly, rebound Neurological exam: PRESENT: alert, awake, oriented to person, oriented to place, oriented to time, oriented to situation, CN II-XII grossly intact. ABSENT: motor sensory deficit Results Laboratory Results: 07/25/19 05:26 07/24/19 07:54 07/25/19 05:26 WBC 19.1 H RBC 2.47 L Hgb 9.0 L Hct 26.3 L MCV 106 H MCH 36.5 H MCHC 34.3 RDW 20.4 H Plt Count 775 H Seg Neutrophils % Not Reportable Impressions: Acute Abdomen Series 07/13/19 07:18 IMPRESSION: NO RADIOGRAPHIC EVIDENCE FOR ACUTE ABDOMINAL DISEASE. Abdomen Ultrasound 07/13/19 08:37 IMPRESSION: Distended gallbladder without stones. Positive sonographic Ohara's sign. Abdomen/Pelvis CT 07/13/19 10:55 IMPRESSION: 1. Diffuse enlargement of the pancreas without evidence of pancreatic necrosis. Findings are consistent with acute pancreatitis. 2. Moderate amount of ascites in the abdomen and pelvis. No focal drainable abscess. 3. Hepatomegaly with moderate hepatic steatosis. Chest/Abdomen CTA 07/18/19 00:00 IMPRESSION: Limited study, as above. No evidence of pulmonary embolism to the lobar level. Large bilateral pleural effusions with associated partial passive collapse of both lower lobes. Superimposed widespread bilateral groundglass opacity within both upper lobes, right middle lobe, and lingula with elements of interlobular septal thickening either indicates an underlying atypical infectious/inflammatory process (to include viral pneumonia), ARDS, acute interstitial pneumonitis and/or interstitial edema. Hepatic steatosis. Diffuse pancreatic edema with peripancreatic fluid/and premature stranding, in keeping with acute pancreatitis. TECHNICAL DOCUMENTATION: Quality ID # [id number]: Final reports with documentation of one or more dose reduction techniques (e.g., Automated exposure control, adjustment of the mA and/or kV according to patient size, use of iterative reconstruction technique) copyright 2011 [employer]- All Rights Reserved Chest X-Ray 07/23/19 00:00 IMPRESSION: SCATTERED AIRSPACE DISEASE AND BILATERAL PLEURAL EFFUSIONS, SLIGHT IMPROVEMENT SINCE PRIOR STUDY. Abdomen CT 07/24/19 10:50 IMPRESSION: 1. Acute peripancreatic fluid collection (APFC) that encases the pancreas and on the left extends into the left lower quadrant along the anterior pararenal space. There is discernible pancreatic enhancement defect or ductal dilation. 2. Trace bilateral pleural effusions and consolidative opacities with air bronch ograms in the basal segments of the lower lobes that could represent atelectasis or an infection.
[2019-07-25] MEDS: PANTOPRAZOLE SODIUM 40 MG TABLET.DR PO SCH (16:47)
[2019-07-26] MEDS: IMIPENEM/CILASTATIN SODIUM 1,000 MG in NORMAL SALINE 250 ML IV SCH ×3 (03:15→14:30)
[2019-07-26] MEDS: PANTOPRAZOLE SODIUM 40 MG TABLET.DR PO SCH ×2 (05:08→16:20)
[2019-07-26] MEDS: KETOROLAC TROMETHAMINE INJ/PF 30 MG/1 ML SDV IV PRN ×2 (06:51→14:30)
[2019-07-26] MEDS: MORPHINE SULFATE 10 MG/ML INJ IV PRN ×3 (08:23→18:06)
[2019-07-26] MEDS: IPRATROPIUM/ALBUTEROL 0.5-2.5 MG/3 ML AMPUL NEB SCH ×2 (08:38→14:15)
[2019-07-26 09:12] LABS: HEMATOCRIT 25.6 % (37.9-51.0); HEMOGLOBIN 8.8 g/dL (13.5-17.0); MEAN CORPUSCULAR HEMOGLOBIN 36.9 pg (27.0-33.4); MEAN CORPUSCULAR HGB CONC 34.6 g/dL (32.0-36.0); MEAN CORPUSCULAR VOLUME 107 fl (80-97); PLATELET COUNT 745 10^3/uL (150-450); RED CELL DISTRIBUTION WIDTH 20.4 % (11.5-14.0); WHITE BLOOD COUNT 14.5 10^3/uL (4.0-10.5)
[2019-07-26 09:54] LABS: ABSOLUTE LYMPHOCYTES# (MANUAL) 1.6 10^3/uL (0.5-4.7); ABSOLUTE MONOCYTES # (MANUAL) 0.6 10^3/uL (0.1-1.4); ANISOCYTOSIS 2+; BASOPHILS % (MANUAL) 0 % (0-2); EOSINOPHILS % (MANUAL) 1 % (0-6); LYMPHOCYTES % (MANUAL) 11 % (13-45); MONOCYTES % (MANUAL) 4 % (3-13); PLATELET COMMENT INCREASED; SEGMENTED NEUTROPHILS % (MAN) 84 % (42-78); TOTAL CELLS COUNTED 100
[2019-07-26 09:55] LABS: PLATELET LARGE PRESENT; POLYCHROMASIA SLIGHT
[2019-07-26 09:56] LABS: HYPOCHROMASIA SLIGHT
[2019-07-26] MEDS: GUAIFENESIN 600 MG TABLET.SA PO SCH (10:12)
[2019-07-26] MEDS: OXYCODONE-ACETAMINOPHEN 5-325 MG TABLET PO PRN ×2 (10:13→16:20)
[2019-07-26] MEDS: GUAIFENESIN/CODEINE PHOS 100-10 MG/ 5 ML UDC PO PRN ×2 (10:13→16:20)
[2019-07-26] MEDS: NICOTINE 21 MG/24 HR PATCH.TD24 TD PRN (10:18)
[2019-07-26] MEDS ORDERED: IPRATROPIUM/ALBUTEROL 0.5-2.5 MG/3 ML AMPUL NEB PRN (14:30)
--- NOTE | 2019-07-26 15:54 | PDOC PROGRESS REPORT ---
Subjective Progress Note for:: 07/26/19 Subjective:: KACY DUMAS is a 28 year old male with no significant medical or surgical history presents to the emergency department with severe abdominal pain. The patient states that his stomach had been feeling upset yesterday but he was not having any significant pain. At approximately 3 AM he was awakened with abdominal pain. It was severe. It was associated with nausea and vomiting. He denied fever or chills. He denies hematemesis. He has never had anything like this before. He admits to drinking 3 of the 22 ounce cans of beer daily and smoking 1 to 1-1/2 packs of cigarettes daily. Evaluation revealed an elevated lipase of 4981.6. Alkaline phosphatase was sli ghtly elevated at 197. ALT was normal and AST was 102. Total bilirubin was normal. His potassium was low at 3.5. His white blood cell count was elevated at 11.9 and 81% neutrophils. Hemoglobin was 11.2, hematocrit 31.9 and his MCV was elevated at 111. Diagnostic imaging shows acute pancreatitis with hepatomegaly and ascites. Surgery has seen the patient. Will admit patient to the medical service. 07/16/2019. Patient complaining of persistent abdominal pain, 4/5 associated with abdominal distention and nausea. Also noted to be hypoxic today and desaturated when ambulating. 07/17/2019. No acute events overnight. Patient endorsing some improvement of abdominal pain, 3 out of 5. Able to tolerate clear liquid. Denies any fever, chills, nausea, vomiting, diarrhea, constipation or any urinary symptoms. 07/18/2019. No acute events overnight. Abdominal pain improving, stating that it is 2 out of 5, tolerating his p.o. feeds, bowel movement yesterday. Still complaining of persistent productive cough abdominal distention and shortness of breath. Any fever, chest pain, nausea, vomiting, diarrhea, constipation or any urinary symptoms. 07/19/2019. Today patient is feeling much better, stating that shortness of breath is improving, abdominal pain is still there but improving compared to yesterday, p.o. tolerant but does not like the food in the hospital. Passing flatus has had one bowel movement. Denies any fever, chest pain, nausea, vomiting, diarrhea or any urinary symptoms. 07/20/2019. No acute events overnight. Moderate improvement of respiratory symptoms. Patient stated that he could not tolerate regular diet because it was making his abdominal distention and pain worse. Passing flatus, has had one bowel movement in the last 24 hours. Denies any fever, chills, chest pain, diarrhea or any urinary symptoms. 07/21/2019. No acute events overnight. Shortness of breath improving however still complaining of persistent abdominal distention and epigastric abdominal pain, not able to tolerate regular diet, has had 1 bowel movement the last 24 hours, denies any fever, chills, nausea, vomiting, diarrhea or any urinary symptoms. 07/22/2019. No acute events overnight. Still complaining of persistent lower pain, reporting mild improvement of abdominal swelling, cough is improving, has not been able to tolerate regular diet, has had one bowel movement since yesterday, denies any fever, shortness of breath, chills, nausea or vomiting. Unfortunately still having persistent leukocytosis. 07/23/2019. No acute events overnight. Still complaining of diffuse abdominal pain however able to tolerate his p.o. intake and having bowel movements, denies any fever, chills, nausea, vomiting, diarrhea, constipation or any urinary symptoms. Patient still having persistent leukocytosis with no apparent sign of infection. 07/24/2019. No acute events overnight. Tolerating p.o. still having some abdominal pain with persistent distention, shortness of breath improving, on room air, denies any fever, chills, nausea, diarrhea, diarrhea, constipation or enuresis. Unfortunately patient is still having persistent leukocytosis CT abdomen with contrast shows acute peripancreatic fluid collection. I have consulted [facility] gastroenterology for either possible transfer or further recommendation but have not received a call back. 07/26/2019. No acute events overnight. Tolerating p.o. intake. Still complaining of abdominal discomfort. On room air. WBCs are trending down. Patient is pending transfer to [facility]. Reason For Visit: ACUTE PANCREATITIS HEPATOMEGALY ABDOMINAL PAIN Physical Exam Vital Signs: Temp Pulse Resp BP Pulse Ox 98.1 F 77 16 124/52 L 97 07/26/19 12:06 07/26/19 14:15 07/26/19 14:15 07/26/19 12:06 07/26/19 14:15 Intake & Output 07/25/19 07/26/19 07/27/19 06:59 06:59 06:59 Intake Total 342 1477 500 Balance 342 1477 500 Weight 71.5 kg 72.5 kg General appearance: PRESENT: no acute distress, well-developed, well-nourished Head exam: PRESENT: atraumatic, normocephalic Respiratory exam: PRESENT: clear to auscultation cheri. ABSENT: rales, rhonchi, wheezes Cardiovascular exam: PRESENT: RRR. ABSENT: diastolic murmur, rubs, systolic murmur GI/Abdominal exam: PRESENT: distended, normal bowel sounds, soft, tenderness. ABSENT: guarding, mass, organolmegaly, rebound Neurological exam: PRESENT: alert, awake, oriented to person, oriented to place, oriented to time, oriented to situation, CN II-XII grossly intact. ABSENT: motor sensory deficit Results Laboratory Results: 07/26/19 08:45 07/24/19 07:54 07/26/19 08:45 WBC 14.5 H RBC 2.40 L Hgb 8.8 L Hct 25.6 L MCV 107 H MCH 36.9 H MCHC 34.6 RDW 20.4 H Plt Count 745 H Seg Neutrophils % Not Reportable 07/26/19 08:45 NT-Pro-B Natriuret Pep 220 H Impressions: Acute Abdomen Series 07/13/19 07:18 IMPRESSION: NO RADIOGRAPHIC EVIDENCE FOR ACUTE ABDOMINAL DISEASE. Abdomen Ultrasound 07/13/19 08:37 IMPRESSION: Distended gallbladder without stones. Positive sonographic Ohara's sign. Abdomen/Pelvis CT 07/13/19 10:55 IMPRESSION: 1. Diffuse enlargement of the pancreas without evidence of pancreatic necrosis. Findings are consistent with acute pancreatitis. 2. Moderate amount of ascites in the abdomen and pelvis. No focal drainable abscess. 3. Hepatomegaly with moderate hepatic steatosis. Chest/Abdomen CTA 07/18/19 00:00 IMPRESSION: Limited study, as above. No evidence of pulmonary embolism to the lobar level. Large bilateral pleural effusions with associated partial passive collapse of both lower lobes. Superimposed widespread bilateral groundglass opacity within both upper lobes, right middle lobe, and lingula with elements of interlobular septal thickening either indicates an underlying atypical infectious/inflammatory process (to include viral pneumonia), ARDS, acute interstitial pneumonitis and/or interstitial edema. Hepatic steatosis. Diffuse pancreatic edema with peripancreatic fluid/and premature stranding, in keeping with acute pancreatitis. TECHNICAL DOCUMENTATION: Quality ID # [id number]: Final reports with documentation of one or more dose reduction techniques (e.g., Automated exposure control, adjustment of the mA and/or kV according to patient size, use of iterative reconstruction technique) copyright 2011 [employer]- All Rights Reserved Chest X-Ray 07/23/19 00:00 IMPRESSION: SCATTERED AIRSPACE DISEASE AND BILATERAL PLEURAL EFFUSIONS, SLIGHT IMPROVEMENT SINCE PRIOR STUDY. Abdomen CT 07/24/19 10:50 IMPRESSION: 1. Acute peripancreatic fluid collection (APFC) that encases the pancreas and on the left extends into the left lower quadrant along the anterior pararenal space. There is discernible pancreatic enhancement defect or ductal dilation. 2. Trace bilateral pleural effusions and consolidative opacities with air bronchograms in the basal segments of the lower lobes that could represent atelectasis or an infection. Assessment and Plan - Diagnosis (1) Pancreatitis Qualifiers: Chronicity: acute Pancreatitis type: unspecified pancreatitis type Acute pancreatitis complication: unspecified Qualified Code(s): K85.90 - Acute pancreatitis without necrosis or infection, unspecified Is this a current diagnosis for this admission?: Yes Plan: Tolerating p.o. intake but unfortunately still complaining of persistent epigastric/hypogastric abdominal pain. Leukocytosis improving. Repeat CT on 07/24/2019 showed acute peripancreatic fluid collection that encases the pancreas and on the left extends into the left lower quadrant along the anterior pararenal space. There is discernible pancreatic and enhancement defect or ductal dilation. CT abdomen pelvis on 07/11/2019 showed diffuse enlargement of the pancreas without evidence of pancreatic necrosis. Moderate amount of ascites in the abdomen pelvis. No focal drainable abscess. Hepatomegaly with moderate hepatic steatosis. Initially started on aggressive fluid resuscitation and empiric IV antibiotics but after he developed hypoxia, worsening ascites and lower extremity edema and repeat CT showing worsening ascites and pleural effusions his fluids were stopped and patient was started on IV Lasix. Currently on room air. Minimal ascites. Persistent epigastric tenderness and worsening leukocytosis. Day 12 IV antibiotics. Day 2 IV imipenem. Received 2 days of IV levofloxacin. Received 2 days of IV metronidazole. Received 3 days of IV cefepime. Received 4 days of p.o. azithromycin. Received 6 days of IV meropenem. Blood culture on admission negative. Repeat blood culture no growth x48 hours. Given the fact that we do not have GI consult revealing available at [facility] and the patient has been in the hospital for 12 days, still having persistent abdominal pain and worsening leukocytosis while being on empiric broad-spectrum IV antibiotics with abnormal CT finding I discussed the case with GI fellow who graciously suggested that patient may benefit from being transferred to [facility] for close monitoring by gastroenterology. I believe patient will greatly benefit from close observation and evaluation by gastroenterology. (2) Multifocal pneumonia Is this a current diagnosis for this admission?: Yes Plan: Afebrile. Leukocytosis improving. Sputum and blood culture culture negative. Noted to have multifocal pneumonia on chest x-ray. Was complaining of productive cough and was having persistent leukocytosis with hypoxia. Patient is stating that he has been coughing for several months but has not seeked medical attention since his hospitalization. 07/11/2019. CTA negative for PE. Postive for bilateral pleural effusions, superimposed widespread bilateral groundglass opacities and atypical infectious process such as pneumonia, ARDS or or interstitial pneumonitis. Day 12 IV antibiotics. Received 2 days of IV levofloxacin. Received 2 days of IV metronidazole. Received 3 days of IV cefepime. Received 4 days of p.o. azithromycin. Received 6 days of IV meropenem. Blood cultures negative so far. Continue back IV antibiotics. (3) Alcoholic hepatitis with ascites Is this a current diagnosis for this admission?: Yes Plan: Improving. Most likely alcoholic hepatitis given history of alcoholism. Hepatitis panel negative. Patient denies having history of cirrhosis however abdominal CT is positive for hepatomegaly and hepatic steatosis and patient has history of alcohol abuse. Patient also noted to have megaloblastic anemia and thrombocytopenia with significant ascites on physical examination. (4) Megaloblastic anemia due to alcoholism Is this a current diagnosis for this admission?: Yes Plan: Due to alcoholism. B12 and folic acid WNL. Continue supplements of B12 and folic acid. Monitor H&H. Supportive transfusions. (5) Tobacco dependency Is this a current diagnosis for this admission?: Yes Plan: Advised abstinence. Does not appear to be in withdrawal. Continue DT preca utions. (6) Bilateral pleural effusion Is this a current diagnosis for this admission?: Yes Plan: Improving based on physical examination. SpO2 WNL on RA. Likely due to aggressive volume resuscitation for acute pancreatitis complicated by underlying liver cirrhosis and pneumonia. Hold IV fluids. Cautious diuresis. Repeat chest x-ray if no improvement. If worsening respiratory symptoms will consider thoracentesis. (7) Acute respiratory failure with hypoxia Is this a current diagnosis for this admission?: Yes Plan: Resolved. SPO2 WNL on RA. Likely due to underlying pneumonia complicated by aggressive volume resuscitation for underlying alcoholic pancreatitis in the setting of severe ascites and alcoholic cirrhosis. - Plan Summary Summary: 07/13/2019 Acute pancreatitis-the patient will be made n.p.o. He will get aggressive IV fluids. We will continue to monitor the serum chemistries. Pancreatitis secondary to alcoholism Abdominal pain and ascites secondary to pancreatitis and possible alcohol re lated hepatitis-analgesia and supportive care. Consider Aldactone after further evaluation. Alcohol-related hepatitis with hepatomegaly and ascites-the patient was warned about worsening complications from ongoing alcoholism. In view of potential withdrawal IV benzodiazepine therapy is available. Alcohol and nicotine dependency-I have prescribed a nicotine patch as needed. When the patient is feeling better I will discuss potential detox plans. Megaloblastic anemia-the patient was mildly anemic but his MCV was 111. This is likely related to his alcohol abuse. I have ordered anemia studies and the patient will likely benefit from folic acid and B12. I have asked nursing to monitor intake and output. In addition to the IV benzodiazepine therapy, IV analgesia will be available. The patient will be n.p.o. He will get aggressive IV fluids. This will include a banana bag. We will check laboratory studies daily and continue ongoing evaluation of the patient. 07/14/2019 The patient is still having a significant amount of pain. His lipase did come down by almost half. His white blood cell count went up slightly. I discussed the case with Dr. Martin. We are going to add antibiotic therapy. He lost his IV access and unfortunately he had not gotten as much IV fluid as high as ordered. I spoke to the nurse and she is going to correct this. His urine was dark and he clearly needed the fluid. The patient exhibited hypocalcemia and hypomagnesemia. I did order a ionized calcium and this was low as well. He did receive 2 g of calcium gluconate and IV magnesium sulfate. I will recheck his numbers and monitor them daily. While he is n.p.o. I will supplement by intravenous. He is still having significant pain. I did increase the narcotic analgesia for him. His anemia is stable. 07/15/2019 The patient still has significant abdominal pain. His abdomen is still tense. I did discuss with surgery his seeming lack of progress. I have added albumin infusions to try and improve oncotic pressure. His albumin has dropped below 2.0. Unfortunately he still requires large volume fluids to treat the pancreatitis. He is still strictly n.p.o. I have increased the pain regimen again. Because of thrombocytopenia I stopped the heparin. Surgery will continue to follow the patient. The concern is for developing complications. He remains on antibiotic therapy as well. We will continue to monitor his laboratory studies on a daily basis.
[2019-07-26 17:19] VITALS: BP 131/74
== END 2019-07-26 18:40 | disposition short-term general hospital (02) | DRG 438 ==
LOC: ER 06:35 → EH 16:09 → 4S 22:25
PROVIDERS: ADMIT Hospitalist; ATTEND Hospitalist
DX: K85.20 Alcohol induced acute pancreatitis without necrosis or infection (principal); J96.01 Acute respiratory failure with hypoxia; J18.9 Pneumonia, unspecified organism; J90 Pleural effusion, not elsewhere classified; K70.11 Alcoholic hepatitis with ascites; F10.20 Alcohol dependence, uncomplicated; E83.51 Hypocalcemia; E83.42 Hypomagnesemia; D53.1 Other megaloblastic anemias, not elsewhere classified; D69.6 Thrombocytopenia, unspecified; K29.70 Gastritis, unspecified, without bleeding; F17.210 Nicotine dependence, cigarettes, uncomplicated; Y90.9 Presence of alcohol in blood, level not specified
CPT/HCPCS: 36415; 36600; 71046; 71275; 74022; 74160; 74177; 76705; 80048; 80053; 80061; 80074; 80076; 81001; 82330; 82607; 82728; 82746; 82803; 82962; 83540; 83550; 83690; 83735; 83880; 85025; 85027; 85045; 85610; 85730; 87040; 87070; 87205; 94640; 94799; 96361; 96365; 96375; 96376; 99285; J0610; C9113; J0692; J0743; J1170; J1885; J1940; J2185; J2270; J2405; J2543; J3360; J3411; J3415; J3420; J3475; J3480; J3490; J7030; J7050; J7120; J7620; P9047

== ENCOUNTER 2019-09-05 20:18 | Emergency (ER) | payer SELFPAY ==
[2019-09-05] MEDS ORDERED: HYDROMORPHONE HCL INJ/PF 2 MG/ML AMPULE IV ONE ×2 (20:38→22:14)
[2019-09-05] MEDS ORDERED: ONDANSETRON HCL INJ/PF 4 MG/2 ML SDV IV ONE (20:38)
--- NOTE | 2019-09-05 20:39 | ER Document Report ---
ED Medical Screen (RME) - General Stated Complaint: FALL,BACK,BODY,RIB PAIN Primary Care Provider: SHANTELL COLEY MD [Primary Care Provider] - Follow up as needed Notes: Patient is a 29-year-old white male with a past medical history of pancreatitis who presents to the emergency department with a chief complaint of right-sided back pain and neck pain that began after a fall just prior to arrival. Patient was at the top of the 12 foot ladder cutting limbs on a tree when 1 of the limbs fell striking the ladder causing it to be pushed out underneath him. He fell straight to the ground landing on his back. He denies hitting his head or loss of consciousness. He denies any retrograde amnesia. Complains of pain with inspiration and any movement of the entire right side of the back. I have treated and performed a rapid initial assessment of this patient. A comprehensive ED assessment and evaluation of the patient, analysis of test results and completion of medical decision making process will be conducted by additional ED providers. PHYSICAL EXAMINATION: Triage nurse notified charge nurse of patient's situation and he will be moved immediately to her room. GENERAL: Awake and alert. TRAVEL OUTSIDE OF THE [place] IN LAST 30 DAYS: No - Related Data Allergies/Adverse Reactions: No Known Allergies Allergy (Unverified 01/31/19 10:40) Past Medical History Psychiatric Medical History: Reports: Hx Depression Physical Exam - Vital signs Vitals: Temp Pulse Resp BP Pulse Ox 97.9 F 87 19 109/59 L 93 09/05/19 20:25 09/05/19 20:25 09/05/19 20:25 09/05/19 20:25 09/05/19 20:25 Course - Vital Signs Vital signs: Temp Pulse Resp BP Pulse Ox 97.9 F 87 19 109/59 L 93 09/05/19 20:25 09/05/19 20:25 09/05/19 20:25 09/05/19 20:25 09/05/19 20:25 Doctor's Discharge - Discharge Referrals: SHANTELL COLEY MD [Primary Care Provider] - Follow up as needed
[2019-09-05] MEDS ORDERED: NORMAL SALINE 1000 ML 1,000 ML IV ONE (20:58)
--- NOTE | 2019-09-05 21:00 | ER Document Report ---
ED Trauma/MVC - General Chief Complaint: Back Injury Stated Complaint: FALL,BACK,BODY,RIB PAIN Time Seen by Provider: 09/05/19 20:48 Primary Care Provider: SHANTELL COLEY MD [NO LOCAL MD] - Follow up as needed Notes: Patient is a 29-year-old male that comes emergency department for chief complaint of falling off of a 12 foot ladder that he was using to cut tree limbs. He states that 1 of the limbs fell, struck the ladder, push the ladder out underneath him, he fell straight to the ground and landed on his back. He does not believe he hit his head but he is not certain. He reports neck pain and severe back pain. He denies loss of consciousness, he remembers the event, denies vomiting. He denies visual changes, focal numbness or weakness, incontinence. He is not on a blood thinner but he does admit to having alcohol in his system currently. He reports a history of pancreatitis and takes pancrea tic enzymes, denies medical history otherwise. Tetanus is not up-to-date but he denies any wounds or bleeding. TRAVEL OUTSIDE OF THE [place] IN LAST 30 DAYS: No - Related Data Allergies/Adverse Reactions: No Known Allergies Allergy (Unverified 01/31/19 10:40) Home Medications: citalopram. abilifi. med for pancreatitis Past Medical History - General Information source: Patient - Social History Smoking Status: Current Every Day Smoker Frequency of alcohol use: Heavy Lives with: Family Family History: Reviewed & Not Pertinent, CAD, Other - Asthma Patient has suicidal ideation: No Patient has homicidal ideation: No Psychiatric Medical History: Reports: Hx Depression - Immunizations Immunizations up to date: Yes Hx Diphtheria, Pertussis, Tetanus Vaccination: Yes Review of Systems - Review of Systems Constitutional: No symptoms reported EENT: No symptoms reported Cardiovascular: No symptoms reported Respiratory: See HPI Gastrointestinal: No symptoms reported Genitourinary: No symptoms reported Male Genitourinary: No symptoms reported Musculoskeletal: See HPI Skin: No symptoms reported Hematologic/Lymphatic: No symptoms reported Neurological/Psychological: No symptoms reported Physical Exam - Vital signs Vitals: Temp Pulse Resp BP Pulse Ox 97.9 F 87 19 109/59 L 93 09/05/19 20:25 09/05/19 20:25 09/05/19 20:25 09/05/19 20:25 09/05/19 20:25 - Notes Notes: GENERAL: Alert, in moderate distress and appears to be in pain with any movement, appears to be taking shallow breaths. Smells of alcohol HEAD: Normocephalic, atraumatic. EYES: Pupils equal, round, and reactive to light. Extraocular movements intact. ENT: Oral mucosa moist, tongue midline. Oropharynx unremarkable. Airway patent. Nares patent, sinuses non-tender, ear canals unremarkable, TM's intact. NECK: Full range of motion. Supple. Trachea midline. No lymphadenopathy. LUNGS: Shallow breaths but breath sounds are auscultated bilaterally with no wheezes, rales, or rhonchi. Tender over the right mid to upper chest wall. HEART: Regular rate and rhythm. No murmur ABDOMEN: Soft, non-tender. Non-distended. EXTREMITIES: Moves all 4 extremities spontaneously. No edema, normal radial and dorsalis pedis pulses bilaterally. No cyanosis. BACK: Abrasions to the left upper and left lower back with no open wounds. Very tender along the right side of the back extending around toward the front along the ribs. No cervical, thoracic, lumbar midline tenderness. No saddle anesthesia, normal distal neurovascular exam. Moves all extremities in full range of motion. NEUROLOGICAL: Alert and oriented x3. Normal speech. Cranial nerves II through XII grossly intact. Strength 5/5 in all extremities. PSYCH: Agitated SKIN: Warm, dry, normal turgor. No rashes or lesions noted. Course - Re-evaluation Re-evalutation: 09/05/19 21:23 Patient smells of alcohol and does admit to alcohol. I did hear breath sounds on both sides when evaluating patient, he does have small abrasions to the left upper back and left mid to lower back, but his pain is on the right. placing patient on a monitor. I came and put in the rest of the orders, went back to evaluate the patient, patient had already been taken to CT scan. I inquired of the nurse what his vital signs were on the monitor, unfortunately was only 91% I am concerned he had a pneumothorax. I went back to evaluate the patient in CT, he is currently on the CT scanner, placed oxygen saturation on him and this was 100%. He does not have labored breathing. He is calm and oriented. We will complete the scan because patient is not unstable or in distress although I am still concerned he has a pneumothorax. C collar has remained in place. There is a pneumothorax seen on CT chest, pending result. I showed Dr. Norwood, he recommends I call surgery. Patient is doing well on re-evaluation on the monitor, still has breath sounds, is not tachycardic, hypotensive, or hypoxic on 2 L nc. 09/05/19 21:[address] Parkinson, he will see the patient. Setting up chest tube due to traumatic cause. Radiology called, states the patient has fractures of ribs 2 through 10, right clavicle fracture, pneumothorax, pulmonary contusion. Updated Dr. Parkinson who is at bedside, he is going to put in a chest tube and recommends trauma transfer. Dr. Norwood went into room to perform procedural sedation, asked for etomidate. 09/05/19 22:35 Called and spoke with [facility], patient accepted for transfer by Dr. Rivero. 09/05/19 23:08 Transport team is at bedside, patient reevaluated bedside, he is alert, stating agreement with transport plan, he is not tachycardic, hypotensive, or hypoxic. He is not in distress. Stable for transfer/transport. - Vital Signs Vital signs: Temp Pulse Resp BP Pulse Ox 98.5 F 96 22 H 122/67 99 09/05/19 23:15 09/05/19 23:15 09/05/19 23:15 09/05/19 23:15 09/05/19 23:15 - Laboratory Result Diagrams: 09/05/19 20:49 09/05/19 20:49 Laboratory results interpreted by me: 09/05/19 09/05/19 09/05/19 20:49 20:49 22:00 WBC 19.1 H RBC 4.18 L MCV 99 H MCH 33.9 H RDW 15.2 H Absolute Neuts (auto) 14.9 H Sodium 135.9 L Potassium 3.4 L Glucose 131 H AST 150 H ALT 58 H Urine Protein 100 H Urine Blood LARGE H Ur Leukocyte Esterase SMALL H Procedures - Conscious Sedation Conscious sedation Consent obtained: Yes - consented and performed by Dr. Norwood Indication: chest tube, right side Prior complications: Procedural sedation Normal healthy pt.: P1. - ASA Classification Airway Evaluation: Normal anatomy Mallampati Classification: Class 1 Used during procedure: Suction available, IV access obtained, Pulse ox on pt., monitoring specialist on pt. Medications administered: Etomidate Reversal agents: None Complications: No Critical Care Note - Critical Care Note Total time excluding time spent on procedures (mins): 45 - Trauma, multiple rib fractures, pneumothorax, clavicle fracture, hypoxia Comments: Please allow 45 minutes of critical care time for evaluation of critically ill patient with trauma, multiple rib fractures, clavicle fracture, pneumothorax. Time spent consulting with surgery, reevaluating patient, providing symptom relief, arranging for sedation for chest tube, transferring to trauma center. Discharge - Discharge Clinical Impression: Multiple rib fractures Qualifiers: Encounter type: initial encounter Fracture type: closed Laterality: right Qualified Code(s): S22.41XA - Multiple fractures of ribs, right side, initial encounter for closed fracture Clavicle fracture Qualifiers: Encounter type: initial encounter Clavicle location: unspecified part of clavicle Fracture type: closed Fracture alignment: nondisplaced Laterality: right Qualified Code(s): S42.001A - Fracture of unspecified part of right clavicle, initial encounter for closed fracture Fall Qualifiers: Encounter type: initial encounter Qualified Code(s): W19.XXXA - Unspecified fall, initial encounter Pneumothorax Qualifiers: Pneumothorax type: traumatic Encounter type: initial encounter Qualified Code(s): S27.0XXA - Traumatic pneumothorax, initial encounter Condition: Stable Disposition: [facility] Referrals: SHANTELL COLEY MD [NO LOCAL MD] - Follow up as needed
[2019-09-05 21:09] LABS: ABSOLUTE BASOPHILS # (AUTO) 0.1 10^3/uL (0.0-0.2); ABSOLUTE EOSINOPHILS # (AUTO) 0.2 10^3/uL (0.0-0.6); ABSOLUTE NEUT (AUTO) 14.9 10^3/uL (1.7-8.2); BASOPHILS % (AUTO) 0.3 % (0-2); EOSINOPHILS % (AUTO) 0.9 % (0-6); HEMATOCRIT 41.4 % (37.9-51.0); HEMOGLOBIN 14.2 g/dL (13.5-17.0); LYMPHOCYTES % (AUTO) 15.6 % (13-45); MEAN CORPUSCULAR HEMOGLOBIN 33.9 pg (27.0-33.4); MEAN CORPUSCULAR HGB CONC 34.2 g/dL (32.0-36.0); MEAN CORPUSCULAR VOLUME 99 fl (80-97); MONOCYTES % (AUTO) 5.3 % (3-13); PLATELET COUNT 265 10^3/uL (150-450); RED BLOOD COUNT 4.18 10^6/uL (4.35-5.55); RED CELL DISTRIBUTION WIDTH 15.2 % (11.5-14.0); SEGMENTED NEUTROPHILS % (AUTO) 77.9 % (42-78); TOTAL CELLS COUNTED % (AUTO) 100 %; WHITE BLOOD COUNT 19.1 10^3/uL (4.0-10.5)
[2019-09-05 21:18] LABS: ALKALINE PHOSPHATASE 83 U/L (38-126); ANION GAP 11 (5-19); ASPARTATE AMINO TRANSFERASE 150 U/L (17-59); BILIRUBIN,TOTAL 0.3 mg/dL (0.2-1.3); BLOOD UREA NITROGEN 18 mg/dL (7-20); CALCIUM 9.8 mg/dL (8.4-10.2); CARBON DIOXIDE 25 mmol/L (22-30); CHLORIDE 100 mmol/L (98-107); GLUCOSE 131 mg/dL (75-110); POTASSIUM 3.4 mmol/L (3.6-5.0); TOTAL PROTEIN 8.2 g/dL (6.3-8.2)
[2019-09-05] MEDS ORDERED: FENTANYL CITRATE INJ/PF 100 MCG/2 ML AMPUL IV ONE (21:41)
[2019-09-05] MEDS ORDERED: ETOMIDATE INJ/PF 20 MG/10 ML SDV IV ONE (21:48)
--- NOTE | 2019-09-05 22:13 | RADIOLOGY REPORT (SQ) ---
EXAM DESCRIPTION: Noncontrast CT head CLINICAL HISTORY: 29 years Male ? head injury, ETOH TECHNIQUE: Noncontrast CT head. All CT scans at this facility use dose modulation, iterative reconstruction, and/or weight based dosing when appropriate to reduce radiation dose to as low as reasonably achievable. COMPARISON: None. FINDINGS: Exam is technically limited by motion artifact. Rodriguez matter, white matter, ventricles, and cisterns are within normal limits. No acute hemorrhage or mass effect. Visualized portions of paranasal sinuses and mastoids are clear. Visualized portions of the calvarium are within normal limits. IMPRESSION: No acute intracranial findings. Technically limited evaluation. If there is clinical concern for acute stroke, MRI brain should be considered as a more sensitive evaluation. PROCEDURE: Noncontrast CT head CLINICAL HISTORY: 29 years Male ? head injury, ETOH TECHNIQUE: Contiguous axial CT images obtained through the cervical spine without IV contrast. Coronal and sagittal reformatted images also provided. This CT exam was performed according to our departmental dose-optimization program, which includes one or more of the following dose reduction techniques: automated exposure control, adjustment of the mA and/or kV according to patient size, and/or use of iterative reconstruction technique. COMPARISON: No prior exams provided for comparison. FINDINGS: There is no acute cervical fracture or spondylolisthesis. Vertebral body and disc space heights are preserved without aggressive osseous lesion. There is no definite central canal or neural foraminal stenosis at any cervical level. No prevertebral or paraspinal soft tissue swelling. IMPRESSION: No acute cervical spine injury. The thoracic findings are separately reported.
[2019-09-05] MEDS ORDERED: LIDOCAINE 1% INJ (10 MG/ML) 10 ML MDV INJ ONE (22:25)
--- NOTE | 2019-09-05 22:30 | RADIOLOGY REPORT (SQ) ---
EXAM DESCRIPTION: CT CHEST, ABDOMEN and PELVIS WITH INTRAVENOUS CONTRAST CLINICAL HISTORY: Trauma COMPARISON: None TECHNIQUE: CT of the chest,abdomen and pelvis was performed with intravenous contrast . Oral contrast was not given. The patient was injected with 100 mL Omnipaque [address] exam was performed according to our departmental dose-optimization program, which includes one or more of the following dose reduction techniques: automated exposure control, adjustment of the mA and/or kV according to patient size, and/or use of iterative reconstruction technique. FINDINGS: There is a fracture of the distal right clavicle, in close proximity to the acromioclavicular joint. There are fractures of the right second through 10th posterior medial ribs. Findings are associated with a small right hemopneumothorax. Multiple patchy areas of groundglass opacity most severely affecting the peripheral posterior aspect of the right hemithorax are most consistent with contusion in the setting of trauma. There are no clinically significant pericardial effusions. There is no pathological axillary, supraclavicular, mediastinal or hilar lymphadenopathy. The vascular structures, including the thoracic aorta appear unremarkable, without any evidence of thoracic aortic dissection or clinically significant thoracic aortic aneurysm. The liver, spleen, pancreas, gallbladder, bilateral adrenal glands, bilateral kidneys are unremarkable in appearance. The urinary bladder appears intact. The small bowel is unremarkable. There is no CT evidence of acute appendicitis or acute diverticulitis. There is no pathological retroperitoneal or pelvic lymphadenopathy, free air or free fluid. There is no clinically significant aneurysmal dilatation of the abdominal aorta. There is no CT evidence of any clinically significant inguinal or ventral hernia. The lumbar spine appears intact. The remainder of the pelvic structures appear unremarkable. IMPRESSION: 1. Fractures of the right second through 10th posterior medial ribs with associated small right hemopneumothorax. There is suggestion of underlying pulmonary contusion. Additional processes such as infection are not excluded. Clinical correlation is advised. 2. Fracture of the distal right clavicle close proximity to the acromioclavicular joint. This report contains findings that may be critical to patient care. Findings were discussed with Dr. Marbin Umana via telephone on 09/05/2019 at 7:24 PM PST.
[2019-09-05 22:58] LABS: INTERNATIONAL RATION (INR) 0.98
[2019-09-05 22:59] LABS: APPEARANCE,URINE SLIGHTLY-CLOUDY; BILIRUBIN,URINE NEGATIVE (NEGATIVE); COLOR,URINE YELLOW; GLUCOSE, URINE NEGATIVE (NEGATIVE); KETONES,URINE NEGATIVE (NEGATIVE); LEUKOCYTE ESTERASE,URINE SMALL (NEGATIVE); NITRITE,URINE NEGATIVE (NEGATIVE); PROTEIN,URINE 100 mg/dL (NEGATIVE); URINE SPECIFIC GRAVITY 1.036; UROBILINOGEN,URINE NEGATIVE mg/dL (<2.0)
[2019-09-05 22:59] LABS: PARTIAL THROMBOPLASTIN TIME 27.8 SEC (23.5-35.8)
--- NOTE | 2019-09-05 23:05 | Operative Report ---
Operative Report DATE OF SURGERY: 09/05/19 PREOPERATIVE DIAGNOSIS: Traumatic right hemopneumothorax POSTOPERATIVE DIAGNOSIS: Same OPERATION: Insertion of right chest tube SURGEON: HERMINIO JOHNSON ANESTHESIA: LMAC TISSUE REMOVED OR ALTERED: Blood COMPLICATIONS: None ESTIMATED BLOOD LOSS: 10 cc QUANTITATIVE BLOOD LOSS: 10 INTRAOPERATIVE FINDINGS: Small amount of blood with the air came out through the chest tube immediately after placement PROCEDURE: Patient is a 29-year-old male who fell off a ladder about 12 feet and injured his back. CT scan of the chest showed fractured second to the 10th ribs posterior medial with the small amount of pneumohemothorax. After informed consent was obtained patient was placed in the semierect position on the stretcher and the right chest prepped and draped in the usual sterile fashion. Patient was then given etomidate and local anesthesia on the skin. About a 2 and half centimeter incision was made on the junction of the 6 intercostal space. For further local anesthesia infiltrated in the subcu and on the pleura just above the rib. Tissues were then bluntly dissected using hemostat. The chest cavity was subsequently entered and a small amount of air came out. A 28 Thai chest tube was then inserted the opening towards the apex and threaded a distance of about 20cm. The chest tube distally was clamped initially. Next the chest tube was then anchored to the skin with 0 silk. The chest tube was then connected to the Pleur-evac and patient asked to cough and extruded out some air and small amount of blood. Vaseline gauze was placed around chest tube and a 4 x 4 and adhesive strip placed as dressing. A adhesive placed in the connection between the chest tube and the Pleur-evac catheter. Chest x-ray was immediately done and showed chest tube in good position with minimal pneumothorax. Patient tolerated procedure well. Patient will be transferred to tertiary trauma center because of the multiple ribs together with fracture of the right clavicle.
--- NOTE | 2019-09-05 23:08 | RADIOLOGY REPORT (SQ) ---
EXAM DESCRIPTION: XR CHEST 1 VIEW COMPLETED DATE/TME: 09/05/2019 22:06 CLINICAL HISTORY: 29 years Male EVAL PNEUMOTHORAX PRIOR TO CHEST TUBE PLACEMENT COMPARISON: 09/05/2019 9:22 PM. FINDINGS: There is a small right pneumothorax is noted on CT examination. Infiltrate in the right lung base is less evident than on the CT. Left lung appears clear. The right rib fractures and clavicular fracture also not well seen on chest x-ray. IMPRESSION: Right pneumothorax similar when compared to the previous CT with infiltrate and/or contusion in the right lung base The right clavicular and rib fractures are not well appreciated
[2019-09-05 23:11] VITALS: BP 122/67
--- NOTE | 2019-09-05 23:44 | RADIOLOGY REPORT (SQ) ---
EXAM DESCRIPTION: XR CHEST 1 VIEW September 05, 2019 at 10:20 PM COMPLETED DATE/TME: 09/05/2019 10:55 PM CLINICAL HISTORY: post chest tube COMPARISON: None FINDINGS: There has been interval placement of a right chest tube. There is a small right apical pneumothorax. There is elevation of the right hemidiaphragm. EKG leads project over the chest. Cardiac silhouette is within normal limits. IMPRESSION: Interval placement of a right chest tube. Right apical pneumothorax of approximately 10%.
== END 2019-09-05 23:15 | disposition short-term general hospital (02) ==
LOC: ER 20:18
DX: S27.0XXA Traumatic pneumothorax, initial encounter (principal); S27.329A Contusion of lung, unspecified, initial encounter; S22.41XA Multiple fractures of ribs, right side, initial encounter for closed fracture; S42.034A Nondisplaced fracture of lateral end of right clavicle, initial encounter for closed fracture; S20.412A Abrasion of left back wall of thorax, initial encounter; S30.810A Abrasion of lower back and pelvis, initial encounter; M54.2 Cervicalgia; W11.XXXA Fall on and from ladder, initial encounter; Y93.H9 Activity, other involving exterior property and land maintenance, building and construction; F32.9 Major depressive disorder, single episode, unspecified; F17.200 Nicotine dependence, unspecified, uncomplicated; K85.90 Acute pancreatitis without necrosis or infection, unspecified; Z79.899 Other long term (current) drug therapy
CPT/HCPCS: 96376; 99291; 96361; 99152; 96374; 96375; 86900; 86901; 36415; 86850; 80307; 85025; 85610; 85730; 80053; 81001; 71045; 70450; 71260; 72125; 74177; 32556; J3010; J1170; J2405; J7030; J3490

== ENCOUNTER 2019-12-31 08:32 | Emergency (ER) | payer SELFPAY ==
[2019-12-31 09:40] LABS: ABSOLUTE EOSINOPHILS # (AUTO) 0.1 10^3/uL (0.0-0.6); ABSOLUTE LYMPHOCYTES (AUTO) 2.2 10^3/uL (0.5-4.7); ABSOLUTE MONOCYTES (AUTO) 1.1 10^3/uL (0.1-1.4); ABSOLUTE NEUT (AUTO) 15.3 10^3/uL (1.7-8.2); BASOPHILS % (AUTO) 0.1 % (0-2); EOSINOPHILS % (AUTO) 0.5 % (0-6); HEMATOCRIT 40.8 % (37.9-51.0); HEMOGLOBIN 13.8 g/dL (13.5-17.0); LYMPHOCYTES % (AUTO) 11.7 % (13-45); MEAN CORPUSCULAR HEMOGLOBIN 32.4 pg (27.0-33.4); MEAN CORPUSCULAR HGB CONC 33.9 g/dL (32.0-36.0); MEAN CORPUSCULAR VOLUME 96 fl (80-97); MONOCYTES % (AUTO) 5.9 % (3-13); PLATELET COUNT 209 10^3/uL (150-450); RED BLOOD COUNT 4.27 10^6/uL (4.35-5.55); RED CELL DISTRIBUTION WIDTH 16.8 % (11.5-14.0); SEGMENTED NEUTROPHILS % (AUTO) 81.8 % (42-78); TOTAL CELLS COUNTED % (AUTO) 100 %; WHITE BLOOD COUNT 18.8 10^3/uL (4.0-10.5)
[2019-12-31 09:43] LABS: APPEARANCE,URINE CLEAR; BILIRUBIN,URINE NEGATIVE (NEGATIVE); COLOR,URINE STRAW; GLUCOSE, URINE NEGATIVE (NEGATIVE); KETONES,URINE NEGATIVE (NEGATIVE); LEUKOCYTE ESTERASE,URINE TRACE (NEGATIVE); NITRITE,URINE NEGATIVE (NEGATIVE); PROTEIN,URINE NEGATIVE (NEGATIVE); URINE SPECIFIC GRAVITY 1.006; UROBILINOGEN,URINE NEGATIVE mg/dL (<2.0)
[2019-12-31 10:05] LABS: ALBUMIN 4.6 g/dL (3.5-5.0); ALKALINE PHOSPHATASE 171 U/L (38-126); ANION GAP 7 (5-19); ASPARTATE AMINO TRANSFERASE 79 U/L (17-59); BILIRUBIN,TOTAL 0.5 mg/dL (0.2-1.3); BLOOD UREA NITROGEN 9 mg/dL (7-20); CALCIUM 9.7 mg/dL (8.4-10.2); CARBON DIOXIDE 26 mmol/L (22-30); CHLORIDE 103 mmol/L (98-107); GLUCOSE 97 mg/dL (75-110); POTASSIUM 3.9 mmol/L (3.6-5.0); TOTAL PROTEIN 7.4 g/dL (6.3-8.2)
[2019-12-31] MEDS ORDERED: MORPHINE SULFATE 10 MG/ML INJ IV ONE ×2 (10:09→11:09)
[2019-12-31] MEDS ORDERED: NORMAL SALINE 1000 ML 1,000 ML IV ONE (10:09)
[2019-12-31] MEDS ORDERED: ONDANSETRON HCL INJ/PF 4 MG/2 ML SDV IV ONE (10:09)
--- NOTE | 2019-12-31 11:14 | RADIOLOGY REPORT (SQ) ---
EXAM DESCRIPTION: CT ABD/PELVIS WITH IV ONLY IMAGES COMPLETED DATE/TIME: 12/31/2019 10:49 am REASON FOR STUDY: upper abd pain/hx panc COMPARISON: 09/05/2019. TECHNIQUE: CT scan of the abdomen and pelvis performed using helical scanning technique with dynamic intravenous contrast injection. No oral contrast. Images reviewed with lung, soft tissue, and bone windows. Reconstructed coronal and sagittal MPR images reviewed. Delayed images for evaluation of the urinary system also acquired. All images stored on PACS. All CT scanners at this facility use dose modulation, iterative reconstruction, and/or weight based d osing when appropriate to reduce radiation dose to as low as reasonably achievable (ALARA). [facility]: Dose Right [facility]: CareDose [facility]: Dose Right [facility]: Teradose 4D [facility]: [employer] CONTRAST TYPE AND DOSE: contrast/concentration: Isovue 350.00 mmol/ml; Total Contrast Delivered: 75. 0 ml; Total Saline Delivered: 67.0 ml RENAL FUNCTION: BUN 9 creatinine 0.74. RADIATION DOSE: CT Rad equipment meets quality standard of care and radiation dose reduction techniq ues were employed. CTDIvol: 4.8 - 5.7 mGy. DLP: 565 mGy-cm.. LIMITATIONS: None. FINDINGS: LOWER CHEST: No significant findings. No nodules or infiltrates. LIVER: Normal size. No masses. No dilated ducts. SPLEEN: Normal size. No focal lesions. PANCREAS: No masses. No significant calcifications. Indistinct appearance of the peripancreatic soft tissues. No significant focal fluid collection. Pancreatic duct not dilated. GALLBLADDER: No identified stones by CT criteria. No inflammatory changes to suggest cholecystitis. ADRENAL GLANDS: No significant masses or asymmetry. RIGHT KIDNEY AND URETER: No solid masses. No significant calcifications. No hydronephrosis or hyd roureter. LEFT KIDNEY AND URETER: No solid masses. No significant calcifications. No hydronephrosis or hydr oureter. AORTA AND VESSELS: No aneurysm. No dissection. Renal arteries, SMA, celiac without stenosis. RETROPERITONEUM: No retroperitoneal adenopathy, hemorrhage or masses. BOWEL AND PERITONEAL CAVITY: No masses or inflammatory changes. No free fluid or peritoneal masses. APPENDIX: Normal. PELVIS: No mass. No free fluid. Normal bladder. ABDOMINAL WALL: No masses. No hernias. BONES: No significant or acute findings. OTHER: No other significant finding. IMPRESSION: 1. MILD INFLAMMATORY CHANGES INVOLVING THE PANCREAS CONSISTENT WITH ACUTE PANCREATITIS. 2. NO OTHER SIGNIFICANT OR ACUTE FINDING IN THE ABDOMEN OR PELVIS ON CT SCAN WITH IV CONTRAST. TECHNICAL DOCUMENTATION: JOB ID: [id number] Quality ID # [id number]: Final reports with documentation of one or more dose reduction techniques (e.g., Au tomated exposure control, adjustment of the mA and/or kV according to patient size, use of iterative reconstruction technique) 2010 [email or web address]- All Rights Reserved Reading location - IP/workstation name: [email or web address]
[2019-12-31 11:15] LABS: URINE AMPHETAMINES SCREEN NEGATIVE; URINE BARBITURATES SCREEN NEGATIVE; URINE BENZODIAZEPINES SCREEN NEGATIVE; URINE COCAINE SCREEN NEGATIVE; URINE MARIJUANA (THC) SCREEN NEGATIVE; URINE METHADONE SCREEN NEGATIVE; URINE PHENCYCLIDINE SCREEN NEGATIVE
--- NOTE | 2019-12-31 12:11 | ER Document Report ---
ED General - General Chief Complaint: Diarrhea Stated Complaint: ABDOMINAL PAIN/DIARRHEA Time Seen by Provider: 12/31/19 09:16 Mode of Arrival: Ambulatory Information source: Patient TRAVEL OUTSIDE OF THE [place] IN LAST 30 DAYS: No - HPI Notes: Patient presents with abdominal pain. It is primarily epigastric. It is sharp and severe. He states it feels like his previous episode of pancreatitis. He states he did drink alcohol yesterday and smoked marijuana. He states he also feels that his face has been swollen for several days. He states that he has had the abdominal pain for approximately 3 weeks. It is been constant and getting worse. It is worse with movement and better with rest. He states he is also had some vomiting and diarrhea. No known covert virus exposures. The symptoms have been primarily constant. - Related Data Allergies/Adverse Reactions: No Known Allergies Allergy (Unverified 01/31/19 10:40) Past Medical History - General Information source: Patient - Social History Smoking Status: Current Every Day Smoker Chew tobacco use (# tins/day): No Frequency of alcohol use: Occasional Drug Abuse: Marijuana Family History: Reviewed & Not Pertinent, CAD, Other - Asthma Patient has homicidal ideation: No Psychiatric Medical History: Reports: Hx Depression - Immunizations Immunizations up to date: Yes Hx Diphtheria, Pertussis, Tetanus Vaccination: Yes Review of Systems - Review of Systems Constitutional: denies: Chills, Fever Cardiovascular: denies: Chest pain, Palpitations Respiratory: denies: Cough, Short of breath -: Yes All other systems reviewed and negative Physical Exam - Vital signs Vitals: Temp Pulse Resp BP Pulse Ox 98.3 F 88 14 133/84 H 99 12/31/19 09:00 12/31/19 09:00 12/31/19 09:00 12/31/19 09:00 12/31/19 09:00 Interpretation: Normal - General General appearance: Appears well, Alert - HEENT Head: Normocephalic, Atraumatic Eyes: Normal Pupils: PERRL - Respiratory Respiratory status: No respiratory distress Chest status: Nontender Breath sounds: Normal Chest palpation: Normal - Cardiovascular Rhythm: Regular Heart sounds: Normal auscultation Murmur: No - Abdominal Inspection: Normal Distension: No distension Bowel sounds: Normal Tenderness: Tender - Mild to moderate tenderness in the epigastric area. No rebound or guarding. Organomegaly: No organomegaly - Back Back: Normal, Nontender - Extremities General upper extremity: Normal inspection, Nontender, Normal color, Normal ROM, Normal temperature General lower extremity: Normal inspection, Nontender, Normal color, Normal ROM, Normal temperature, Normal weight bearing. No: Megha's sign - Neurological Neuro grossly intact: Yes Cognition: Normal Orientation: AAOx4 [place] Coma Scale Eye Opening: Spontaneous [place] Coma Scale Verbal: Oriented Terri Coma Scale Motor: Obeys Commands [place] Coma Scale Total: 15 Speech: Normal Motor strength normal: LUE, RUE, LLE, RLE Sensory: Normal - Psychological Associated symptoms: Normal affect, Normal mood - Skin Skin Temperature: Warm Skin Moisture: Dry Skin Color: Normal Course - Re-evaluation Re-evalutation: 12/31/19 12:07 Patient presents with symptoms consistent with pancreatitis. His CT scan is consistent with pancreatitis. His lipase however is not significantly elevated although it is mildly elevated. His white blood cell count is elevated as well but there is no evidence of an obvious infection anywhere. Patient's vital signs are stable. He does feel better after fluids and pain medicine. I have discussed admission versus discharge with the patient. He states he prefers to be discharged. We are going to have a trial of being discharged home with pain medicine nausea medicine and clear liquid diet. He will return if symptoms worsen. - Vital Signs Vital signs: Temp Pulse Resp BP Pulse Ox 98.3 F 88 14 133/84 H 99 12/31/19 09:00 12/31/19 09:00 12/31/19 09:00 12/31/19 09:00 12/31/19 09:00 - Laboratory Result Diagrams: 12/31/19 09:25 12/31/19 09:25 Laboratory results interpreted by me: 12/31/19 12/31/19 12/31/19 09:25 09:25 09:25 WBC 18.8 H RBC 4.27 L RDW 16.8 H Lymph % (Auto) 11.7 L Absolute Neuts (auto) 15.3 H Seg Neutrophils % 81.8 H Sodium 136.1 L AST 79 H ALT 84 H Alkaline Phosphatase 171 H Lipase 434.3 H Ur Leukocyte Esterase TRACE H - Diagnostic Test Radiology reviewed: Image reviewed, Reports reviewed Discharge - Discharge Clinical Impression: Smoker Acute pancreatitis Qualifiers: Pancreatitis type: alcohol induced Acute pancreatitis complication: no infection or necrosis Qualified Code(s): K85.20 - Alcohol induced acute pancreatitis without necrosis or infection Condition: Stable Disposition: HOME, SELF-CARE Instructions: Pancreatitis ([facility]) Additional Instructions: Please have a clear liquid diet for the next 48 hours. If your pain is worsening or not able to be controlled at home please return the emergency department for an evaluation. Prescriptions: Hydrocodone/Acetaminophen [[place] 5-325 mg Tablet] 1 tab PO Q6 PRN 3 Days #12 tablet PRN Reason: Ondansetron [Zofran Odt 4 mg Tablet] 1 tab PO Q4H PRN 9 Days #15 tab.rapdis PRN Reason: For Nausea/Vomiting Forms: Return to Work Referrals: [facility] [Provider Group] - Follow up in 3-5 days
[2019-12-31 12:33] VITALS: BP 124/84
== END 2019-12-31 12:34 | disposition home or self-care (01) ==
LOC: ER 08:32
DX: K85.20 Alcohol induced acute pancreatitis without necrosis or infection (principal); R10.13 Epigastric pain; R10.816 Epigastric abdominal tenderness; R11.10 Vomiting, unspecified; R19.7 Diarrhea, unspecified; F17.200 Nicotine dependence, unspecified, uncomplicated; F12.10 Cannabis abuse, uncomplicated; D72.829 Elevated white blood cell count, unspecified
CPT/HCPCS: 96376; 99285; 96374; 96375; 36415; 80307 ×2; 83690; 85025; 80053; 81001; 74177; J2270; J2405; J7030

== ENCOUNTER 2020-02-08 14:30 | Inpatient (IN) | payer SELFPAY ==
[2020-02-08] MEDS ORDERED: ONDANSETRON HCL INJ/PF 4 MG/2 ML SDV IV ONE (15:01)
[2020-02-08] MEDS ORDERED: RINGERS SOLUTION,LACTATED 1,000 ML IV ONE (15:01)
[2020-02-08] MEDS ORDERED: MORPHINE SULFATE 10 MG/ML INJ IV ONE ×2 (15:01→15:59)
--- NOTE | 2020-02-08 15:01 | ER Document Report ---
ED Medical Screen (RME) - General Chief Complaint: Abdominal Pain Stated Complaint: ABDOMINAL PAIN,ANKLE SWELLING Time Seen by Provider: 02/08/20 14:55 Mode of Arrival: Wheelchair Information source: Patient Notes: HPI; 29-year-old male past medical history significant for pancreatitis presents to the emergency room with sharp stabbing abdominal pain that started last night. Decreased appetite for 2 days. Complains of nausea with vomiting. Pancreatitis secondary to alcohol abuse. Patient states he last drank "a large beer" 2 days ago. No medications for symptoms. PE: Alert and oriented x3. Mild distress noted. Lungs: Clear to auscultation without rales, rhonchi, wheezes. Heart tachycardic without murmurs, rubs, gallops. Unable to do full abdominal exam in triage. I have greeted and performed a rapid initial assessment of this patient. A comprehensive ED assessment and evaluation of the patient, analysis of test results and completion of the medical decision making process will be conducted by additional ED providers. I have specifically instructed the patient or family members with the patient to immediately return to any nursing staff should anything change in the patient's condition or with their chief complaint. TRAVEL OUTSIDE OF THE [place] IN LAST 30 DAYS: No - Related Data Allergies/Adverse Reactions: No Known Allergies Allergy (Unverified 02/08/20 14:56) Past Medical History - Social History Frequency of alcohol use: Occasional Drug Abuse: None Psychiatric Medical History: Reports: Hx Depression - Immunizations Immunizations up to date: Yes Hx Diphtheria, Pertussis, Tetanus Vaccination: Yes Physical Exam - Vital signs Vitals: Temp Pulse Resp BP Pulse Ox 98.1 F 150 H 24 H 126/98 H 98 02/08/20 14:42 02/08/20 14:42 02/08/20 14:42 02/08/20 14:42 02/08/20 14:42 Course - Vital Signs Vital signs: Temp Pulse Resp BP Pulse Ox 98.1 F 150 H 24 H 126/98 H 98 02/08/20 14:42 02/08/20 14:42 02/08/20 14:42 02/08/20 14:42 02/08/20 14:42
[2020-02-08 15:26] LABS: HEMATOCRIT 47.7 % (37.9-51.0); HEMOGLOBIN 16.8 g/dL (13.5-17.0); MEAN CORPUSCULAR HGB CONC 35.1 g/dL (32.0-36.0); MEAN CORPUSCULAR VOLUME 97 fl (80-97); PLATELET COUNT 237 10^3/uL (150-450); RED BLOOD COUNT 4.92 10^6/uL (4.35-5.55); WHITE BLOOD COUNT 25.9 10^3/uL (4.0-10.5)
[2020-02-08 15:46] LABS: ALBUMIN 4.5 g/dL (3.5-5.0); ALKALINE PHOSPHATASE 138 U/L (38-126); AMYLASE 259 U/L (30-110); ANION GAP 11 (5-19); ASPARTATE AMINO TRANSFERASE 54 U/L (17-59); BILIRUBIN,DIRECT 0.5 mg/dL (0.0-0.4); BILIRUBIN,TOTAL 1.8 mg/dL (0.2-1.3); BLOOD UREA NITROGEN 16 mg/dL (7-20); CALCIUM 9.7 mg/dL (8.4-10.2); CARBON DIOXIDE 24 mmol/L (22-30); CHLORIDE 98 mmol/L (98-107); GLUCOSE 124 mg/dL (75-110); POTASSIUM 3.6 mmol/L (3.6-5.0)
[2020-02-08 15:48] LABS: ALCOHOL < 10 mg/dL (NONE DETECTED)
--- NOTE | 2020-02-08 16:00 | ER Document Report ---
ED GI/ - General Chief Complaint: Abdominal Pain Stated Complaint: ABDOMINAL PAIN,ANKLE SWELLING Time Seen by Provider: 02/08/20 14:55 Mode of Arrival: Wheelchair Notes: HPI: 29-year-old male with known chronic pancreatitis who presents today with the onset last night of some constant epigastric "sharpness" with some radiation to back pain no real aggravating relieving factors. Positive nausea without vomiting. No fevers, diarrhea, or specific aggravating relieving factors. ROS: See HPI All other review of systems reviewed and otherwise negative Reviewed vital signs and nursing note as charted by RN. PHYSICAL EXAM: CONSTITUTIONAL: Alert and oriented and responds appropriately to questions. Well-appearing; well-nourished HEAD: Normocephalic; atraumatic EYES: Sclerae non-icteric ENT: Normal nose; no rhinorrhea; moist mucous membranes; pharynx without lesions noted NECK: Supple without meningismus; non-tender; no cervical lymphadenopathy, no masses CARD: Regular rate and rhythm; no murmurs; symmetric distal pulses RESP: Normal chest excursion without splinting or tachypnea; breath sounds clear and equal bilaterally; no wheezes, no rhonchi, no rales ABD/GI: Normal bowel sounds; non-distended; soft, tenderness to palpation of the midepigastric region with no rebound or guarding; no palpable organomegaly or masses BACK: The back appears normal and is non-tender to palpation EXT: Normal ROM in all joints; non-tender to palpation; no edema SKIN: No acute lesions noted NEURO: CN 2-12 intact; 5/5 bilateral upper and lower extremity strength with sensation intact to light touch PSYCH: The patient's mood and manner are appropriate. Grooming and personal hygiene are appropriate. TRAVEL OUTSIDE OF THE [place] IN LAST 30 DAYS: No - Related Data Allergies/Adverse Reactions: No Known Allergies Allergy (Unverified 02/08/20 14:56) Past Medical History - General Information source: Patient - Social History Smoking Status: Current Some Day Smoker Frequency of alcohol use: Occasional Drug Abuse: None Family History: Reviewed & Not Pertinent, CAD, Other - Asthma Patient has homicidal ideation: No Psychiatric Medical History: Reports: Hx Depression - Immunizations Immunizations up to date: Yes Hx Diphtheria, Pertussis, Tetanus Vaccination: Yes Physical Exam - Vital signs Vitals: Temp Pulse Resp BP Pulse Ox 98.1 F 150 H 24 H 126/98 H 98 02/08/20 14:42 02/08/20 14:42 02/08/20 14:42 02/08/20 14:42 02/08/20 14:42 Course - Re-evaluation Re-evalutation: 02/08/20 15:59 Given the above history and physical examination with the tenderness to the epigastric region, stating more pain than normal from the chronic pancreatitis, admitting to drinking alcohol 2 days ago, I will obtain a CT scan of the abdomen and pelvis to evaluate for the possibility of a pseudocyst or pancreatic necrosis. Labs and pain medications with fluids have been provided. 02/08/20 17:46 Labs and imaging as recorded. 2 L of fluid has been provided. Heart rate is currently 102. I do believe that the patient has severe pancreatitis with an elevated Traci score. I discussed this with the hospitalist. He has had me add on triglycerides. Patient will be admitted for further evaluation and treatment. - Vital Signs Vital signs: Temp Pulse Resp BP Pulse Ox 98.1 F 150 H 16 112/82 96 02/08/20 14:42 02/08/20 14:42 02/08/20 16:31 02/08/20 16:31 02/08/20 16:31 - Laboratory Result Diagrams: 02/08/20 15:09 02/08/20 15:09 Laboratory results interpreted by me: 02/08/20 02/08/20 15:09 15:09 WBC 25.9 H MCH 34.0 H RDW 15.0 H Seg Neuts % (Manual) 85 H Lymphocytes % (Manual) 8 L Abs Neuts (Manual) 22.0 H Abs Monocytes (Manual) 1.8 H Sodium 132.6 L Glucose 124 H Total Bilirubin 1.8 H Direct Bilirubin 0.5 H ALT 64 H Alkaline Phosphatase 138 H Amylase 259 H Lipase 2129.2 H Discharge - Discharge Clinical Impression: Pancreatic pseudocyst Acute pancreatitis Qualifiers: Pancreatitis type: other Acute pancreatitis complication: unspecified Qualified Code(s): K85.80 - Other acute pancreatitis without necrosis or infection Condition: Fair Disposition: ADMITTED INPATIENT Admitting Provider: Maggie (Hospitalist) Unit Admitted: Medical Floor
[2020-02-08 16:01] LABS: ABSOLUTE LYMPHOCYTES# (MANUAL) 2.1 10^3/uL (0.5-4.7); ABSOLUTE MONOCYTES # (MANUAL) 1.8 10^3/uL (0.1-1.4); BASOPHILS % (MANUAL) 0 % (0-2); EOSINOPHILS % (MANUAL) 0 % (0-6); LYMPHOCYTES % (MANUAL) 8 % (13-45); MONOCYTES % (MANUAL) 7 % (3-13); SEGMENTED NEUTROPHILS % (MAN) 85 % (42-78); TOTAL CELLS COUNTED 100
[2020-02-08 16:02] LABS: ANISOCYTOSIS SLIGHT; PLATELET COMMENT ADEQUATE
--- NOTE | 2020-02-08 17:06 | EKG REPORT ---
SEVERITY:- OTHERWISE NORMAL ECG - SINUS TACHYCARDIA : Confirmed by: Ailyn Alexander 08-Feb-2020 17:05:41
[2020-02-08] MEDS ORDERED: NORMAL SALINE 1000 ML 1,000 ML IV ONE (17:13)
[2020-02-08] MEDS ORDERED: FENTANYL CITRATE INJ/PF 100 MCG/2 ML AMPUL IV ONE (17:25)
--- NOTE | 2020-02-08 17:39 | RADIOLOGY REPORT (SQ) ---
EXAM DESCRIPTION: CT ABD/PELVIS WITH IV ONLY IMAGES COMPLETED DATE/TIME: 02/08/2020 4:19 pm REASON FOR STUDY: abdominal pain. Left upper quadrant abdominal pain. Previous history of acute pa ncreatitis in December 2019. COMPARISON: 12/31/2019. TECHNIQUE: CT scan of the abdomen and pelvis performed using helical scanning technique with dynamic intravenous contrast injection. No oral contrast. Images reviewed with lung, soft tissue, and bone windows. Reconstructed coronal and sagittal MPR images reviewed. Delayed images for evaluation of the urinary system also acquired. All images stored on PACS. All CT scanners at this facility use dose modulation, iterative reconstruction, and/or weight based d osing when appropriate to reduce radiation dose to as low as reasonably achievable (ALARA). [facility]: Dose Right [facility]: CareDose [facility]: Dose Right [facility]: Teradose 4D [facility]: MYR CONTRAST TYPE AND DOSE: contrast/concentration: Isovue 350.00 mmol/ml; Total Contrast Delivered: 73. 0 ml; Total Saline Delivered: 66.0 ml RENAL FUNCTION: GFR > 60. RADIATION DOSE: CT Rad equipment meets quality standard of care and radiation dose reduction techniq ues were employed. CTDIvol: 4.9 - 5.8 mGy. DLP: 564 mGy-cm.. LIMITATIONS: None. FINDINGS: LOWER CHEST: No significant findings. No nodules or infiltrates. LIVER: The liver is enlarged with mild diffuse hepatic steatosis, measuring 22.0 cm craniocaudal at t he midclavicular line. No focal hepatic mass. Hepatic and portal veins are patent. No biliary duct al dilation. SPLEEN: Normal size. No focal lesions. PANCREAS: The pancreas has normal contour with diffuse enlargement. No focal pancreatic mass. No pa ncreatic ductal dilation. There is peripancreatic inflammatory change and fluid, increased from prev ious. Fluid extends into the left pericolic gutter and surrounds the inferior right hepatic lobe. GALLBLADDER: No identified stones by CT criteria. No inflammatory changes to suggest cholecystitis. ADRENAL GLANDS: No significant masses or asymmetry. RIGHT KIDNEY AND URETER: No solid masses. No significant calcifications. No hydronephrosis or hyd roureter. LEFT KIDNEY AND URETER: No solid masses. No significant calcifications. No hydronephrosis or hydr oureter. AORTA AND VESSELS: No aneurysm. No dissection. Renal arteries, SMA, celiac without stenosis. RETROPERITONEUM: No retroperitoneal adenopathy, hemorrhage or masses. BOWEL AND PERITONEAL CAVITY: There is a small amount of ascites in the pericolic gutters and pelvis. No pneumoperitoneum. There is no bowel obstruction. No bowel wall thickening or inflammatory clemente e. In the anterior left upper mesenteries, there is a circumscribed 3.6 x 2.5 cm fluid collection wi th thin enhancing wall, consistent with a pancreatic pseudocyst. This is new since previous. APPENDIX: Normal. PELVIS: No mass. No free fluid. Normal bladder. ABDOMINAL WALL: No masses. No hernias. BONES: No significant or acute findings. OTHER: No other significant finding. IMPRESSION: 1. Acute pancreatitis with moderate ascites in the abdomen and pelvis. Interval development of a sanches creatic pseudocyst in the left upper abdomen mesenteries since previous. Increased ascites. 2. Hepatomegaly with mild hepatic steatosis. TECHNICAL DOCUMENTATION: JOB ID: [id number] Quality ID # [id number]: Final reports with documentation of one or more dose reduction techniques (e.g., Au tomated exposure control, adjustment of the mA and/or kV according to patient size, use of iterative reconstruction technique) 2010 [employer]- All Rights Reserved Reading location - IP/workstation name: [email or web address]
[2020-02-08] MEDS ORDERED: ACETAMINOPHEN 650 MG SUPP.RECT PR PRN (18:18)
[2020-02-08] MEDS ORDERED: DEXTROSE 50%-WATER 25 GM/50 ML DISP.SYRIN IV PRN ×2 (18:18)
[2020-02-08] MEDS ORDERED: MAG HYDROX/AL HYDROX/SIMETH SUSP 30 ML UDCUP PO PRN (18:18)
[2020-02-08] MEDS ORDERED: PROMETHAZINE HCL INJ 25 MG/1 ML VIAL IV PRN (18:18)
[2020-02-08] MEDS ORDERED: ACETAMINOPHEN 325 MG TABLET PO PRN (18:18)
[2020-02-08] MEDS ORDERED: MAGNESIUM HYDROXIDE SUSP 30 ML UDCUP PO PRN (18:18)
[2020-02-08] MEDS ORDERED: GLUCAGON,HUMAN RECOMB 1 MG INJ SUBCUT PRN (18:18)
[2020-02-08] MEDS ORDERED: DEXTROSE 40% GEL 15 GM TUBE PO PRN ×2 (18:18)
[2020-02-08] MEDS ORDERED: LORAZEPAM INJ 2 MG/1 ML VIAL IV PRN (18:30)
--- NOTE | 2020-02-08 18:33 | PDOC H&P ---
History of Present Illness Admission Date/PCP: 02/08/20 17:56 Patient complains of: abdominal pain, N&V History of Present Illness: KACY DUMAS is a 29 year old male with a history of alcoholism and recurrent pancreatitis. In fact admitted the patient July 13 of this year with the same presentation. He states that he had 1 tall boy beer 2 to 3 days ago. When he woke up he was having significant abdominal pain. This was associated with nausea and occasional vomiting. The emesis was saliva and bilious fluid. He denies any fever or chills. He does report that the pain radiates to his back. He was worried that this might be a kidney injury. CT scan reveals hepatomegaly with hepatic steatosis similar to June. He has a diffusely enlarged sanches creas. There is peripancreatic fluid extending to the left pericolic gutter. It also surrounds the inferior right hepatic lobe. This is increased from June. He is also tachycardic and this is likely volume depletion. Past Medical History Cardiac Medical History: Denies: Congestive Heart Failure, Myocardial Infarction, Peripheral Vascular Disease Pulmonary Medical History: Denies: Asthma, Chronic Obstructive Pulmonary Disease (COPD), Respiratory Failure EENT Medical History: Denies: Cataracts, Ears, Nose, Throat Neurological Medical History: Denies: Ischemic CVA Endocrine Medical History: Denies: Hypothyroidism, Obesity Renal/ Medical History: Denies: Chronic Kidney Disease, Nephrolithiasis Malignancy Medical History: Reports: None GI Medical History: Reports: Hepatitis, Other - Pancreatitis, steatohepatitis Musculoskeltal Medical History: Reports: Other - Fall from ladder with C-spine fracture, multiple fractured ribs and punctur Psychiatric Medical History: Reports: Alcohol Dependency, Depression, Tobacco Dependency Traumatic Medical History: Reports: Pneumothorax, Other - As above Past Surgical History Past Surgical History: Reports: None Social History Information Source: Patient, [facility] Records Lives with: Spouse/Significant other Smoking Status: Current Every Day Smoker Cigarettes Packs Per Day: 2 Electronic Cigarette use?: No Frequency of Alcohol Use: Heavy Hx Recreational Drug Use: Yes Drugs: Marijuana Hx Prescription Drug Abuse: No - Advance Directive Resuscitation Status: Do Not Resuscitate Surrogate healthcare decision maker:: This is consistent with his June admission. Nargis Shelly is listed as the emergency contact Family History Family History: CAD Parental Family History Reviewed: Yes Children Family History Reviewed: NA Sibling(s) Family History Reviewed.: Yes Medication/Allergy Home Medications: Omeprazole Magnesium [Prilosec Otc] 20 mg PO DAILY 07/13/19 Hydrocodone/Acetaminophen [[place] 5-325 mg Tablet] 1 tab PO Q6 PRN 3 Days #12 tablet 12/31/19 Ondansetron [Zofran Odt 4 mg Tablet] 1 tab PO Q4H PRN 9 Days #15 tab.rapdis 12/31/19 Allergies/Adverse Reactions: No Known Allergies Allergy (Unverified 02/08/20 14:56) Review of Systems All systems: reviewed and no additional remarkable complaints except as stated Constitutional: PRESENT: fatigue Gastrointestinal: PRESENT: abdominal pain, diarrhea, nausea, vomiting Musculoskeletal: PRESENT: back pain Physical Exam Vital Signs: Temp Pulse Resp BP Pulse Ox 98.1 F 150 H 16 112/82 96 02/08/20 14:42 02/08/20 14:42 02/08/20 16:31 02/08/20 16:31 02/08/20 16:31 Intake & Output 02/07/20 02/08/20 02/09/20 06:59 06:59 06:59 Intake Total 1000 Balance 1000 Weight 64.6 kg General appearance: PRESENT: cooperative, well-developed, other - moderate distress. ABSENT: disheveled Head exam: PRESENT: atraumatic, normocephalic Eye exam: PRESENT: conjunctiva pink, EOMI, PERRLA. ABSENT: scleral icterus Ear exam: PRESENT: normal external ear exam. ABSENT: bleeding, drainage Mouth exam: PRESENT: dry mucosa, neck supple, tongue midline Teeth exam: ABSENT: edentulous, poor dentation Neck exam: PRESENT: full ROM. ABSENT: carotid bruit, JVD, lymphadenopathy, tracheostomy Respiratory exam: PRESENT: clear to auscultation cheri, symmetrical, unlabored. ABSENT: prolonged expiratory phas, rales, rhonchi, tachypnea, wheezes Cardiovascular exam: PRESENT: +S1, +S2, tachycardia, other - S4. ABSENT: bradyc ardia, diastolic murmur, irregular rhythm, systolic murmur Pulses: PRESENT: normal radial pulses, normal dorsalis pedis pul GI/Abdominal exam: PRESENT: normal bowel sounds, soft, tenderness - upper abdomen mainly epigastrum. ABSENT: distended, guarding Rectal exam: PRESENT: deferred Gentrourinary exam: ABSENT: indwelling catheter Extremities exam: ABSENT: pedal edema Musculoskeletal exam: PRESENT: ambulatory, normal inspection. ABSENT: deformit y, dislocation Neurological exam: PRESENT: alert, awake, oriented to person, oriented to place, oriented to time, oriented to situation, CN II-XII grossly intact. ABSENT: alt ered, motor sensory deficit Psychiatric exam: PRESENT: flat affect. ABSENT: agitated, anxious Focused psych exam: ABSENT: delusional, paranoid, restlessness Skin exam: PRESENT: dry, normal color, warm. ABSENT: abrasion, erythema, rash Results Laboratory Results: 02/08/20 15:09 02/08/20 15:09 02/08/20 02/08/20 02/08/20 15:09 15:09 15:09 WBC 25.9 H RBC 4.92 Hgb 16.8 Hct 47.7 MCV 97 MCH 34.0 H MCHC 35.1 RDW 15.0 H Plt Count 237 Seg Neutrophils % Not Reportable Sodium 132.6 L Potassium 3.6 Chloride 98 Carbon Dioxide 24 Anion Gap 11 BUN 16 Creatinine 0.86 Est GFR ( Amer) > 60 Glucose 124 H Calcium 9.7 Total Bilirubin 1.8 H AST 54 Alkaline Phosphatase 138 H Total Protein 7.0 Albumin 4.5 Triglycerides 138 Amylase 259 H Lipase 2129.2 H Impressions: Abdomen/Pelvis CT 02/08/20 14:58 IMPRESSION: 1. Acute pancreatitis with moderate ascites in the abdomen and pelvis. Interval development of a pancreatic pseudocyst in the left upper abdomen mesenteries since previous. Increased ascites. 2. Hepatomegaly with mild hepatic steatosis. Assessment and Plan - Diagnosis (1) Pancreatitis, alcoholic, acute Qualifiers: Acute pancreatitis complication: no infection or necrosis Qualified Code(s): K85.20 - Alcohol induced acute pancreatitis without necrosis or infecti on Is this a current diagnosis for this admission?: Yes (2) Steatohepatitis, alcoholic Is this a current diagnosis for this admission?: Yes (3) Ascites Qualifiers: Ascites type: due to alcoholic hepatitis Qualified Code(s): K70.11 - Alcoholic hepatitis with ascites Is this a current diagnosis for this admission?: Yes (4) Pancreatic pseudocyst Is this a current diagnosis for this admission?: Yes (5) Abdominal pain Qualifiers: Abdominal location: epigastric Qualified Code(s): R10.13 - Epigastric pain Is this a current diagnosis for this admission?: Yes (6) Hyperbilirubinemia Is this a current diagnosis for this admission?: Yes (7) Tachycardia Is this a current diagnosis for this admission?: Yes (8) Tobacco dependence due to cigarettes Is this a current diagnosis for this admission?: Yes (9) Nausea & vomiting Qualifiers: Vomiting type: unspecified Vomiting Intractability: non-intractable Qualified Code(s): R11.2 - Nausea with vomiting, unspecified Is this a current diagnosis for this admission?: Yes (10) Diarrhea Qualifiers: Diarrhea type: unspecified type Qualified Code(s): R19.7 - Diarrhea, unspecified Is this a current diagnosis for this admission?: Yes - Plan Summary Summary: 02/08/2020 Patient with recurrent alcohol induced pancreatitis, steatohepatitis, ascites and pancreatic pseudocyst-patient will remain n.p.o. except for sips of water. He will get aggressive IV fluids. IV pain medication as well as antiemetics have been ordered. Will monitor chemistries daily. Nausea, vomiting and diarrhea-aggressive IV hydration as noted above. Need to monitor and anticipate electrolyte loss. IV famotidine. Hyperbilirubinemia-no obstruction on CT scan. Will monitor closely. Should resolve with fluids. Tachycardia-most likely related to volume. Aggressive IV fluids and monitor the patient on telemetry Nicotine dependence due to cigarettes-apply nicotine patch - Time Time Spent with patient: 35 or more minutes Smoking Cessation Education: 3 to 10 minutes Medications reviewed and adjusted accordingly: Yes Anticipated Discharge Disposition: Home, Self Care Anticipated Discharge Timeframe: 4 to 5 days - Inpatient Certification Based on my medical assessment, after consideration of the patient's comorbidities, presenting symptoms, or acuity I expect that the services needed warrant INPATIENT care.: Yes I certify that my determination is in accordance with my understanding of Medicare's requirements for reasonable and necessary INPATIENT services [42 CFR 412.3e].: Yes Medical Necessity: Significant Comorbidiites Make Outpatient Treatment Too Risky, Need For IV Fluids, Need For Continuous Telemetry Monitoring, Need for Pain Control Post Hospital Care: D/C or Transfer Summary
[2020-02-08 19:00] LABS: APPEARANCE,URINE CLEAR; BILIRUBIN,URINE NEGATIVE (NEGATIVE); COLOR,URINE YELLOW; GLUCOSE, URINE NEGATIVE (NEGATIVE); KETONES,URINE TRACE mg/dL (NEGATIVE); LEUKOCYTE ESTERASE,URINE NEGATIVE (NEGATIVE); NITRITE,URINE NEGATIVE (NEGATIVE); PROTEIN,URINE 30 mg/dL (NEGATIVE); UROBILINOGEN,URINE NEGATIVE mg/dL (<2.0)
[2020-02-08 19:02] LABS: URINE SPECIFIC GRAVITY > 1.060
[2020-02-08] MEDS ORDERED: POTASSI CL 20 MEQ/50 ML RIDER 20 MEQ/50 ML RTUPB IV ONE (19:28)
[2020-02-08] MEDS: MORPHINE SULFATE 10 MG/ML INJ IV PRN (20:09)
[2020-02-08] MEDS: FAMOTIDINE INJ/PF 20 MG/2 ML SDV IV SCH (22:34)
[2020-02-08] MEDS: RINGERS SOLUTION,LACTATED 1,000 ML IV PRN (22:35)
[2020-02-09] MEDS: MORPHINE SULFATE 10 MG/ML INJ IV PRN ×5 (01:38→17:23)
[2020-02-09 05:09] LABS: INTERNATIONAL RATION (INR) 0.91; PROTHROMBIN TIME 12.5 SEC (11.4-15.4)
[2020-02-09 05:12] LABS: HEMATOCRIT 39.3 % (37.9-51.0); MEAN CORPUSCULAR HEMOGLOBIN 34.5 pg (27.0-33.4); MEAN CORPUSCULAR HGB CONC 34.9 g/dL (32.0-36.0); MEAN CORPUSCULAR VOLUME 99 fl (80-97); PLATELET COUNT 150 10^3/uL (150-450); RED BLOOD COUNT 3.98 10^6/uL (4.35-5.55); RED CELL DISTRIBUTION WIDTH 14.9 % (11.5-14.0); WHITE BLOOD COUNT 12.9 10^3/uL (4.0-10.5)
[2020-02-09 05:17] LABS: HEMOGLOBIN 13.7 g/dL (13.5-17.0)
[2020-02-09 05:21] LABS: ALKALINE PHOSPHATASE 96 U/L (38-126); ANION GAP 5 (5-19); ASPARTATE AMINO TRANSFERASE 35 U/L (17-59); BILIRUBIN,DIRECT 0.3 mg/dL (0.0-0.4); BILIRUBIN,TOTAL 0.7 mg/dL (0.2-1.3); BLOOD UREA NITROGEN 9 mg/dL (7-20); CALCIUM 8.4 mg/dL (8.4-10.2); CARBON DIOXIDE 27 mmol/L (22-30); CHLORIDE 101 mmol/L (98-107); GLUCOSE 100 mg/dL (75-110); POTASSIUM 4.2 mmol/L (3.6-5.0); TOTAL PROTEIN 5.1 g/dL (6.3-8.2)
[2020-02-09] MEDS ORDERED: NICOTINE 14 MG/24 HR PATCH.TD24 TD SCH (10:00)
[2020-02-09] MEDS ORDERED: ENOXAPARIN SODIUM INJ 40 MG/0.4 ML DISP.SYRIN SUBCUT SCH (10:00)
[2020-02-09] MEDS: FAMOTIDINE INJ/PF 20 MG/2 ML SDV IV SCH (10:23)
[2020-02-09] MEDS: RINGERS SOLUTION,LACTATED 1,000 ML IV PRN (10:23)
[2020-02-09 11:55] VITALS: BP 112/50
[2020-02-09] MEDS ORDERED: MAGNESIUM SULFATE/D5W 1 GM/100 ML RTUPB IV SCH (16:30)
--- NOTE | 2020-02-09 16:55 | PDOC DISCHARGE SUMMARY ---
Impression - Admit/DC Date/PCP Admission Date/Primary Care Provider: 02/08/20 17:56 Discharge Date: 02/09/20 - Discharge Diagnosis (1) Pancreatitis, alcoholic, acute Is this a current diagnosis for this admission?: Yes (2) Steatohepatitis, alcoholic Is this a current diagnosis for this admission?: Yes (3) Ascites Is this a current diagnosis for this admission?: Yes (4) Pancreatic pseudocyst Is this a current diagnosis for this admission?: Yes (5) Abdominal pain Is this a current diagnosis for this admission?: Yes (6) Hyperbilirubinemia Is this a current diagnosis for this admission?: Yes (7) Tachycardia Is this a current diagnosis for this admission?: Yes (8) Tobacco dependence due to cigarettes Is this a current diagnosis for this admission?: Yes (9) Nausea & vomiting Is this a current diagnosis for this admission?: Yes (10) Diarrhea Is this a current diagnosis for this admission?: Yes - Assessment Summary: 02/08/2020 Patient with recurrent alcohol induced pancreatitis, steatohepatitis, ascites and pancreatic pseudocyst-patient will remain n.p.o. except for sips of water. He will get aggressive IV fluids. IV pain medication as well as antiemetics have been ordered. Will monitor chemistries daily. Nausea, vomiting and diarrhea-aggressive IV hydration as noted above. Need to monitor and anticipate electrolyte loss. IV famotidine. Hyperbilirubinemia-no obstruction on CT scan. Will monitor closely. Should resolve with fluids. Tachycardia-most likely related to volume. Aggressive IV fluids and monitor the patient on telemetry Nicotine dependence due to cigarettes-apply nicotine patch - Additional Information Resuscitation Status: Do Not Resuscitate Discharge Diet: Clear Liquids, Other (Comments) - Advance as tolerated Discharge Activity: Activity As Tolerated Prescriptions: Ciprofloxacin HCl [Cipro 500 mg Tablet] 500 mg PO BID #20 tablet Tramadol HCl [Ultram 50 mg Tablet] 50 mg PO Q6 PRN #10 tablet PRN Reason: Home Medications: Ciprofloxacin HCl [Cipro 500 mg Tablet] 500 mg PO BID #20 tablet 02/09/20 Multivitamin [Tab-A-Faith] 1 each PO DAILY 02/09/20 Nicotine [Nicoderm 14 mg/24 Hr Transdermal Patch] 1 each TD DAILY patch.td24 02/09/20 Thiamine HCl [Thiamine 100 mg Tablet] 100 mg PO DAILY 02/09/20 Tramadol HCl [Ultram 50 mg Tablet] 50 mg PO Q6 PRN #10 tablet 02/09/20 History of Present Illiness History of Present Illness: KACY DUMAS is a 29 year old male with a history of alcoholism and recurrent pancreatitis. In fact admitted the patient July 13 of this year with the same presentation. He states that he had 1 tall boy beer 2 to 3 days ago. When he woke up he was having significant abdominal pain. This was associated with nausea and occasional vomiting. The emesis was saliva and bilious fluid. He denies any fever or chills. He does report that the pain radiates to his back. He was worried that this might be a kidney injury. CT scan reveals hepatomegaly with hepatic steatosis similar to June. He has a diffusely enlarged p ancreas. There is peripancreatic fluid extending to the left pericolic gutter. It also surrounds the inferior right hepatic lobe. This is increased from June. He is also tachycardic and this is likely volume depletion. Hospital Course Hospital Course: The patient reports an urgent family issue at home. He requests discharge. After discussion regarding the risks and benefits I thought it was reasonable for discharge to home today. He did have an unremarkable course. With aggressive fluids his renal function improved significantly. It is still not normal but I encouraged him to drink lots of fluids. His abdomen is cloth dyeing range tender. Physical Exam Vital Signs: Temp Pulse Resp BP Pulse Ox 98.4 F 100 16 112/50 L 99 02/09/20 11:54 02/09/20 11:54 02/09/20 11:54 02/09/20 11:54 02/09/20 11:54 Intake & Output 02/08/20 02/09/20 02/10/20 06:59 06:59 06:59 Intake Total 3000 Output Total 500 500 Balance 2500 -500 Weight 68.7 kg General appearance: PRESENT: mild distress, well-developed Respiratory exam: PRESENT: clear to auscultation cheri, symmetrical, unlabored. ABSENT: rales, rhonchi, tachypnea, wheezes Cardiovascular exam: PRESENT: RRR, +S1, +S2. ABSENT: bradycardia, diastolic murmur, irregular rhythm, systolic murmur, tachycardia GI/Abdominal exam: PRESENT: ascites, distended, normal bowel sounds, tenderness Results Laboratory Results: WBC 12.9 10^3/uL (4.0-10.5) H 02/09/20 04:42 RBC 3.98 10^6/uL (4.35-5.55) L 02/09/20 04:42 Hgb 13.7 g/dL (13.5-17.0) D 02/09/20 04:42 Hct 39.3 % (37.9-51.0) 02/09/20 04:42 MCV 99 fl (80-97) H 02/09/20 04:42 MCH 34.5 pg (27.0-33.4) H 02/09/20 04:42 MCHC 34.9 g/dL (32.0-36.0) 02/09/20 04:42 RDW 14.9 % (11.5-14.0) H 02/09/20 04:42 Plt Count 150 10^3/uL (150-450) 02/09/20 04:42 Lymph % (Auto) Not Reportable 02/08/20 15:09 [place] % (Auto) Not Reportable 02/08/20 15:09 Eos % (Auto) Not Reportable 02/08/20 15:09 Baso % (Auto) Not Reportable 02/08/20 15:09 Absolute Neuts (auto) Not Reportable 02/08/20 15:09 Absolute Lymphs (auto) Not Reportable 02/08/20 15:09 Absolute Monos (auto) Not Reportable 02/08/20 15:09 Absolute Eos (auto) Not Reportable 02/08/20 15:09 Absolute Basos (auto) Not Reportable 02/08/20 15:09 Total Counted 100 02/08/20 15:09 Seg Neutrophils % Not Reportable 02/08/20 15:09 Seg Neuts % (Manual) 85 % (42-78) H 02/08/20 15:09 Lymphocytes % (Manual) 8 % (13-45) L 02/08/20 15:09 Monocytes % (Manual) 7 % (3-13) 02/08/20 15:09 Eosinophils % (Manual) 0 % (0-6) 02/08/20 15:09 Basophils % (Manual) 0 % (0-2) 02/08/20 15:09 Abs Neuts (Manual) 22.0 10^3/uL (1.7-8.2) H 02/08/20 15:09 Abs Lymphs (Manual) 2.1 10^3/uL (0.5-4.7) 02/08/20 15:09 Abs Monocytes (Manual) 1.8 10^3/uL (0.1-1.4) H 02/08/20 15:09 Absolute Eos (Manual) 0.0 10^3/uL (0.0-0.6) 02/08/20 15:09 Abs Basophils (Manual) 0.0 10^3/uL (0.0-0.2) 02/08/20 15:09 Platelet Comment ADEQUATE 02/08/20 15:09 Anisocytosis SLIGHT 02/08/20 15:09 PT 12.5 SEC (11.4-15.4) 02/09/20 04:42 INR 0.91 02/09/20 04:42 Sodium 132.7 mmol/L (137-145) L 02/09/20 04:42 Potassium 4.2 mmol/L (3.6-5.0) 02/09/20 04:42 Chloride 101 mmol/L (98-107) 02/09/20 04:42 Carbon Dioxide 27 mmol/L (22-30) 02/09/20 04:42 Anion Gap 5 (5-19) 02/09/20 04:42 BUN 9 mg/dL (7-20) 02/09/20 04:42 Creatinine 0.74 mg/dL (0.52-1.25) 02/09/20 04:42 Est GFR ( Amer) > 60 (>60) 02/09/20 04:42 Est GFR (MDRD) Non-Af > 60 (>60) 02/09/20 04:42 Glucose 100 mg/dL (75-110) 02/09/20 04:42 Calcium 8.4 mg/dL (8.4-10.2) 02/09/20 04:42 Magnesium 1.5 mg/dL (1.6-2.3) L 02/09/20 04:42 Total Bilirubin 0.7 mg/dL (0.2-1.3) 02/09/20 04:42 Direct Bilirubin 0.3 mg/dL (0.0-0.4) 02/09/20 04:42 Neonat Total Bilirubin Not Reportable 02/09/20 04:42 Neonat Direct Bilirubin Not Reportable 02/09/20 04:42 Neonat Indirect Bili Not Reportable 02/09/20 04:42 AST 35 U/L (17-59) 02/09/20 04:42 ALT 41 U/L (<50) 02/09/20 04:42 Alkaline Phosphatase 96 U/L (38-126) 02/09/20 04:42 Total Protein 5.1 g/dL (6.3-8.2) L 02/09/20 04:42 Albumin 3.0 g/dL (3.5-5.0) L 02/09/20 04:42 Triglycerides 138 mg/dL (<150) 02/08/20 15:09 Amylase 259 U/L (30-110) H 02/08/20 15:09 Lipase 1298.0 U/L (23-300) H 02/09/20 04:42 Urine Color YELLOW 02/08/20 18:30 Urine Appearance CLEAR 02/08/20 18:30 Urine pH 5.0 (5.0-9.0) 02/08/20 18:30 Ur Specific [place] > 1.060 02/08/20 18:30 Urine Protein 30 mg/dL (NEGATIVE) H 02/08/20 18:30 Urine Glucose (UA) NEGATIVE mg/dL (NEGATIVE) 02/08/20 18:30 Urine Ketones TRACE mg/dL (NEGATIVE) H 02/08/20 18:30 Urine Blood SMALL (NEGATIVE) H 02/08/20 18:30 Urine Nitrite NEGATIVE (NEGATIVE) 02/08/20 18:30 Urine Bilirubin NEGATIVE (NEGATIVE) 02/08/20 18:30 Urine Urobilinogen NEGATIVE mg/dL (<2.0) 02/08/20 18:30 Ur Leukocyte Esterase NEGATIVE (NEGATIVE) 02/08/20 18:30 Urine WBC (Auto) 4 /HPF 02/08/20 18:30 Urine RBC (Auto) 2 /HPF 02/08/20 18:30 Squamous Epi Cells Auto 1 /HPF 02/08/20 18:30 Urine Mucus (Auto) FEW /LPF 02/08/20 18:30 Urine Ascorbic Acid NEGATIVE (NEGATIVE) 02/08/20 18:30 Serum Alcohol < 10 mg/dL (NONE DETECTED) 02/08/20 15:09 Impressions: Abdomen/Pelvis CT 02/08/20 14:58 IMPRESSION: 1. Acute pancreatitis with moderate ascites in the abdomen and pelvis. Interval development of a pancreatic pseudocyst in the left upper abdomen mesenteries since previous. Increased ascites. 2. Hepatomegaly with mild hepatic steatosis. Plan Health Concerns: Alcohol-related steatohepatitis and pancreatitis increases risk for spontaneous bacterial peritonitis. The patient also has more ascites this admission then earlier this year. Plan of Treatment: Advance diet very slowly. I did send a prescription for ciprofloxacin for the possibility of SBP as well as a small amount of tramadol for pain control. The patient needs to follow-up with primary care and would benefit from evaluation by a airveyor operator. Goals: Decrease the recurrent episodes of pancreatitis. Establish with a gastroen terologist or facilities engineer as this will be a chronic ongoing problem. Time Spent: Greater than 30 Minutes Stroke Is this a Stroke Patient?: No Acute Heart Failure Is this a Heart Failure Patient?: No
== END 2020-02-09 17:37 | disposition home or self-care (01) | DRG 439 ==
LOC: ER 14:30 → EH 17:56 → 4S 22:03
PROVIDERS: ADMIT Hospitalist; ATTEND Hospitalist
DX: K85.20 Alcohol induced acute pancreatitis without necrosis or infection (principal); K86.3 Pseudocyst of pancreas; R18.8 Other ascites; F10.20 Alcohol dependence, uncomplicated; K86.0 Alcohol-induced chronic pancreatitis; K75.81 Nonalcoholic steatohepatitis (NASH); F17.210 Nicotine dependence, cigarettes, uncomplicated; Z66 Do not resuscitate
CPT/HCPCS: 36415; 74177; 80053; 80307; 81001; 82150; 83690; 83735; 84478; 85025; 85027; 85610; 93005; 93010; 96361; 96374; 96375; 99285; J2060; J2270; J2405; J2550; J3010; J3480; J7030; J7120; S0028